=== PATIENT | female | born 1950 | race Caucasian/White ===

== ENCOUNTER 2019-12-09 09:16 | Emergency (ER) | payer BC, MEDICARE ==
[~2019-12-09 09:16] MED LIST: HCTZ12.5T GT; IRB150T PO; NAPR-243 PO; PROP60CA PO; TRM50T PO
--- OUTSIDE RECORDS SUMMARY | 2019-12-09 09:52 | XMS REPORT | CCD ---
Author Author Leigh Ann Trevino Organization Nkechi Graves MD, [facility] Address [address] [place] [address] Phone Care Team Providers Care Plating Operator Name Role Phone PP Unavailable CCM Unavailable Summary Purpose Interface Exchange Insurance Providers Payer name Policy type / Coverage type Covered republican ID Effective Begin Date Effective End Date WPS Medicare Part B Medicare Part B [id number] 2015 Unknown [employer] Medicare Part B [id number] 2015 Unknown Family history Brother Diagnosis Age At Onset Heart Attack Unknown Mother Diagnosis Age At Onset Dementia Unknown Father Diagnosis Age At Onset Heart Attack Unknown Social History Social History Element Codes Description Effective Dates Marital status Unknown M amina stanton 01/16/2015 Number of children Unknown 2 01/16/2015 Employment Unknown Retir ed 01/16/[address]: 119521201 Never smoker 01/16/[address]: 656973 Currently drinks alcohol 01/16/2015 Allergies, Adverse Reactions, Alerts Substance Reaction Codes Entered Date Inactivated Date Status diarrhea Unknown 01/16/2015 No In active Date Active Penicillin Unknown 01/16/2015 No In active Date Active Past Medical History Illness Codes Condition Status Onset Date Resolved Date Urinary tract infect ion, site not specified ICD-9: 599.0 ICD-10: N39.0 Active 08/31/2018 Unknown Encounter for genera l adult medical examination with abnormal findings ICD-9: V70.0 ICD-10: Z00.01 Active 05/30/2018 Unknown Encounter for immuni zation ICD-9: V05.9 ICD-10: Z23 Active 05/30/2018 Unknown Essential (primary) hypertension ICD-9: 401.9 ICD-10: I10 Active 03/09/2016 Unknown Impaired fasting glu cose ICD-9: 790.21 ICD-10: R73.01 Active 03/09/2016 Unknown Mixed hyperlipidemia ICD-9: 272.4 ICD-10: E78.2 Active 03/09/2016 Unknown Vitamin D deficiency , unspecified ICD-9: 268.9 ICD-10: E55.9 Active 03/09/2016 Unknown Body mass index (BMI ) 36.0-36.9, adult ICD-9: V85.36 ICD-10: Z68.36 Active 09/20/2015 Unknown Morbid (severe) obes ity due to excess calories ICD-9: 278.01 ICD-10: E66.01 Active 07/22/2015 Unknown Other abnormal glucose ICD-9: 790.29 ICD-10: R73.09 Active 01/15/2015 Unknown Diabetes mellitus Ty pe 2 Unknown Active 01/16/2015 Unknown Hyperlipidemia Unknown Active 01/16/2015 Unknow n Hypertension Unknown Active 01/16/2015 Unknow n Migraines Unknown Resolved 01/16/2015 Unkn own Elevated blood sugar ICD-9: 790.29 Active 01/15/2015 Unknown ESSENTIAL HYPERTENSION ICD-9: 401.9 Active 01/15/2015 Unknown Hyperlipidemia ICD-9: 272.4 Active 01/15/2015 Unknown VITAMIN D DEFICIENCY ICD-9: 268.9 Active 01/15/2015 Unknown Problems Condition Codes Effectiv e Dates Condition Status Urinary tract infect ion, site not specified ICD-9: 599.0 ICD-10: N39.0 08/31/2018 Active Encounter for genera l adult medical examination with abnormal findings ICD-9: V70.0 ICD-10: Z00.01 05/30/2018 Active Encounter for immuni zation ICD-9: V05.9 ICD-10: Z23 05/30/2018 Active Essential (primary) hypertension ICD-9: 401.9 ICD-10: I10 03/09/2016 Active Impaired fasting glu cose ICD-9: 790.21 ICD-10: R73.01 03/09/2016 Active Mixed hyperlipidemia ICD-9: 272.4 ICD-10: E78.2 03/09/2016 Active Vitamin D deficiency , unspecified ICD-9: 268.9 ICD-10: E55.9 03/09/2016 Active Body mass index (BMI ) 36.0-36.9, adult ICD-9: V85.36 ICD-10: Z68.36 09/20/2015 Active Morbid (severe) obes ity due to excess calories ICD-9: 278.01 ICD-10: E66.01 07/22/2015 Active Other abnormal glucose ICD-9: 790.29 ICD-10: R73.09 01/15/2015 Active Diabetes mellitus Ty pe 2 Unknown 01/16/2015 Activ e Hyperlipidemia Unknown 01/16/2015 Active Hypertension Unknown 01/16/2015 Active Migraines Unknown 01/16/2015 Resolved Elevated blood sugar ICD-9: 790.29 01/15/2015 Active ESSENTIAL HYPERTENSION ICD-9: 401.9 01/15/2015 Active Hyperlipidemia ICD-9: 272.4 01/15/2015 Active VITAMIN D DEFICIENCY ICD-9: 268.9 01/15/2015 Active Medications Medication Codes Instruc tions Start Date Stop Date Sta tus Fill Instructions Benicar 40 mg tablet RxNorm: 176876 1 Tablet(s) PO daily 12/04/2018 04/02/2019 Active replaces irbesartan- wants 30 days but o k to fill 90 if cheaper Benicar 40 mg tablet RxNorm: 014179 1 Tablet(s) PO daily 12/04/2018 12/03/2018 Inactive propranolol 60 mg ta blet RxNorm: 470838 1 Tablet(s) PO BID TA KE ONE TABLET BY MOUTH TWICE A DAY 08/31/2018 11/23/2019 Active hydrochlorothiazide 12.5 mg capsule RxNorm: 721797 TAKE ONE CAPSULE BY M OUTH DAILY 08/31/2018 05/27/2019 Ac tive irbesartan 150 mg ta blet RxNorm: 912730 1 Tablet(s) PO daily TAKE ONE TABLET BY MOUTH DAILY 08/31/2018 08/30/2018 Inactive irbesartan 150 mg ta blet RxNorm: 701585 TAKE ONE TABLET BY MO UTH DAILY 08/31/2018 12/03/2018 In active hydrochlorothiazide 12.5 mg capsule RxNorm: 327648 1 Capsule(s) PO daily TAKE ONE CAPSULE BY MOUTH DAILY 08/31/2018 08/30/2018 Inactive Keflex 500 mg capsule RxNorm: 522222 1 Capsule(s) PO TID 08/31/2018 09/06/2018 Inactive hydrochlorothiazide 12.5 mg capsule RxNorm: TAKE ONE CAPSULE BY M OUTH DAILY 08/16/2017 08/10/2018 In active irbesartan 150 mg ta blet RxNorm: 748766 TAKE ONE TABLET BY MO UTH DAILY 08/16/2017 08/10/2018 In active propranolol 60 mg ta blet RxNorm: 222136 1 Tablet(s) PO BID TA KE ONE TABLET BY MOUTH TWICE A DAY 04/20/2017 07/13/2018 Inactive propranolol 60 mg ta blet RxNorm: 703433 TAKE ONE TABLET BY MO UTH TWICE A DAY 04/18/2017 04/19/2017 In active irbesartan 150 mg ta blet RxNorm: 191461 TAKE ONE TABLET BY MO UTH DAILY 10/31/2016 07/27/2017 In active hydrochlorothiazide 12.5 mg capsule RxNorm: 945093 TAKE ONE CAPSULE BY M [facility] DAILY 10/31/2016 07/27/2017 In active propranolol 60 mg ta blet RxNorm: 783744 TAKE ONE TABLET BY MO UTH TWICE A DAY 10/26/2016 01/23/2017 In active Zithromax Z-Andres 250 mg tablet RxNorm: 701073 1 Tablet(s) PO UD 08/17/2016 04/17/2017 Inactive z pack as directed propranolol 60 mg ta blet RxNorm: 275333 1 Tablet(s) PO BID 04/19/2016 04/18/2016 Inactive propranolol 60 mg ta blet RxNorm: 496519 1 Tablet(s) PO BID 04/19/2016 08/16/2016 Inactive Contrave 8 mg-90 mg tablet,extended release RxNorm: 2858750 2 Tablet(s) PO BID 09/21/2015 03/09/2016 In active propranolol ER 120 m g capsule,24 hr,extended release RxNorm: 326753 1 Capsule(s) PO daily 07/23/2015 04/18/2016 Inactive irbesartan 150 mg ta blet RxNorm: 839874 1 Tablet(s) PO daily 07/23/2015 07/16/2016 Inactive hydrochlorothiazide 12.5 mg capsule RxNorm: 1 Capsule(s) PO daily 07/23/2015 07/16/2016 In active PLEASE GIVE PT 90 ON ALL MEDICINES Vitamin D3 2,000 uni t capsule RxNorm: 498146 1 Capsule(s) PO daily 07/23/2015 09/23/2015 Inactive Belviq 10 mg tablet RxNorm: 2993392 1 Tablet(s) PO BID 07/23/2015 09/20/2015 Inactive Vitamin D2 50,000 un it capsule RxNorm: 805366 1 Capsule(s) PO weekl y and 2000u daily of vit d 01/16/2015 04/15/2015 Inactive and take 2000 u daily of Vi t D as well Vitamin D2 50,000 un it capsule RxNorm: 563018 1 Capsule(s) PO weekly 01/16/2015 01/15/2015 Inactive and take 2000 u daily of Vit D as well propranolol ER 120 m g capsule,24 hr,extended release RxNorm: 007755 1 Capsule(s) PO daily 01/16/2015 07/14/2015 Inactive hydrochlorothiazide 12.5 mg capsule RxNorm: 1 Capsule(s) PO daily 01/16/2015 07/14/2015 In active PLEASE GIVE PT 90 ON ALL MEDICINES hydrochlorothiazide 12.5 mg capsule RxNorm: 512530 1 Capsule(s) PO daily 01/16/2015 01/15/2015 In active propranolol ER 120 m g capsule,24 hr,extended release RxNorm: 727133 1 Capsule(s) PO daily 01/16/2015 01/15/2015 Inactive irbesartan 150 mg ta blet RxNorm: 20000314 1 Tablet(s) PO daily 01/16/2015 07/14/2015 Inactive irbesartan 150 mg ta blet RxNorm: 20000314 1 Tablet(s) PO daily 01/16/2015 01/15/2015 Inactive Vitamin D3 5,000 uni t tablet RxNorm: 865360 1 Tablet(s) PO daily No Start Date Active Zithromax Z-Andres 250 mg tablet RxNorm: 681094 1 Tablet(s) PO UD No Start Date 08/16/2016 Inactive z pack as directed irbesartan 150 mg ta blet RxNorm: 529010 1 Tablet(s) PO daily No Start Date 01/15/2015 Inactive Vitamin D3 2,000 uni t capsule RxNorm: 108792 1 Capsule(s) PO daily No Start Date 07/22/2015 Inactive propranolol ER 120 m g capsule,24 hr,extended release RxNorm: 211222 1 Capsule(s) PO daily No Start Date 01/15/2015 Inactive hydrochlorothiazide 12.5 mg capsule RxNorm: 1 Capsule(s) PO daily No Start Date 01/15/2015 Inactive Medication Administered No Medication Administered data Immunizations Vaccine Codes Date Status Pneumococcal (Adult) CVX: 133 05/30/2018 completed Assessments Condition Codes Effectiv e Dates Urinary tract infection, site not specified ICD-10: N39.0 ICD-9: 599.0 08/31/2018 Encounter for immunization ICD-10: Z 23 ICD-9: V05.9 05/30/2018 Encounter for general adult medical exam ination with abnormal findings ICD-10: Z00.01 ICD-9: V70.0 05/30/2018 Mixed hyperlipidemia ICD-10: E78.2 ICD-9: 272.4 04/20/2017 Essential (primary) hypertension ICD -10: I10 ICD-9: 401.9 04/20/2017 Vitamin D deficiency, unspecified IC D-10: E55.9 ICD-9: 268.9 04/20/2017 Impaired fasting glucose ICD-10: R73 .01 ICD-9: 790.21 04/20/2017 Body mass index (BMI) 36.0-36.9, adult ICD-10: Z68.36 ICD-9: V85.36 09/21/2015 Other abnormal glucose ICD-10: R73.0 9 ICD-9: 790.29 07/23/2015 Morbid (severe) obesity due to excess calories ICD-10: E66.01 ICD-9: 278.01 07/23/2015 Hyperlipidemia ICD-9: 272.4 01/16/2015 ESSENTIAL HYPERTENSION ICD-9: 401.9 01/16/2015 VITAMIN D DEFICIENCY ICD-9: 268.9 01/16/2015 Elevated blood sugar ICD-9: 790.29 01/16/2015 Reason For Visit Reason For Visit Effective Dates Notes urinary urgency 08/31/2018 Annual Medicare Wellness Exam 05/30/2018 hypertension 04/20/2017 hypertension 03/10/2016 weight loss 09/21/2015 hypertension 07/23/2015 hypertension 01/16/2015 Results Observation Observation Code Item Item Code Result Date Tsh Ord6 hTSH II 1.41 uIU/mL 04/20/2017 Lipid Ord30 CHOL 235 mg/dL 04/20/2017 Lipid Ord30 HDL 34.0 mg/dl 04/20/2017 Lipid Ord30 TRIG 255 mg/dL 04/20/2017 Lipid Ord30 LDL 150 mg/dL 04/20/2017 Lipid Ord30 C/HDL 6.9 Ratio 04/20/2017 Cbc With Differential Ord2 WBC 8.04 K/ul 04/20/2017 Cbc With Differential Ord2 RBC 4.72 M/ul 04/20/2017 Cbc With Differential Ord2 HGB 14.4 g/dl 04/20/2017 Cbc With Differential Ord2 HCT 43.1 % 04/20/2017 Cbc With Differential Ord2 Neut% 63.6 % 04/20/2017 Cbc With Differential Ord2 MCV 91.3 fl 04/20/2017 Cbc With Differential Ord2 Lymph% 27.5 % 04/20/2017 Cbc With Differential Ord2 MCH 30.5 pg 04/20/2017 Cbc With Differential Ord2 [place]% 7.2 % 04/20/2017 Cbc With Differential Ord2 MCHC 33.4 pg 04/20/2017 Cbc With Differential Ord2 Eos% 1.2 % 04/20/2017 Cbc With Differential Ord2 PLT 279 K/ul 04/20/2017 Cbc With Differential Ord2 Baso% 0.5 % 04/20/2017 Cbc With Differential Ord2 RDW 13.4 % 04/20/2017 Cbc With Differential Ord2 Neut ABS# 5.11 K/ul 04/20/2017 Cbc With Differential Ord2 Lymph ABS# 2.21 K/ul 04/20/2017 Cbc With Differential Ord2 [place] ABS# 0.6 K/ul 04/20/2017 Cbc With Differential Ord2 Eos ABS# 0.1 K/ul 04/20/2017 Cbc With Differential Ord2 Baso ABS# 0.0 K/ul 04/20/2017 %Hba1C Hmq414 % HbA1c 51856-9 5.9 % 04/20/2017 %Hba1C Urj848 Gluc Ave 123 mg/dL 04/20/2017 Vitamin D 25 Oh Wzv0457 VITAMIN D, 25 HYDROXY 53.49 ng/mL 04/20/2017 Comp Metabolic Wlv597 NA 139 mEq/L 04/20/2017 Comp Metabolic Rbs097 K 4.4 mEq/L 04/20/2017 Comp Metabolic Bpg009 CL 100 mEq/L 04/20/2017 Comp Metabolic Asv391 CO2 27.0 mEq/L 04/20/2017 Comp Metabolic Wtw736 AN ION GAP 16 04/20/2017 Comp Metabolic Ylr097 GL UCOSE 113 mg/dL 04/20/2017 Comp Metabolic Nxe377 Cr eat 0.8 mg/dL 04/20/2017 Comp Metabolic Uae497 eG FR 77 ml/min/1.73m2 04/20 Comp Metabolic Nsn143 BUN 17 mg/dL 04/20/2017 Comp Metabolic Mtp062 B/ C Ratio 21.5 Ratio 04/20/2017 Comp Metabolic Kxv617 CA LCIUM 9.9 mg/dL 04/20/2017 Comp Metabolic Rbi590 AL K PHOS 69 U/L 04/20/2017 Comp Metabolic Dko215 T(SGOT) 16 U/L 04/20/2017 Comp Metabolic Jxb734 AL T(SGPT) 13 U/L 04/20/2017 Comp Metabolic Ccp322 BI LI T 0.7 mg/dL 04/20/2017 Comp Metabolic Lqs944 AL BUMIN 4.6 g/dL 04/20/2017 Comp Metabolic Hqb066 TP RO 7.1 g/dL 04/20/2017 Comp Metabolic Vjc201 GL OB 2.6 g/dL 04/20/2017 Comp Metabolic Vpo374 A/ G Ratio 1.8 Ratio 04/20/2017 Comp Metabolic Okv068 Os mo 280 mOsmo 04/20/2017 Quick Strep Pnb3461 Quic k Strep Negative 08/17/2016 Influenza A+B Zuf097 Inf anastacia A+B Negative 08/17/2016 Vitamin D 25 Oh Fip2188 VITAMIN D, 25 HYDROXY 43.92 ng/mL 03/11/2016 %Hba1C Zbb035 % HbA1c 07628-1 5.9 % 03/10/2016 %Hba1C Smm758 Gluc Ave 123 mg/dL 03/10/2016 Comp Metabolic Het828 NA 136 mEq/L 03/10/2016 Comp Metabolic Pfd418 K 4.1 mEq/L 03/10/2016 Comp Metabolic Jea401 CL 100 mEq/L 03/10/2016 Comp Metabolic Kuu042 CO2 29.0 mEq/L 03/10/2016 Comp Metabolic Thd482 AN ION GAP 11 03/10/2016 Comp Metabolic Zsc830 GL UCOSE 110 mg/dL 03/10/2016 Comp Metabolic Jjt095 Cr eat 0.8 mg/dL 03/10/2016 Comp Metabolic Qei797 eG FR 74 ml/min/1.73m2 03/10 Comp Metabolic Phz987 BUN 26 mg/dL 03/10/2016 Comp Metabolic Ffo927 B/ C Ratio 31.7 Ratio 03/10/2016 Comp Metabolic Vfs595 CA LCIUM 9.7 mg/dL 03/10/2016 Comp Metabolic Ydf392 AL K PHOS 62 U/L 03/10/2016 Comp Metabolic Qjc914 T(SGOT) 17 U/L 03/10/2016 Comp Metabolic Tkh423 AL T(SGPT) 15 U/L 03/10/2016 Comp Metabolic Duy334 BI LI T 0.6 mg/dL 03/10/2016 Comp Metabolic Uzb665 AL BUMIN 4.4 g/dL 03/10/2016 Comp Metabolic Orn722 TP RO 7.0 g/dL 03/10/2016 Comp Metabolic Ikg470 GL OB 2.6 g/dL 03/10/2016 Comp Metabolic Rcy553 A/ G Ratio 1.7 Ratio 03/10/2016 Comp Metabolic Mmp196 Os mo 277 mOsmo 03/10/2016 Lipid Ord30 CHOL 229 mg/dL 03/10/2016 Lipid Ord30 HDL 36.0 mg/dl 03/10/2016 Lipid Ord30 TRIG 172 mg/dL 03/10/2016 Lipid Ord30 LDL 159 mg/dL 03/10/2016 Lipid Ord30 C/HDL 6.4 Ratio 03/10/2016 Tsh Ord6 hTSH II 1.40 uIU/mL 03/10/2016 Cbc With Differential Ord2 WBC 7.88 K/ul 03/10/2016 Cbc With Differential Ord2 RBC 4.74 M/ul 03/10/2016 Cbc With Differential Ord2 HGB 14.4 g/dl 03/10/2016 Cbc With Differential Ord2 HCT 44.2 % 03/10/2016 Cbc With Differential Ord2 Neut% 59.3 % 03/10/2016 Cbc With Differential Ord2 MCV 93.2 fl 03/10/2016 Cbc With Differential Ord2 Lymph% 31.0 % 03/10/2016 Cbc With Differential Ord2 MCH 30.4 pg 03/10/2016 Cbc With Differential Ord2 [place]% 7.9 % 03/10/2016 Cbc With Differential Ord2 MCHC 32.6 pg 03/10/2016 Cbc With Differential Ord2 Eos% 1.4 % 03/10/2016 Cbc With Differential Ord2 PLT 198 K/ul 03/10/2016 Cbc With Differential Ord2 Baso% 0.4 % 03/10/2016 Cbc With Differential Ord2 RDW 13.5 % 03/10/2016 Cbc With Differential Ord2 Neut ABS# 4.68 K/ul 03/10/2016 Cbc With Differential Ord2 Lymph ABS# 2.44 K/ul 03/10/2016 Cbc With Differential Ord2 [place] ABS# 0.6 K/ul 03/10/2016 Cbc With Differential Ord2 Eos ABS# 0.1 K/ul 03/10/2016 Cbc With Differential Ord2 Baso ABS# 0.0 K/ul 03/10/2016 Lipid Ord30 CHOL 196 mg/dL 09/21/2015 Lipid Ord30 HDL 34.0 mg/dl 09/21/2015 Lipid Ord30 TRIG 190 mg/dL 09/21/2015 Lipid Ord30 LDL 124 mg/dL 09/21/2015 Lipid Ord30 C/HDL 5.8 Ratio 09/21/2015 %Hba1C Lce473 % HbA1c 22607-5 5.8 % 09/21/2015 %Hba1C Mnd622 Gluc Ave 120 mg/dL 09/21/2015 Vitamin D 25 Oh Tog1823 VITAMIN D, 25 HYDROXY 32.62 ng/mL 09/21/2015 Comp Metabolic Lqv776 NA 139 mEq/L 09/21/2015 Comp Metabolic Cit259 K 4.0 mEq/L 09/21/2015 Comp Metabolic Mff094 CL 101 mEq/L 09/21/2015 Comp Metabolic Vts349 CO2 30.0 mEq/L 09/21/2015 Comp Metabolic Pid983 AN ION GAP 12 09/21/2015 Comp Metabolic Pzv795 GL UCOSE 98 mg/dL 09/21/2015 Comp Metabolic Pvs917 Cr eat 0.8 mg/dL 09/21/2015 Comp Metabolic Lfg700 eG FR 81 ml/min/1.73m2 09/20 Comp Metabolic Acg070 BUN 14 mg/dL 09/21/2015 Comp Metabolic Tvv580 B/ C Ratio 18.4 Ratio 09/21/2015 Comp Metabolic Whf090 CA LCIUM 9.5 mg/dL 09/21/2015 Comp Metabolic Wny277 AL K PHOS 57 U/L 09/21/2015 Comp Metabolic Lqa739 T(SGOT) 12 U/L 09/21/2015 Comp Metabolic Ira163 AL T(SGPT) 10 U/L 09/21/2015 Comp Metabolic Owy346 BI LI T 0.7 mg/dL 09/21/2015 Comp Metabolic Uar472 AL BUMIN 4.2 g/dL 09/21/2015 Comp Metabolic Zzk395 TP RO 6.7 g/dL 09/21/2015 Comp Metabolic Iyi795 GL OB 2.5 g/dL 09/21/2015 Comp Metabolic Yhj706 A/ G Ratio 1.7 Ratio 09/21/2015 Comp Metabolic Kzc938 Os mo 278 mOsmo 09/21/2015 Tsh Ord6 hTSH II 1.21 uIU/mL 09/21/2015 Cbc With Differential Ord2 WBC 7.82 K/ul 09/21/2015 Cbc With Differential Ord2 RBC 4.51 M/ul 09/21/2015 Cbc With Differential Ord2 HGB 13.6 g/dl 09/21/2015 Cbc With Differential Ord2 HCT 42.0 % 09/21/2015 Cbc With Differential Ord2 Neut% 59.2 % 09/21/2015 Cbc With Differential Ord2 MCV 93.1 fl 09/21/2015 Cbc With Differential Ord2 Lymph% 29.8 % 09/21/2015 Cbc With Differential Ord2 MCH 30.2 pg 09/21/2015 Cbc With Differential Ord2 [place]% 8.7 % 09/21/2015 Cbc With Differential Ord2 MCHC 32.4 pg 09/21/2015 Cbc With Differential Ord2 Eos% 1.8 % 09/21/2015 Cbc With Differential Ord2 PLT 248 K/ul 09/21/2015 Cbc With Differential Ord2 Baso% 0.5 % 09/21/2015 Cbc With Differential Ord2 RDW 13.4 % 09/21/2015 Cbc With Differential Ord2 Neut ABS# 4.63 K/ul 09/21/2015 Cbc With Differential Ord2 Lymph ABS# 2.33 K/ul 09/21/2015 Cbc With Differential Ord2 [place] ABS# 0.7 K/ul 09/21/2015 Cbc With Differential Ord2 Eos ABS# 0.1 K/ul 09/21/2015 Cbc With Differential Ord2 Baso ABS# 0.0 K/ul 09/21/2015 Cbc With Differential Ord2 New Analyzer Notice Please note new ref ranges s tarting 07-22-2015 due to implemntation of new five part differential hematolgy analyzer. 09/21/2015 Tsh Ord6 hTSH II 1.39 uIU/mL 01/16/2015 Comp Metabolic Gtn267 NA 137 mEq/L 01/16/2015 Comp Metabolic Cxg639 K 4.3 mEq/L 01/16/2015 Comp Metabolic Kwx393 CL 101 mEq/L 01/16/2015 Comp Metabolic Gls462 CO2 30.0 mEq/L 01/16/2015 Comp Metabolic Zkg485 AN ION GAP 10 01/16/2015 Comp Metabolic Vxh247 GL UCOSE 111 mg/dL 01/16/2015 Comp Metabolic Qdx570 Cr eat 0.8 mg/dL 01/16/2015 Comp Metabolic Hqv625 eG FR 78 ml/min/1.73m2 01/16 Comp Metabolic Rer662 BUN 14 mg/dL 01/16/2015 Comp Metabolic Hbs519 B/ C Ratio 17.7 Ratio 01/16/2015 Comp Metabolic Epm807 CA LCIUM 9.8 mg/dL 01/16/2015 Comp Metabolic Par356 AL K PHOS 76 U/L 01/16/2015 Comp Metabolic Snl963 T(SGOT) 12 U/L 01/16/2015 Comp Metabolic Iqr940 AL T(SGPT) 11 U/L 01/16/2015 Comp Metabolic Zgi049 BI LI T 0.7 mg/dL 01/16/2015 Comp Metabolic Kob413 AL BUMIN 4.3 g/dL 01/16/2015 Comp Metabolic Pgm652 TP RO 7.0 g/dL 01/16/2015 Comp Metabolic Iql415 GL OB 2.7 g/dL 01/16/2015 Comp Metabolic Fgj370 A/ G Ratio 1.6 Ratio 01/16/2015 Comp Metabolic Dnf285 Os mo 275 mOsmo 01/16/2015 Vitamin D 25 Oh Tuq4540 VITAMIN D, 25 HYDROXY 19.37 ng/mL 01/16/2015 %Hba1C Xia605 % HbA1c 27289-2 5.8 % 01/16/2015 %Hba1C Sfe044 Gluc Ave 120 mg/dL 01/16/2015 Cbc With Differential Ord2 WBC 10.0 K/uL 01/16/2015 Cbc With Differential Ord2 LYM 2.4 K/uL 01/16/2015 Cbc With Differential Ord2 LYM% 24.2 % 01/16/2015 Cbc With Differential Ord2 NEUT/GRAN 7.0 K/uL 01/16/2015 Cbc With Differential Ord2 NEUT/GRAN % 70.5 % 01/16/2015 Cbc With Differential Ord2 MID 0.5 K/uL 01/16/2015 Cbc With Differential Ord2 MID% 5.3 % 01/16/2015 Cbc With Differential Ord2 RBC 4.65 M/uL 01/16/2015 Cbc With Differential Ord2 HGB 14.2 g/dL 01/16/2015 Cbc With Differential Ord2 HCT 42.7 % 01/16/2015 Cbc With Differential Ord2 MCV 92 fL 01/16/2015 Cbc With Differential Ord2 MCH 31 pg 01/16/2015 Cbc With Differential Ord2 MCHC 33 g/dL 01/16/2015 Cbc With Differential Ord2 PLT 275 K/uL 01/16/2015 Cbc With Differential Ord2 RDW 13.5 % 01/16/2015 Lipid Ord30 CHOL 229 mg/dL 01/16/2015 Lipid Ord30 HDL 35.0 mg/dl 01/16/2015 Lipid Ord30 TRIG 282 mg/dL 01/16/2015 Lipid Ord30 LDL 138 mg/dL 01/16/2015 Lipid Ord30 C/HDL 6.5 Ratio 01/16/2015 Review of Systems System Result Effective Dates Constitutional No recent illness 08/31/2018 Constitutional No anorexia 08/31/2018 Constitutional No night sweats 08/31/2018 Constitutional No chills 08/31/2018 Constitutional No diaphoresis 08/31/2018 Constitutional No fatigue 08/31/2018 Constitutional No fever 08/31/2018 Constitutional No insomnia 08/31/2018 Constitutional No malaise 08/31/2018 Eyes No eye discharge Eyes No eye erythema Ears/Nose/Throat/Neck No dizziness 08/31/2018 Ears/Nose/Throat/Neck No headache 08/31/2018 Ears/Nose/Throat/Neck No nasal discharge 08/31/2018 Cardiovascular No chest pain/pressure 08/31/2018 Cardiovascular No dyspnea 08/31/2018 Cardiovascular No edema 08/31/2018 Respiratory No productive sputum 08/31/2018 Respiratory No aspiration 08/31/2018 Respiratory No cough Gastrointestinal No abdominal pain 08/31/2018 Gastrointestinal No constipation 08/31/2018 Gastrointestinal No diarrhea 08/31/2018 Genitourinary/Nephrology No breast c omplaint 08/31/2018 Musculoskeletal No joint complaint 08/31/2018 Dermatologic No rash Neurologic No alteration of consciousness 08/31/2018 Psychiatric No anxiety 0 08/31/2018 Psychiatric No depression 08/31/2018 Endocrine No dry or coarse skin 08/31/2018 Cardiovascular hypertension 08/31/2018 Genitourinary/Nephrology dysuria 08/31/2018 Genitourinary/Nephrology urinary urgency 08/31/2018 Genitourinary/Nephrology urinary frequency 08/31/2018 Constitutional No recent illness 05/30/2018 Constitutional No chills 05/30/2018 Constitutional No diaphoresis 05/30/2018 Constitutional No fever 05/30/2018 Eyes No eye erythema Ears/Nose/Throat/Neck No nasal discharge 05/30/2018 Cardiovascular No chest pain/pressure 05/30/2018 Cardiovascular No dyspnea 05/30/2018 Respiratory No cough Respiratory No dyspnea 1 07/30/2017 Neurologic No alteration of consciousness 05/30/2018 Neurologic No mental status change 05/30/2018 Constitutional No recent illness 04/20/2017 Constitutional No anorexia 04/20/2017 Constitutional No night sweats 04/20/2017 Constitutional No chills 04/20/2017 Constitutional No diaphoresis 04/20/2017 Constitutional No fatigue 04/20/2017 Constitutional No fever 04/20/2017 Constitutional No insomnia 04/20/2017 Constitutional No malaise 04/20/2017 Eyes No eye discharge Eyes No eye erythema 06/2017 Ears/Nose/Throat/Neck No dizziness 04/20/2017 Ears/Nose/Throat/Neck No headache 04/20/2017 Ears/Nose/Throat/Neck No nasal discharge 04/20/2017 Cardiovascular No chest pain/pressure 04/20/2017 Cardiovascular No dyspnea 04/20/2017 Cardiovascular No edema 04/20/2017 Respiratory No productive sputum 04/20/2017 Respiratory No aspiration 04/20/2017 Respiratory No cough 06/2017 Gastrointestinal No abdominal pain 04/20/2017 Gastrointestinal No constipation 04/20/2017 Gastrointestinal No diarrhea 04/20/2017 Genitourinary/Nephrology No breast c omplaint 04/20/2017 Musculoskeletal No joint complaint 04/20/2017 Dermatologic No rash 06/2017 Neurologic No alteration of consciousness 04/20/2017 Psychiatric No anxiety 1 Psychiatric No depression 04/20/2017 Endocrine No dry or coarse skin 04/20/2017 Constitutional No recent illness 03/10/2016 Constitutional No anorexia 03/10/2016 Constitutional No night sweats 03/10/2016 Constitutional No chills 03/10/2016 Constitutional No diaphoresis 03/10/2016 Constitutional No fatigue 03/10/2016 Constitutional No fever 03/10/2016 Constitutional No insomnia 03/10/2016 Constitutional No malaise 03/10/2016 Eyes No eye discharge Eyes No eye erythema 07/2015 Ears/Nose/Throat/Neck No dizziness 03/10/2016 Ears/Nose/Throat/Neck No headache 03/10/2016 Ears/Nose/Throat/Neck No nasal discharge 03/10/2016 Cardiovascular No chest pain/pressure 03/10/2016 Cardiovascular No dyspnea 03/10/2016 Cardiovascular No edema 03/10/2016 Respiratory No productive sputum 03/10/2016 Respiratory No aspiration 03/10/2016 Respiratory No cough 07/2015 Gastrointestinal No abdominal pain 03/10/2016 Gastrointestinal No constipation 03/10/2016 Gastrointestinal No diarrhea 03/10/2016 Genitourinary/Nephrology No breast c omplaint 03/10/2016 Musculoskeletal No joint complaint 03/10/2016 Dermatologic No rash 07/2015 Neurologic No alteration of consciousness 03/10/2016 Psychiatric No anxiety 0 03/10/2016 Psychiatric No depression 03/10/2016 Endocrine No dry or coarse skin 03/10/2016 Constitutional No recent illness 09/21/2015 Constitutional No anorexia 09/21/2015 Constitutional No night sweats 09/21/2015 Constitutional No chills 09/21/2015 Constitutional No diaphoresis 09/21/2015 Constitutional No fatigue 09/21/2015 Constitutional No fever 09/21/2015 Constitutional No insomnia 09/21/2015 Constitutional No malaise 09/21/2015 Eyes No eye discharge Eyes No eye erythema Ears/Nose/Throat/Neck No dizziness 09/21/2015 Ears/Nose/Throat/Neck No headache 09/21/2015 Ears/Nose/Throat/Neck No nasal discharge 09/21/2015 Cardiovascular No chest pain/pressure 09/21/2015 Cardiovascular No dyspnea 09/21/2015 Cardiovascular No edema 09/21/2015 Respiratory No productive sputum 09/21/2015 Respiratory No aspiration 09/21/2015 Respiratory No cough Gastrointestinal No abdominal pain 09/21/2015 Gastrointestinal No constipation 09/21/2015 Gastrointestinal No diarrhea 09/21/2015 Genitourinary/Nephrology No breast c omplaint 09/21/2015 Musculoskeletal No joint complaint 09/21/2015 Dermatologic No rash Neurologic No alteration of consciousness 09/21/2015 Psychiatric No anxiety 0 09/21/2015 Psychiatric No depression 09/21/2015 Constitutional No recent illness 07/23/2015 Constitutional No anorexia 07/23/2015 Constitutional No night sweats 07/23/2015 Constitutional No chills 07/23/2015 Constitutional No diaphoresis 07/23/2015 Constitutional No fatigue 07/23/2015 Constitutional No fever 07/23/2015 Constitutional No insomnia 07/23/2015 Constitutional No malaise 07/23/2015 Eyes No eye discharge Eyes No eye erythema Ears/Nose/Throat/Neck No dizziness 07/23/2015 Ears/Nose/Throat/Neck No headache 07/23/2015 Ears/Nose/Throat/Neck No nasal discharge 07/23/2015 Cardiovascular No chest pain/pressure 07/23/2015 Cardiovascular No dyspnea 07/23/2015 Cardiovascular No edema 07/23/2015 Respiratory No productive sputum 07/23/2015 Respiratory No aspiration 07/23/2015 Respiratory No cough Gastrointestinal No abdominal pain 07/23/2015 Gastrointestinal No constipation 07/23/2015 Gastrointestinal No diarrhea 07/23/2015 Genitourinary/Nephrology No breast c omplaint 07/23/2015 Musculoskeletal No joint complaint 07/23/2015 Dermatologic No rash Neurologic No alteration of consciousness 07/23/2015 Psychiatric No anxiety 0 07/23/2015 Psychiatric No depression 07/23/2015 Constitutional No recent illness 01/16/2015 Constitutional No anorexia 01/16/2015 Constitutional No night sweats 01/16/2015 Constitutional No diaphoresis 01/16/2015 Constitutional No chills 01/16/2015 Constitutional No fatigue 01/16/2015 Constitutional No insomnia 01/16/2015 Constitutional No fever 01/16/2015 Constitutional No malaise 01/16/2015 Constitutional No weight loss 01/16/2015 Constitutional No weight gain 01/16/2015 Eyes No eye discharge Eyes No eye erythema 04/2015 Ears/Nose/Throat/Neck No dizziness 01/16/2015 Ears/Nose/Throat/Neck No headache 01/16/2015 Ears/Nose/Throat/Neck nasal allergies 01/16/2015 Ears/Nose/Throat/Neck No nasal discharge 01/16/2015 Cardiovascular No chest pain/pressure 01/16/2015 Cardiovascular No dyspnea 01/16/2015 Cardiovascular No edema 01/16/2015 Respiratory No productive sputum 01/16/2015 Respiratory No aspiration 01/16/2015 Respiratory No cough 04/2015 Gastrointestinal No abdominal pain 01/16/2015 Gastrointestinal No constipation 01/16/2015 Gastrointestinal No diarrhea 01/16/2015 Genitourinary/Nephrology No breast c omplaint 01/16/2015 Musculoskeletal No joint complaint 01/16/2015 Dermatologic No rash 04/2015 Neurologic No alteration of consciousness 01/16/2015 Psychiatric No depression 01/16/2015 Psychiatric No anxiety 0 01/16/2015 Hematologic/Lymphatic No abnormal bl eeding and bruising 01/16/2015 Endocrine No hair loss 0 01/16/2015 Endocrine No polydipsia 01/16/2015 Endocrine No polyuria Physical Exam Exam Name System Name It em Name Status Result Effective Dates Notes Full Exam - General 1994 Constitutional general appearance Overall: well developed 08/31/2018 None Full Exam - General 1994 Constitutional general appearance Overall: in no acute distress 08/31/2018 None Full Exam - General 1994 Constitutional general appearance Overall: well nourished 08/31/2018 None Full Exam - General 1994 Eyes conjunctiva/eyelids Overall: conjunctiva clear 08/31/2018 None Full Exam - General 1994 Eyes conjunctiva/eyelids Overall: cornea clear 08/31/2018 None Full Exam - General 1994 Eyes conjunctiva/eyelids Overall: eyelids normal 08/31/2018 None Full Exam - General 1994 Eyes pupils and irises Overall: pupils equal, round, reactive to light and accomodation 08/31/2018 None Full Exam - General 1994 Ears/Nose/Throat otoscopic exam Overall: external auditory canals clear 08/31/2018 None Full Exam - General 1994 Ears/Nose/Throat otoscopic exam Overall: tympanic membranes clear 08/31/2018 None Full Exam - General 1994 Ears/Nose/Throat oral cavity/pharynx/larynx Overall: oral mucosa clear 08/31/2018 None Full Exam - General 1994 Ears/Nose/Throat oral cavity/pharynx/larynx Overall: oropharyngeal mucosa clear 08/31/2018 None Full Exam - General 1994 Ears/Nose/Throat oral cavity/pharynx/larynx Overall: no masses 08/31/2018 None Full Exam - General 1994 Respiratory auscultation Overall: breath sounds clear bilaterally 08/31/2018 None Full Exam - General 1994 Respiratory respiratory effort/rhythm Overall: no retractions 08/31/2018 None Full Exam - General 1994 Respiratory respiratory effort/rhythm Overall: normal rate 08/31/2018 None Full Exam - General 1994 Cardiovascular auscultation of heart Overall: regular rate 08/31/2018 None Full Exam - General 1994 Cardiovascular auscultation of heart Overall: normal heart sounds 08/31/2018 None Full Exam - General 1994 Cardiovascular auscultation of heart Overall: no murmurs 08/31/2018 None Full Exam - General 1994 Abdomen abdominal exam Overall: no tenderness 08/31/2018 None Full Exam - General 1994 Abdomen abdominal exam Overall: normal bowel sounds 08/31/2018 None Full Exam - General 1994 Lymphatic neck nodes Overall: anterior cervical chain benign 08/31/2018 None Full Exam - General 1994 Lymphatic neck nodes Overall: posterior cervical chain benign 08/31/2018 None Full Exam - General 1994 Musculoskeletal gait and station Overall: normal gait 08/31/2018 None Full Exam - General 1994 Musculoskeletal gait and station Overall: normal station 08/31/2018 None Full Exam - General 1994 Integument inspection of skin Overall: no rash, lesions 08/31/2018 None Full Exam - General 1994 Neurologic cranial nerves Overall: crainial nerves 2 - 12 grossly intact 08/31/2018 None Full Exam - General 1994 Psychiatric orientation/consciousness Overall: oriented to person, place and time 08/31/2018 None Full Exam - General 1994 Constitutional general appearance Overall: well developed 05/30/2018 None Full Exam - General 1994 Constitutional general appearance Overall: in no acute distress 05/30/2018 None Full Exam - General 1994 Constitutional general appearance Overall: well nourished 05/30/2018 None Full Exam - General 1994 Eyes conjunctiva/eyelids Overall: conjunctiva clear 05/30/2018 None Full Exam - General 1994 Eyes conjunctiva/eyelids Overall: eyelids normal 05/30/2018 None Full Exam - General 1994 Ears/Nose/Throat lips/teeth/gingiva Overall: benign lips 05/30/2018 None Full Exam - General 1994 Respiratory respiratory effort/rhythm Overall: no retractions 05/30/2018 None Full Exam - General 1994 Respiratory respiratory effort/rhythm Overall: normal rate 05/30/2018 None Full Exam - General 1994 Musculoskeletal head and neck Overall: head atraumatic 05/30/2018 None Full Exam - General 1994 Neurologic cranial nerves Overall: crainial nerves 2 - 12 grossly intact 05/30/2018 None Full Exam - General 1994 Psychiatric orientation/consciousness Overall: oriented to person, place and time 05/30/2018 None Full Exam - General 1994 Psychiatric mood and affect Overall: normal mood and affect 05/30/2018 None Full Exam - General 1994 Psychiatric appearance Overall: well-groomed, good eye contact 05/30/2018 None Full Exam - General 1994 Constitutional general appearance Overall: well developed 04/20/2017 None Full Exam - General 1994 Constitutional general appearance Overall: in no acute distress 04/20/2017 None Full Exam - General 1994 Constitutional general appearance Overall: well nourished 04/20/2017 None Full Exam - General 1994 Eyes conjunctiva/eyelids Overall: conjunctiva clear 04/20/2017 None Full Exam - General 1994 Eyes conjunctiva/eyelids Overall: cornea clear 04/20/2017 None Full Exam - General 1994 Eyes conjunctiva/eyelids Overall: eyelids normal 04/20/2017 None Full Exam - General 1994 Eyes pupils and irises Overall: pupils equal, round, reactive to light and accomodation 04/20/2017 None Full Exam - General 1994 Ears/Nose/Throat otoscopic exam Overall: external auditory canals clear 04/20/2017 None Full Exam - General 1994 Ears/Nose/Throat otoscopic exam Overall: tympanic membranes clear 04/20/2017 None Full Exam - General 1994 Ears/Nose/Throat oral cavity/pharynx/larynx Overall: oral mucosa clear 04/20/2017 None Full Exam - General 1994 Ears/Nose/Throat oral cavity/pharynx/larynx Overall: oropharyngeal mucosa clear 04/20/2017 None Full Exam - General 1994 Ears/Nose/Throat oral cavity/pharynx/larynx Overall: no masses 04/20/2017 None Full Exam - General 1994 Respiratory auscultation Overall: breath sounds clear bilaterally 04/20/2017 None Full Exam - General 1994 Respiratory respiratory effort/rhythm Overall: no retractions 04/20/2017 None Full Exam - General 1994 Respiratory respiratory effort/rhythm Overall: normal rate 04/20/2017 None Full Exam - General 1994 Cardiovascular auscultation of heart Overall: regular rate 04/20/2017 None Full Exam - General 1994 Cardiovascular auscultation of heart Overall: normal heart sounds 04/20/2017 None Full Exam - General 1994 Cardiovascular auscultation of heart Overall: no murmurs 04/20/2017 None Full Exam - General 1994 Abdomen abdominal exam Overall: no tenderness 04/20/2017 None Full Exam - General 1994 Abdomen abdominal exam Overall: normal bowel sounds 04/20/2017 None Full Exam - General 1994 Lymphatic neck nodes Overall: anterior cervical chain benign 04/20/2017 None Full Exam - General 1994 Lymphatic neck nodes Overall: posterior cervical chain benign 04/20/2017 None Full Exam - General 1994 Musculoskeletal gait and station Overall: normal gait 04/20/2017 None Full Exam - General 1994 Musculoskeletal gait and station Overall: normal station 04/20/2017 None Full Exam - General 1994 Integument inspection of skin Overall: no rash, lesions 04/20/2017 None Full Exam - General 1994 Neurologic cranial nerves Overall: crainial nerves 2 - 12 grossly intact 04/20/2017 None Full Exam - General 1994 Psychiatric orientation/consciousness Overall: oriented to person, place and time 04/20/2017 None Full Exam - General 1994 Constitutional general appearance Overall: well developed 03/10/2016 None Full Exam - General 1994 Constitutional general appearance Overall: in no acute distress 03/10/2016 None Full Exam - General 1994 Constitutional general appearance Overall: well nourished 03/10/2016 None Full Exam - General 1994 Eyes conjunctiva/eyelids Overall: conjunctiva clear 03/10/2016 None Full Exam - General 1994 Eyes conjunctiva/eyelids Overall: cornea clear 03/10/2016 None Full Exam - General 1994 Eyes conjunctiva/eyelids Overall: eyelids normal 03/10/2016 None Full Exam - General 1994 Eyes pupils and irises Overall: pupils equal, round, reactive to light and accomodation 03/10/2016 None Full Exam - General 1994 Ears/Nose/Throat otoscopic exam Overall: external auditory canals clear 03/10/2016 None Full Exam - General 1994 Ears/Nose/Throat otoscopic exam Overall: tympanic membranes clear 03/10/2016 None Full Exam - General 1994 Ears/Nose/Throat oral cavity/pharynx/larynx Overall: oral mucosa clear 03/10/2016 None Full Exam - General 1994 Ears/Nose/Throat oral cavity/pharynx/larynx Overall: oropharyngeal mucosa clear 03/10/2016 None Full Exam - General 1994 Ears/Nose/Throat oral cavity/pharynx/larynx Overall: no masses 03/10/2016 None Full Exam - General 1994 Respiratory auscultation Overall: breath sounds clear bilaterally 03/10/2016 None Full Exam - General 1994 Respiratory respiratory effort/rhythm Overall: no retractions 03/10/2016 None Full Exam - General 1994 Respiratory respiratory effort/rhythm Overall: normal rate 03/10/2016 None Full Exam - General 1994 Cardiovascular auscultation of heart Overall: regular rate 03/10/2016 None Full Exam - General 1994 Cardiovascular auscultation of heart Overall: normal heart sounds 03/10/2016 None Full Exam - General 1994 Cardiovascular auscultation of heart Overall: no murmurs 03/10/2016 None Full Exam - General 1994 Abdomen abdominal exam Overall: no tenderness 03/10/2016 None Full Exam - General 1994 Abdomen abdominal exam Overall: normal bowel sounds 03/10/2016 None Full Exam - General 1994 Lymphatic neck nodes Overall: anterior cervical chain benign 03/10/2016 None Full Exam - General 1994 Lymphatic neck nodes Overall: posterior cervical chain benign 03/10/2016 None Full Exam - General 1994 Musculoskeletal gait and station Overall: normal gait 03/10/2016 None Full Exam - General 1994 Musculoskeletal gait and station Overall: normal station 03/10/2016 None Full Exam - General 1994 Integument inspection of skin Overall: no rash, lesions 03/10/2016 None Full Exam - General 1994 Neurologic cranial nerves Overall: crainial nerves 2 - 12 grossly intact 03/10/2016 None Full Exam - General 1994 Psychiatric orientation/consciousness Overall: oriented to person, place and time 03/10/2016 None Full Exam - General 1994 Constitutional general appearance Overall: well developed 09/21/2015 None Full Exam - General 1994 Constitutional general appearance Overall: in no acute distress 09/21/2015 None Full Exam - General 1994 Constitutional general appearance Overall: well nourished 09/21/2015 None Full Exam - General 1994 Eyes conjunctiva/eyelids Overall: conjunctiva clear 09/21/2015 None Full Exam - General 1994 Eyes conjunctiva/eyelids Overall: cornea clear 09/21/2015 None Full Exam - General 1994 Eyes conjunctiva/eyelids Overall: eyelids normal 09/21/2015 None Full Exam - General 1994 Eyes pupils and irises Overall: pupils equal, round, reactive to light and accomodation 09/21/2015 None Full Exam - General 1994 Ears/Nose/Throat otoscopic exam Overall: external auditory canals clear 09/21/2015 None Full Exam - General 1994 Ears/Nose/Throat otoscopic exam Overall: tympanic membranes clear 09/21/2015 None Full Exam - General 1994 Ears/Nose/Throat oral cavity/pharynx/larynx Overall: oral mucosa clear 09/21/2015 None Full Exam - General 1994 Ears/Nose/Throat oral cavity/pharynx/larynx Overall: oropharyngeal mucosa clear 09/21/2015 None Full Exam - General 1994 Ears/Nose/Throat oral cavity/pharynx/larynx Overall: no masses 09/21/2015 None Full Exam - General 1994 Respiratory auscultation Overall: breath sounds clear bilaterally 09/21/2015 None Full Exam - General 1994 Respiratory respiratory effort/rhythm Overall: no retractions 09/21/2015 None Full Exam - General 1994 Respiratory respiratory effort/rhythm Overall: normal rate 09/21/2015 None Full Exam - General 1994 Cardiovascular auscultation of heart Overall: regular rate 09/21/2015 None Full Exam - General 1994 Cardiovascular auscultation of heart Overall: normal heart sounds 09/21/2015 None Full Exam - General 1994 Cardiovascular auscultation of heart Overall: no murmurs 09/21/2015 None Full Exam - General 1994 Abdomen abdominal exam Overall: no tenderness 09/21/2015 None Full Exam - General 1994 Abdomen abdominal exam Overall: normal bowel sounds 09/21/2015 None Full Exam - General 1994 Lymphatic neck nodes Overall: anterior cervical chain benign 09/21/2015 None Full Exam - General 1994 Lymphatic neck nodes Overall: posterior cervical chain benign 09/21/2015 None Full Exam - General 1994 Musculoskeletal gait and station Overall: normal gait 09/21/2015 None Full Exam - General 1994 Musculoskeletal gait and station Overall: normal station 09/21/2015 None Full Exam - General 1994 Integument inspection of skin Overall: no rash, lesions 09/21/2015 None Full Exam - General 1994 Neurologic cranial nerves Overall: crainial nerves 2 - 12 grossly intact 09/21/2015 None Full Exam - General 1994 Psychiatric orientation/consciousness Overall: oriented to person, place and time 09/21/2015 None Full Exam - General 1994 Constitutional general appearance Overall: well developed 07/23/2015 None Full Exam - General 1994 Constitutional general appearance Overall: in no acute distress 07/23/2015 None Full Exam - General 1994 Constitutional general appearance Overall: well nourished 07/23/2015 None Full Exam - General 1994 Eyes conjunctiva/eyelids Overall: conjunctiva clear 07/23/2015 None Full Exam - General 1994 Eyes conjunctiva/eyelids Overall: cornea clear 07/23/2015 None Full Exam - General 1994 Eyes conjunctiva/eyelids Overall: eyelids normal 07/23/2015 None Full Exam - General 1994 Eyes pupils and irises Overall: pupils equal, round, reactive to light and accomodation 07/23/2015 None Full Exam - General 1994 Ears/Nose/Throat otoscopic exam Overall: external auditory canals clear 07/23/2015 None Full Exam - General 1994 Ears/Nose/Throat otoscopic exam Overall: tympanic membranes clear 07/23/2015 None Full Exam - General 1994 Ears/Nose/Throat oral cavity/pharynx/larynx Overall: oral mucosa clear 07/23/2015 None Full Exam - General 1994 Ears/Nose/Throat oral cavity/pharynx/larynx Overall: oropharyngeal mucosa clear 07/23/2015 None Full Exam - General 1994 Ears/Nose/Throat oral cavity/pharynx/larynx Overall: no masses 07/23/2015 None Full Exam - General 1994 Respiratory auscultation Overall: breath sounds clear bilaterally 07/23/2015 None Full Exam - General 1994 Respiratory respiratory effort/rhythm Overall: no retractions 07/23/2015 None Full Exam - General 1994 Respiratory respiratory effort/rhythm Overall: normal rate 07/23/2015 None Full Exam - General 1994 Cardiovascular auscultation of heart Overall: regular rate 07/23/2015 None Full Exam - General 1994 Cardiovascular auscultation of heart Overall: normal heart sounds 07/23/2015 None Full Exam - General 1994 Cardiovascular auscultation of heart Overall: no murmurs 07/23/2015 None Full Exam - General 1994 Abdomen abdominal exam Overall: no tenderness 07/23/2015 None Full Exam - General 1994 Abdomen abdominal exam Overall: normal bowel sounds 07/23/2015 None Full Exam - General 1994 Lymphatic neck nodes Overall: anterior cervical chain benign 07/23/2015 None Full Exam - General 1994 Lymphatic neck nodes Overall: posterior cervical chain benign 07/23/2015 None Full Exam - General 1994 Musculoskeletal gait and station Overall: normal gait 07/23/2015 None Full Exam - General 1994 Musculoskeletal gait and station Overall: normal station 07/23/2015 None Full Exam - General 1994 Integument inspection of skin Overall: no rash, lesions 07/23/2015 None Full Exam - General 1994 Neurologic cranial nerves Overall: crainial nerves 2 - 12 grossly intact 07/23/2015 None Full Exam - General 1994 Psychiatric orientation/consciousness Overall: oriented to person, place and time 07/23/2015 None Full Exam - General 1994 Constitutional general appearance Overall: well developed 01/16/2015 None Full Exam - General 1994 Constitutional general appearance Overall: in no acute distress 01/16/2015 None Full Exam - General 1994 Constitutional general appearance Overall: well nourished 01/16/2015 None Full Exam - General 1994 Psychiatric orientation/consciousness Overall: oriented to person, place and time 01/16/2015 None Full Exam - General 1994 Neurologic cranial nerves Overall: crainial nerves 2 - 12 grossly intact 01/16/2015 None Full Exam - General 1994 Integument inspection of skin Overall: no rash, lesions 01/16/2015 None Full Exam - General 1994 Musculoskeletal gait and station Overall: normal station 01/16/2015 None Full Exam - General 1994 Musculoskeletal gait and station Overall: normal gait 01/16/2015 None Full Exam - General 1994 Lymphatic neck nodes Overall: anterior cervical chain benign 01/16/2015 None Full Exam - General 1994 Lymphatic neck nodes Overall: posterior cervical chain benign 01/16/2015 None Full Exam - General 1994 Abdomen abdominal exam Overall: no tenderness 01/16/2015 None Full Exam - General 1994 Abdomen abdominal exam Overall: normal bowel sounds 01/16/2015 None Full Exam - General 1994 Cardiovascular auscultation of heart Overall: regular rate 01/16/2015 None Full Exam - General 1994 Cardiovascular auscultation of heart Overall: normal heart sounds 01/16/2015 None Full Exam - General 1994 Cardiovascular auscultation of heart Overall: no murmurs 01/16/2015 None Full Exam - General 1994 Respiratory auscultation Overall: breath sounds clear bilaterally 01/16/2015 None Full Exam - General 1994 Respiratory respiratory effort/rhythm Overall: normal rate 01/16/2015 None Full Exam - General 1994 Respiratory respiratory effort/rhythm Overall: no retractions 01/16/2015 None Full Exam - General 1994 Ears/Nose/Throat otoscopic exam Overall: tympanic membranes clear 01/16/2015 None Full Exam - General 1994 Ears/Nose/Throat otoscopic exam Overall: external auditory canals clear 01/16/2015 None Full Exam - General 1994 Ears/Nose/Throat oral cavity/pharynx/larynx Overall: oropharyngeal mucosa clear 01/16/2015 None Full Exam - General 1994 Ears/Nose/Throat oral cavity/pharynx/larynx Overall: no masses 01/16/2015 None Full Exam - General 1994 Ears/Nose/Throat oral cavity/pharynx/larynx Overall: oral mucosa clear 01/16/2015 None Full Exam - General 1994 Eyes conjunctiva/eyelids Overall: conjunctiva clear 01/16/2015 None Full Exam - General 1994 Eyes conjunctiva/eyelids Overall: eyelids normal 01/16/2015 None Full Exam - General 1994 Eyes conjunctiva/eyelids Overall: cornea clear 01/16/2015 None Full Exam - General 1994 Eyes pupils and irises Overall: pupils equal, round, reactive to light and accomodation 01/16/2015 None Procedures Procedure Codes Date PPPS, SUBSEQ VISIT CPT- 4: G0439 05/30/2018 ADMIN PNEUMOCOCCAL V ACCINE SNOMED CT: 49585731 CPT-4: G0009 05/30/2018 PNEUMOCOCCAL VACC [address]: 24240572 CPT-4: 43775 05/30/2018 Vital Signs Date Vital 08/31/2018 Blood Pressure 1: 122/88 Code: 8480-6 BMI: 37.8 Code: 75875-9 Heart Rate 1: 74 bpm Height: 5'4" SpO2: 97% Weight: 220 lbs 05/30/2018 Blood Pressure 1: 132/70 Code: 8480-6 BMI: 37.6 Code: 56332-9 Heart Rate 1: 64 bpm Height: 5'4" SpO2: 96% Weight: 219 lbs 04/20/2017 Blood Pressure 1: 122/84 Code: 8480-6 BMI: 36.7 Code: 73497-0 Heart Rate 1: 75 bpm Height: 5'4" SpO2: 95% Weight: 214 lbs 03/10/2016 Blood Pressure 1: 120/86 Code: 8480-6 BMI: 36.6 Code: 73838-4 Heart Rate 1: 70 bpm Height: 5'4" SpO2: 96% Weight: 213 lbs 09/21/2015 Blood Pressure 1: 128/82 Code: 8480-6 BMI: 36.0 Code: 15942-7 Heart Rate 1: 74 bpm Height: 5'4" SpO2: 97% Weight: 210 lbs 07/23/2015 Blood Pressure 1: 120/80 Code: 8480-6 BMI: 36.7 Code: 76014-8 Heart Rate 1: 73 bpm Height: 5'4" SpO2: 96% Weight: 214 lbs 01/16/2015 Blood Pressure 1: 130/84 Code: 8480-6 BMI: 37.4 Code: 48332-4 Heart Rate 1: 60 bpm Height: 5'4" Weight: 218 lbs Functional Status No Functional Status data History of Present Illness Symptom Name Status Resu lt Effective Date Notes Quality constant 08/31/2018 None Onset and Resolution s udden in onset 08/31/2018 None Onset of Symptom 1 wee ks ago 08/31/2018 None Quality constant 08/31/2018 None Onset and Resolution s udden in onset 08/31/2018 None Onset of Symptom 1 wee ks ago 08/31/2018 None Limitation on Activities does not limit activities 08/31/2018 None Frequency of Episodes increasing 08/31/2018 None Triggers no known asso ciated factors 08/31/2018 None Pertinent Findings jennifer dder pain 08/31/2018 None Pertinent Findings Den ies fever 08/31/2018 None Pertinent Findings Den ies pelvic pain 08/31/2018 None Pertinent Findings Den ies vomiting 08/31/2018 None Annual Medicare Wellness Exam Alcohol Use drinks 1 days per week 05/30/2018 None Annual Medicare Wellness Exam Aspirin Use no 05/30/2018 None Annual Medicare Wellness Exam Blood Glucose (self reported) desireable (below 100) 05/30/2018 None Annual Medicare Wellness Exam Blood Pressure (self reported) diagnosed with hypertension 05/30/20 18 None Annual Medicare Wellness Exam Choles terol (self reported) diagnosed with elevated cholesterol 05/30/2018 None Annual Medicare Wellness Exam Depres sarita (last 6 months) almost never 05/30/2018 None Annual Medicare Wellness Exam Depres sarita or Hopelessness almost never 05/30/2018 None Annual Medicare Wellness Exam Descri be Your Health excellent 05/30/2018 Non e Annual Medicare Wellness Exam Exerci se Habits exercises _ days per week 05/30/2018 None Annual Medicare Wellness Exam Handli ng Stress usually [place] effectively 05/30/2018 None Annual Medicare Wellness Exam Hemagl obin A-1C (self reported) don't know 05/30/2018 No ne Annual Medicare Wellness Exam Hours of Sleep 7-8 05/30/2018 None Annual Medicare Wellness Exam Intera ction with Friends yes 05/30/2018 None Annual Medicare Wellness Exam Intere sts & Pleasure almost all of the time 05/30/2018 None Annual Medicare Wellness Exam Life S atisfaction very satisfied 05/30/2018 None Annual Medicare Wellness Exam Motor Vehicle Safety always fastens seat belt: y 05/30/20 18 None Annual Medicare Wellness Exam Smokin g and Tobacco Use non smoker 05/30/2018 No ne Annual Medicare Wellness Exam Nutrition servings of vegetables / fruit per day: 5-6 05/30/2018 None Annual Medicare Wellness Exam Nutrition servings of high fiber / whole grain per day: 4 05/30/2018 None Annual Medicare Wellness Exam Nutrition servings of fried food / high fat foods per day: 0-1 05/30/2018 None Annual Medicare Wellness Exam Social & Emotional Support always 05/30/2018 None Annual Medicare Wellness Exam Stress almost never 05/30/2018 None Annual Medicare Wellness Exam Sun Exposure protects skin when outdoors: y 05/30/2018 None hypertension Quality chr onic 04/20/2017 None hypertension Onset and Resolution ongoing 04/20/2017 None hypertension Onset of Symptom during adulthood 04/20/2017 None hypertension Severity mi ld 04/20/2017 None hypertension Frequency of Episodes unchanged 04/20/2017 None hypertension Significant Medical Condition s cardiac disease 04/20/2017 dad from [place] age 49, brother also with heart attack hypertension Triggers no known associated factors 04/20/2017 None hypertension Alleviating Factors medication 04/20/2017 None hypertension Pertinent Findings Denies dizziness 04/20/2017 None hypertension Pertinent Findings Denies dyspnea 04/20/2017 None hypertension Pertinent Findings Denies edema 04/20/2017 None hypertension Pertinent Findings Denies anxiety 04/20/2017 None hypertension Pertinent Findings Denies decreased energy 04/20/2017 None hypertension Quality chr onic 03/10/2016 None hypertension Onset and Resolution ongoing 03/10/2016 None hypertension Onset of Symptom during adulthood 03/10/2016 None hypertension Severity mi ld 03/10/2016 None hypertension Frequency of Episodes unchanged 03/10/2016 None hypertension Significant Medical Condition s cardiac disease 03/10/2016 dad from [place] age 49, brother also with heart attack hypertension Triggers no known associated factors 03/10/2016 None hypertension Alleviating Factors medication 03/10/2016 None hypertension Pertinent Findings Denies dizziness 03/10/2016 None hypertension Pertinent Findings Denies dyspnea 03/10/2016 None hypertension Pertinent Findings Denies edema 03/10/2016 None weight loss Quality inte rmittent 09/21/2015 None weight loss Onset of Symptom 1 months ago 09/21/2015 None weight loss Pertinent Findings Denies binge eating 09/21/2015 None weight loss Pertinent Findings Denies nausea 09/21/2015 None weight loss Weight Status has lost _ pounds in _weeks 09/21/2015 None weight loss Frequency of Episodes decreasing 09/21/2015 None weight loss Diet decreas ed intake 09/21/2015 None weight loss Triggers tony nge in diet 09/21/2015 None weight loss Triggers int entional weight loss 09/21/2015 None weight loss Alleviating Factors exercise 09/21/2015 None weight loss Alleviating Factors change in dietary habits 09/21/2015 None hypertension Quality chr onic 07/23/2015 None hypertension Onset and Resolution ongoing 07/23/2015 None hypertension Onset of Symptom during adulthood 07/23/2015 None hypertension Severity mi ld 07/23/2015 None hypertension Frequency of Episodes unchanged 07/23/2015 None hypertension Significant Medical Condition s cardiac disease 07/23/2015 dad from [place] age 49, brother also with heart attack hypertension Triggers no known associated factors 07/23/2015 None hypertension Alleviating Factors medication 07/23/2015 None hypertension Pertinent Findings Denies dizziness 07/23/2015 None hypertension Pertinent Findings Denies dyspnea 07/23/2015 None hypertension Pertinent Findings Denies edema 07/23/2015 None hypertension Onset and Resolution ongoing 01/16/2015 None hypertension Significant Medical Condition s cardiac disease 01/16/2015 dad from [place] age 49, brother also with heart attack hypertension Pertinent Findings Denies dizziness 01/16/2015 None hypertension Pertinent Findings Denies dyspnea 01/16/2015 None hypertension Pertinent Findings Denies edema 01/16/2015 None hypertension Quality chr onic 01/16/2015 None hypertension Onset of Symptom during adulthood 01/16/2015 None hypertension Triggers no known associated factors 01/16/2015 None hypertension Alleviating Factors medication 01/16/2015 None hypertension Severity mi ld 01/16/2015 None hypertension Frequency of Episodes unchanged 01/16/2015 None Advance Directives No Advance Directive data Encounters Encounter Performer Loca tion Codes Date ([id number]) 01960 EST. P ATIENT, LEVEL III Diagnosis: Urinary tract infection, site not specified[ICD10: N39.0] Jaycee Graves MD, [facility] CPT-4: 63294 08/31/2018 ([id number]) 26664 EST. P ATIENT, LEVEL IV Diagnosis: Essential (primary) hypertension[ICD10: I10] Diagnosis: Mixed hyperlipidemia[ICD10: E78.2] Diagnosis: Vitamin D deficiency, unspecified[ICD10: E55.9] Diagnosis: Impaired fasting glucose[ICD10: R73.01] Jaycee Graves MD, [facility] CPT-4: 97116 04/20/2017 ([id number]) 71507 EST. P ATIENT, LEVEL IV Diagnosis: Essential (primary) hypertension[ICD10: I10] Diagnosis: Mixed hyperlipidemia[ICD10: E78.2] Diagnosis: Impaired fasting glucose[ICD10: R73.01] Diagnosis: Vitamin D deficiency, unspecified[ICD10: E55.9] Jaycee Graves MD, [facility] CPT-4: 84111 03/10/2016 ([id number]) 75926 EST. P ATIENT, LEVEL IV Diagnosis: Essential (primary) hypertension[ICD10: I10] Diagnosis: Mixed hyperlipidemia[ICD10: E78.2] Diagnosis: Vitamin D deficiency, unspecified[ICD10: E55.9] Diagnosis: Impaired fasting glucose[ICD10: R73.01] Diagnosis: Body mass index (BMI) 36.0-36.9, adult[ICD10: Z68.36] Jaycee Graves MD, [facility] CPT-4: 82278 09/21/2015 ([id number]) 84400 EST. P ATIENT, LEVEL IV Diagnosis: Essential (primary) hypertension[ICD10: I10] Diagnosis: Mixed hyperlipidemia[ICD10: E78.2] Diagnosis: Other abnormal glucose[ICD10: R73.09] Diagnosis: Morbid (severe) obesity due to excess calories[ICD10: E66.01] Nkechi Graves MD, [facility] CPT-4: 66006 07/23/2015 ([id number]) OFFICE [facility] - LEVEL 3 Diagnosis: ESSENTIAL HYPERTENSION[ICD9: 401.9] Diagnosis: Hyperlipidemia[ICD9: 272.4] Diagnosis: Elevated blood sugar[ICD9: 790.29] Diagnosis: VITAMIN D DEFICIENCY[ICD9: 268.9] Jaycee Graves MD, [facility] CPT- 4: 45782 01/16/2015 Plan of Care Planned Activity Notes C odes Status Date Visit Plan: Urinary Tract Infection -discussed natural and expected course of this diagnosis and to alert me if symptoms do not follow expected course, or if any worse. UA positive for infection today in the office- plan to send for culture and will call patient with results. RX sent to patient's pharmacy. Avoid tub baths, restrictive underwear, etc. Recommend patient start on probiotic while taking the antibiotic to prevent diarrhea. Patient verbalized understanding of plan. 08/31/2018 Appointment: Jaycee Trevino WPtel: [phone] [place] (10 min) Simple 08/31/2018 Patient Education: Patient Medication Summary Completed 08/31/2018 Care Plan: Urine Culture Pending 08/31/2018 Visit Plan: Medicare Exam - today w e discussed the patients past history, immunizations, preventative exams/evaluations - colonoscopy, fecal occult blood testing, routine labs for renal function, glucose, cholesterol, osteoporosis evaluations, cardiovascular testing and cancer screenings. We have also discussed mental health and the signs/symptoms of depression. The patient was advised of home safety evaluations and the need to make sure that as the aging process continues, we need to be aware of different ways to make the home a safer place to reside. The patient has also been counseled that exercise is necessary - and of utmost importance as we age to help decrease fall risk and to maintain independece in the home. Today we discussed the need for the patient to create paperwork for Advanced directives as well as for the patient to provide this office with a copy of her DOPA paperwork for health care surrogate. 05/30/2018 Visit Plan: Medicare Exam - today w e discussed the patients past history, immunizations, preventative exams/evaluations - colonoscopy, fecal occult blood testing, routine labs for renal function, glucose, cholesterol, osteoporosis evaluations, cardiovascular testing and cancer screenings. We have also discussed mental health and the signs/symptoms of depression. The patient was advised of home safety evaluations and the need to make sure that as the aging process continues, we need to be aware of different ways to make the home a safer place to reside. The patient has also been counseled that exercise is necessary - and of utmost importance as we age to help decrease fall risk and to maintain independece in the home. Today we discussed the need for the patient to create paperwork for Advanced directives as well as for the patient to provide this office with a copy of her DOPA paperwork for health care surrogate. 05/30/2018 Appointment: Selene Rochetel: [phone] [facility] [facility] - Annual Wellness Visit 05/30/2018 Patient Education: Patient Medication Summary Completed 05/30/2018 Visit Plan: Hypertension - well con trolled - continue with current medications, continue with no added salt diet. Pt has been encouraged to exercise daily. The pt has been advised to call the office if there are any acute concerns about change in blood pressure readings at home. Hyperlipidemia - pt has been counseled about appropriate diet, exercise, and need for low fat food choices. I have discussed the need for the patient to take medications as prescribed. If the patient has negative side effects from the medication, they are to CALL the office and not abruptly discontinue the medication without discussion with a practitioner in the office. We will check labs in 3-6 months for follow up on the patient's chronic medical problem and to assure normal liver response to medications. Vitamin D deficiency-check labs Elevated glucose- check Hgb A1c 04/20/2017 Appointment: Jaycee Trevino WPtel: [phone] (30 min) Complex 04/20/2017 Patient Education: Patient Medication Summary Completed 04/20/2017 Patient Education: Obesity Completed 04/20/2017 Patient Education: Hypertension Completed 04/20/2017 Care Plan: Comp Metabolic Pending 04/20/2017 Care Plan: Cbc With Differential Pending 04/20/2017 Care Plan: %Hba1C LOIN C : 79987-8 Pending 04/20/2017 Care Plan: Tsh Pending 04/20/2017 Care Plan: Lipid Pending 04/20/2017 Care Plan: Vitamin D 25 Oh Pending 04/20/2017 Appointment: Lab Draw 08/17/2016 Appointment: Selene Roche WPtel: [facility] [facility] - Welcome to Medicare visit 07/28/2016 Visit Plan: Hypertension - well con trolled - continue with current medications, continue with no added salt diet. Pt has been encouraged to exercise daily. The pt has been advised to call the office if there are any acute concerns about change in blood pressure readings at home. Hyperlipidemia - pt has been counseled about appropriate diet, exercise, and need for low fat food choices. I have discussed the need for the patient to take medications as prescribed. If the patient has negative side effects from the medication, they are to CALL the office and not abruptly discontinue the medication without discussion with a practitioner in the office. We will check labs in 3-6 months for follow up on the patient's chronic medical problem and to assure normal liver response to medications. Vitamin D deficiency-check labs Elevated glucose- check Hgb A1c 03/10/2016 Patient Education: Patient Medication Summary Completed 03/10/2016 Patient Education: Obesity Completed 03/10/2016 Appointment: Nkechi Graves WPtel: [facility] (30 min) Complex 09/23/2015 Visit Plan: Hypertension - well con trolled - continue with current medications, continue with no added salt diet. Pt has been encouraged to exercise daily. The pt has been advised to call the office if there are any acute concerns about change in blood pressure readings at home. Hyperlipidemia - pt has been counseled about appropriate diet, exercise, and need for low fat food choices. I have discussed the need for the patient to take medications as prescribed. If the patient has negative side effects from the medication, they are to CALL the office and not abruptly discontinue the medication without discussion with a practitioner in the office. We will check labs in 3-6 months for follow up on the patient's chronic medical problem and to assure normal liver response to medications. Obesity - chronic issue with this patient. The pt has been counseled about diet changes, calorie restriction, and need to exercise. Pt will RTC in one month for weight check. Vitamin D deficiency-check labs Elevated glucose-check Hgb A1C 09/21/2015 Appointment: (30 min) Complex 09/21/2015 Patient Education: Patient Medication Summary Completed 09/21/2015 Patient Education: Obesity Completed 09/21/2015 Patient Education: Hypertension Completed 09/21/2015 Care Plan: BMI Above normal followup ANGELA F-MGMT EDUC & TRAIN 1 PT Ordered 09/21/2015 Visit Plan: Hypertension - well con trolled - continue with current medications, continue with no added salt diet. Pt has been encouraged to exercise daily. The pt has been advised to call the office if there are any acute concerns about change in blood pressure readings at home. Hyperlipidemia - pt has been counseled about appropriate diet, exercise, and need for low fat food choices. I have discussed the need for the patient to take medications as prescribed. If the patient has negative side effects from the medication, they are to CALL the office and not abruptly discontinue the medication without discussion with a practitioner in the office. We will check labs in 3-6 months for follow up on the patient's chronic medical problem and to assure normal liver response to medications. Obesity - chronic issue with this patient. The pt has been counseled about diet changes, calorie restriction, and need to exercise. Pt will RTC in one month for weight check. 07/23/2015 Appointment: [facility] Graves [facility]el[phone] [facility] [place] (15 min) Moderate 07/23/2015 Appointment: Nke[facility] Graves [facility]Ptel: [phone] [facility] [place] (30 min) Complex 07/23/2015 Patient Education: Patient Medication Summary Completed 07/23/2015 Patient Education: Hypertension Completed 07/23/2015 Visit Plan: Hypertension - well con kevincaydened - continue with current medications, continue with no added salt diet. Pt has been encouraged to exercise daily. The pt has been advised to call the office if there are any acute concerns about change in blood pressure readings at home. Hyperlipidemia - pt has been counseled about appropriate diet, exercise, and need for low fat food choices. I have discussed the need for the patient to take medications as prescribed. If the patient has negative side effects from the medication, they are to CALL the office and not abruptly discontinue the medication without discussion with a practitioner in the office. We will check labs in 3-6 months for follow up on the patient's chronic medical problem and to assure normal liver response to medications. Elevated blood sugars-check Hgb A1C Vitamin D deficiency-check vitamin D level 01/16/2015 Appointment: (S) New Patient 01/16/2015 Patient Education: Patient Medication Summary Completed 01/16/2015 Patient Education: Hypertension Completed 01/16/2015 Instructions Comment . Medicare Exam - to day we discussed the patients past history, immunizations, preventative exams/evaluations - colonoscopy, fecal occult blood testing, routine labs for renal function, glucose, cholesterol, osteoporosis evaluations, cardiovascular testing and cancer screenings. We have also discussed mental health and the signs/symptoms of depression. The patient was advised of home safety evaluations and the need to make sure that as the aging process continues, we need to be aware of different ways to make the home a safer place to reside. The patient has also been counseled that exercise is necessary - and of utmost importance as we age to help decrease fall risk and to maintain independece in the home. Today we discussed the need for the patient to create paperwork for Advanced directives as well as for the patient to provide this office with a copy of her DOPA paperwork for health care surrogate. . Medicare Exam - to day we discussed the patients past history, immunizations, preventative exams/evaluations - colonoscopy, fecal occult blood testing, routine labs for renal function, glucose, cholesterol, osteoporosis evaluations, cardiovascular testing and cancer screenings. We have also discussed mental health and the signs/symptoms of depression. The patient was advised of home safety evaluations and the need to make sure that as the aging process continues, we need to be aware of different ways to make the home a safer place to reside. The patient has also been counseled that exercise is necessary - and of utmost importance as we age to help decrease fall risk and to maintain independece in the home. Today we discussed the need for the patient to create paperwork for Advanced directives as well as for the patient to provide this office with a copy of her DOPA paperwork for health care surrogate. STOP BY IN 1 MONTH T O CHECK WEIGHT REGULAR APPOINTMENT IN 6 MONTHS . Hypertension - well controlled - chadd nue with current medications, continue with no added salt diet. Pt has been encouraged to exercise daily. The pt has been advised to call the office if there are any acute concerns about change in blood pressure readings at home. Hyperlipidemia - pt has been counseled about appropriate diet, exercise, and need for low fat food choices. I have discussed the need for the patient to take medications as prescribed. If the patient has negative side effects from the medication, they are to CALL the office and not abruptly discontinue the medication without discussion with a practitioner in the office. We will check labs in 3-6 months for follow up on the patient's chronic medical problem and to assure normal liver response to medications. Obesity - chronic issue with this patient. The pt has been counseled about diet changes, calorie restriction, and need to exercise. Pt will RTC in one month for weight check. Vitamin D deficiency-check labs Elevated glucose-check Hgb A1C . Hypertension - wel l controlled - continue with current medications, continue with no added salt diet. Pt has been encouraged to exercise daily. The pt has been advised to call the office if there are any acute concerns about change in blood pressure readings at home. Hyperlipidemia - pt has been counseled about appropriate diet, exercise, and need for low fat food choices. I have discussed the need for the patient to take medications as prescribed. If the patient has negative side effects from the medication, they are to CALL the office and not abruptly discontinue the medication without discussion with a practitioner in the office. We will check labs in 3-6 months for follow up on the patient's chronic medical problem and to assure normal liver response to medications. Vitamin D deficiency-check labs Elevated glucose-check Hgb A1c CULTURE URINE [facility] . Urinary Tract Infection-discussed natu ral and expected course of this diagnosis and to alert me if symptoms do not follow expected course, or if any worse. UA positive for infection today in the office-plan to send for culture and will call patient with results. RX sent to patient's pharmacy. Avoid tub baths, restrictive underwear, etc. Recommend patient start on probiotic while taking the antibiotic to prevent diarrhea. Patient verbalized understanding of plan. . Hypertension - wel l controlled - continue with current medications, continue with no added salt diet. Pt has been encouraged to exercise daily. The pt has been advised to call the office if there are any acute concerns about change in blood pressure readings at home. Hyperlipidemia - pt has been counseled about appropriate diet, exercise, and need for low fat food choices. I have discussed the need for the patient to take medications as prescribed. If the patient has negative side effects from the medication, they are to CALL the office and not abruptly discontinue the medication without discussion with a practitioner in the office. We will check labs in 3-6 months for follow up on the patient's chronic medical problem and to assure normal liver response to medications. Obesity - chronic issue with this patient. The pt has been counseled about diet changes, calorie restriction, and need to exercise. Pt will RTC in one month for weight check. Plan: ([id number]) SCREEN INGMAMMOGRAPHYDIGITAL . Hypertension - well controlled - chadd nue with current medications, continue with no added salt diet. Pt has been encouraged to exercise daily. The pt has been advised to call the office if there are any acute concerns about change in blood pressure readings at home. Hyperlipidemia - pt has been counseled about appropriate diet, exercise, and need for low fat food choices. I have discussed the need for the patient to take medications as prescribed. If the patient has negative side effects from the medication, they are to CALL the office and not abruptly discontinue the medication without discussion with a practitioner in the office. We will check labs in 3-6 months for follow up on the patient's chronic medical problem and to assure normal liver response to medications. Elevated blood sugars-check Hgb A1C Vitamin D deficiency-check vitamin D level . Hypertension - wel l controlled - continue with current medications, continue with no added salt diet. Pt has been encouraged to exercise daily. The pt has been advised to call the office if there are any acute concerns about change in blood pressure readings at home. Hyperlipidemia - pt has been counseled about appropriate diet, exercise, and need for low fat food choices. I have discussed the need for the patient to take medications as prescribed. If the patient has negative side effects from the medication, they are to CALL the office and not abruptly discontinue the medication without discussion with a practitioner in the office. We will check labs in 3-6 months for follow up on the patient's chronic medical problem and to assure normal liver response to medications. Vitamin D deficiency-check labs Elevated glucose-check Hgb A1c
--- OUTSIDE RECORDS SUMMARY | 2019-12-09 09:53 | XMS REPORT | CCD ---
Author Author Leigh Ann Trevino Organization Nkechi Graves MD, [facility] Address [address] [place] [address] Phone Care Team Providers Care It Senior Analyst Name Role Phone PP Unavailable CCM Unavailable Summary Purpose Interface Exchange Insurance Providers Payer name Policy type / Coverage type Covered republican ID Effective Begin Date Effective End Date WPS Medicare Part B Medicare Part B [id number] 2015 Unknown [employer] Medicare Part B [id number] 2015 Unknown Family history Brother Diagnosis Age At Onset Heart Attack Unknown Mother Diagnosis Age At Onset Dementia Unknown Father Diagnosis Age At Onset Heart Attack Unknown Social History Social History Element Codes Description Effective Dates Marital status Unknown M amina [place]anton 01/16/2015 Number of children Unknown 2 01/16/2015 Employment Unknown Retir ed 01/16/[address]: 912925425 Never smoker 01/16/[address]: 952169 Currently drinks alcohol 01/16/2015 Allergies, Adverse Reactions, [...] Date Stop Date Sta tus Fill Instructions propranolol 60 mg ta blet RxNorm: 638636 1 Tablet(s) PO BID TA KE ONE TABLET BY MOUTH TWICE A DAY 08/31/2018 11/23/2019 Active hydrochlorothiazide 12.5 mg capsule RxNorm: 383563 TAKE ONE CAPSULE BY M OUTH DAILY 08/31/2018 05/27/2019 Ac tive irbesartan 150 mg ta blet RxNorm: 725313 TAKE ONE TABLET BY MO UTH DAILY 08/31/2018 05/27/2019 Ac tive Keflex 500 mg capsule RxNorm: 677933 1 Capsule(s) PO TID 08/31/2018 09/06/2018 Active irbesartan 150 mg ta blet RxNorm: 792987 1 Tablet(s) PO daily TAKE ONE TABLET BY MOUTH DAILY 08/31/2018 08/30/2018 Inactive hydrochlorothiazide 12.5 mg capsule RxNorm: 1 Capsule(s) PO daily TAKE ONE CAPSULE BY MOUTH DAILY 08/31/2018 08/30/2018 Inactive hydrochlorothiazide 12.5 mg capsule RxNorm: TAKE ONE CAPSULE BY M OUTH DAILY 08/16/2017 08/10/2018 In active irbesartan 150 mg ta blet RxNorm: 640345 TAKE ONE TABLET BY MO UTH DAILY 08/16/2017 08/10/2018 In active propranolol 60 mg ta blet RxNorm: 093180 1 Tablet(s) PO BID TA KE ONE TABLET BY MOUTH TWICE A DAY 04/20/2017 07/13/2018 Inactive propranolol 60 mg ta blet RxNorm: 075061 TAKE ONE TABLET BY MO UTH TWICE A DAY 04/18/2017 04/19/2017 In active irbesartan 150 mg ta blet RxNorm: 20000314 TAKE ONE TABLET BY MO [facility] DAILY 10/31/2016 07/27/2017 In active hydrochlorothiazide 12.5 mg capsule RxNorm: TAKE ONE CAPSULE BY [facility] DAILY 10/31/2016 07/27/2017 In active propranolol 60 mg ta blet RxNorm: 391120 TAKE ONE TABLET BY [facility] TWICE A DAY 10/26/2016 01/23/2017 In active Zithromax Z-Andres 250 mg tablet RxNorm: 940021 1 Tablet(s) PO UD 08/17/2016 04/17/2017 Inactive z pack as directed propranolol 60 mg ta blet RxNorm: 573753 1 Tablet(s) PO BID 04/19/2016 04/18/2016 Inactive propranolol 60 mg ta blet RxNorm: 455024 1 Tablet(s) PO BID 04/19/2016 08/16/2016 Inactive Contrave 8 mg-90 mg tablet,extended release RxNorm: 0522899 2 Tablet(s) PO BID 09/21/2015 03/09/2016 In active propranolol ER 120 m g capsule,24 hr,extended release RxNorm: 665381 1 Capsule(s) PO daily 07/23/2015 04/18/2016 Inactive irbesartan 150 mg ta blet RxNorm: 741128 1 Tablet(s) PO daily 07/23/2015 07/16/2016 Inactive hydrochlorothiazide 12.5 mg capsule RxNorm: 1 Capsule(s) PO daily 07/23/2015 07/16/2016 In active PLEASE GIVE PT 90 ON ALL MEDICINES Vitamin D3 2,000 uni t capsule RxNorm: 996608 1 Capsule(s) PO daily 07/23/2015 09/23/2015 Inactive Belviq 10 mg tablet RxNorm: 1193458 1 Tablet(s) PO BID 07/23/2015 09/20/2015 Inactive Vitamin D2 50,000 un it capsule RxNorm: 776111 1 Capsule(s) PO weekl y and 2000u daily of vit d 01/16/2015 04/15/2015 Inactive and take 2000 u daily of Vi t D as well Vitamin D2 50,000 un it capsule RxNorm: 907682 1 Capsule(s) PO weekly 01/16/2015 01/15/2015 Inactive and take 2000 u daily of Vit D as well propranolol ER 120 m g capsule,24 hr,extended release RxNorm: 156653 1 Capsule(s) PO daily 01/16/2015 07/14/2015 Inactive hydrochlorothiazide 12.5 mg capsule RxNorm: 1 Capsule(s) PO daily 01/16/2015 07/14/2015 In active PLEASE GIVE PT 90 ON ALL MEDICINES hydrochlorothiazide 12.5 mg capsule RxNorm: 1 Capsule(s) PO daily 01/16/2015 01/15/2015 In active propranolol ER 120 m g capsule,24 hr,extended release RxNorm: 656088 1 Capsule(s) PO daily 01/16/2015 01/15/2015 Inactive irbesartan 150 mg ta blet RxNorm: 695912 1 Tablet(s) PO daily 01/16/2015 07/14/2015 Inactive irbesartan 150 mg ta blet RxNorm: 404423 1 Tablet(s) PO daily 01/16/2015 01/15/2015 Inactive Vitamin D3 5,000 uni t tablet RxNorm: 761465 1 Tablet(s) PO daily No Start Date Active Zithromax Z-Andres 250 mg tablet RxNorm: 214409 1 Tablet(s) PO UD No Start Date 08/16/2016 Inactive z pack as directed irbesartan 150 mg ta blet RxNorm: 043260 1 Tablet(s) PO daily No Start Date 01/15/2015 Inactive Vitamin D3 2,000 uni t capsule RxNorm: 021305 1 Capsule(s) PO daily No Start Date 07/22/2015 Inactive propranolol ER 120 m g capsule,24 hr,extended release RxNorm: 595506 1 Capsule(s) PO daily No Start Date [...] abnormal findings ICD-10: Z00.01 ICD-9: V70.0 05/30/2018 Impaired fasting glucose ICD-10: R73 .01 ICD-9: 790.21 04/20/2017 Vitamin D deficiency, unspecified IC D-10: E55.9 ICD-9: 268.9 04/20/2017 Essential (primary) hypertension ICD -10: I10 ICD-9: 401.9 04/20/2017 Mixed hyperlipidemia ICD-10: E78.2 ICD-9: 272.4 04/20/2017 Body mass index (BMI) 36.0-36.9, adult ICD-10: Z68.36 ICD-9: V85.36 09/21/2015 Other abnormal glucose ICD-10: R73.0 9 ICD-9: 790.29 07/23/2015 Morbid (severe) obesity due to excess calories ICD-10: E66.01 ICD-9: 278.01 07/23/2015 Hyperlipidemia ICD-9: 272.4 01/16/2015 ESSENTIAL HYPERTENSION ICD-9: 401.9 01/16/2015 Elevated blood sugar ICD-9: 790.29 01/16/2015 VITAMIN D DEFICIENCY ICD-9: 268.9 01/16/2015 Reason For Visit Reason For Visit [...] 14.4 g/dl 04/20/2017 Cbc With Differential Ord2 Neut% 63.6 % 04/20/2017 Cbc With Differential Ord2 HCT 43.1 % 04/20/2017 Cbc With Differential Ord2 MCV 91.3 fl 04/20/2017 Cbc With Differential Ord2 Lymph% 27.5 % 04/20/2017 Cbc With Differential Ord2 MCH 30.5 pg 04/20/2017 Cbc With Differential Ord2 [place]% 7.2 % 04/20/2017 Cbc With Differential Ord2 MCHC 33.4 pg 04/20/2017 Cbc With Differential Ord2 Eos% 1.2 % 04/20/2017 Cbc With Differential Ord2 PLT 279 K/ul 04/20/2017 Cbc With Differential Ord2 Baso% 0.5 % 04/20/2017 Cbc With Differential Ord2 Neut ABS# 5.11 K/ul 04/20/2017 Cbc With Differential Ord2 RDW 13.4 % 04/20/2017 Cbc With Differential Ord2 Lymph ABS# 2.21 K/ul 04/20/2017 Cbc With Differential Ord2 [place] ABS# 0.6 K/ul 04/20/2017 Cbc With Differential Ord2 Eos ABS# 0.1 K/ul 04/20/2017 Cbc With Differential Ord2 Baso ABS# 0.0 K/ul 04/20/2017 %Hba1C Lqf131 % HbA1c 51764-4 5.9 % 04/20/2017 %Hba1C Vph455 Gluc Ave 123 mg/dL 04/20/2017 Vitamin D 25 Oh Tfv1151 VITAMIN D, 25 HYDROXY 53.49 ng/mL 04/20/2017 Comp Metabolic Cnz373 NA 139 mEq/L 04/20/2017 Comp Metabolic Nlo232 K 4.4 mEq/L 04/20/2017 Comp Metabolic Cbr785 CL 100 mEq/L 04/20/2017 Comp Metabolic Uox311 CO2 27.0 mEq/L 04/20/2017 Comp Metabolic Fyt327 AN ION GAP 16 04/20/2017 Comp Metabolic Guk723 GL UCOSE 113 mg/dL 04/20/2017 Comp Metabolic Pya878 Cr eat 0.8 mg/dL 04/20/2017 Comp Metabolic Lqe422 eG FR 77 ml/min/1.73m2 04/20 Comp Metabolic Hwv451 BUN 17 mg/dL 04/20/2017 Comp Metabolic She521 B/ C Ratio 21.5 Ratio 04/20/2017 Comp Metabolic Ina036 CA LCIUM 9.9 mg/dL 04/20/2017 Comp Metabolic Ftr210 AL K PHOS 69 U/L 04/20/2017 Comp Metabolic Fmn782 T(SGOT) 16 U/L 04/20/2017 Comp Metabolic Quo650 AL T(SGPT) 13 U/L 04/20/2017 Comp Metabolic Wkx249 BI LI T 0.7 mg/dL 04/20/2017 Comp Metabolic Yho081 AL BUMIN 4.6 g/dL 04/20/2017 Comp Metabolic Spm363 TP RO 7.1 g/dL 04/20/2017 Comp Metabolic Ore403 GL OB 2.6 g/dL 04/20/2017 Comp Metabolic Uew428 A/ G Ratio 1.8 Ratio 04/20/2017 Comp Metabolic Vlr377 Os mo 280 mOsmo 04/20/2017 Quick Strep Krp8836 Quic k Strep Negative 08/17/2016 Influenza A+B Ejh423 Inf anastacia A+B Negative 08/17/2016 Vitamin D 25 Oh Swf1477 VITAMIN D, 25 HYDROXY 43.92 ng/mL 03/11/2016 %Hba1C Ntx471 % HbA1c 70160-6 5.9 % 03/10/2016 %Hba1C Ngp708 Gluc Ave 123 mg/dL 03/10/2016 Comp Metabolic Pnh640 NA 136 mEq/L 03/10/2016 Comp Metabolic Sti293 K 4.1 mEq/L 03/10/2016 Comp Metabolic Daq066 CL 100 mEq/L 03/10/2016 Comp Metabolic Wpn056 CO2 29.0 mEq/L 03/10/2016 Comp Metabolic Aox700 AN ION GAP 11 03/10/2016 Comp Metabolic Frt358 GL UCOSE 110 mg/dL 03/10/2016 Comp Metabolic Mpy698 Cr eat 0.8 mg/dL 03/10/2016 Comp Metabolic Icz616 eG FR 74 ml/min/1.73m2 03/10 Comp Metabolic Yio048 BUN 26 mg/dL 03/10/2016 Comp Metabolic Dif593 B/ C Ratio 31.7 Ratio 03/10/2016 Comp Metabolic Ott701 CA LCIUM 9.7 mg/dL 03/10/2016 Comp Metabolic Otn730 AL K PHOS 62 U/L 03/10/2016 Comp Metabolic Kvs124 T(SGOT) 17 U/L 03/10/2016 Comp Metabolic Uyw213 AL T(SGPT) 15 U/L 03/10/2016 Comp Metabolic Kbp649 BI LI T 0.6 mg/dL 03/10/2016 Comp Metabolic Fxv019 AL BUMIN 4.4 g/dL 03/10/2016 Comp Metabolic Yfr578 TP RO 7.0 g/dL 03/10/2016 Comp Metabolic Tfk865 GL OB 2.6 g/dL 03/10/2016 Comp Metabolic Sgv469 A/ G Ratio 1.7 Ratio 03/10/2016 Comp Metabolic Nwb168 Os mo 277 mOsmo 03/10/2016 Lipid Ord30 [...] 14.4 g/dl 03/10/2016 Cbc With Differential Ord2 Neut% 59.3 % 03/10/2016 Cbc With Differential Ord2 HCT 44.2 % 03/10/2016 Cbc With Differential Ord2 MCV 93.2 fl 03/10/2016 Cbc With Differential Ord2 Lymph% 31.0 % 03/10/2016 Cbc With Differential Ord2 [place]son% 7.9 % 03/10/2016 Cbc With Differential Ord2 MCH 30.4 pg 03/10/2016 Cbc With Differential Ord2 MCHC 32.6 pg 03/10/2016 Cbc With Differential Ord2 Eos% 1.4 % 03/10/2016 Cbc With Differential Ord2 PLT 198 K/ul 03/10/2016 Cbc With Differential Ord2 Baso% 0.4 % 03/10/2016 Cbc With Differential Ord2 RDW 13.5 % 03/10/2016 Cbc With Differential Ord2 Neut ABS# 4.68 K/ul 03/10/2016 Cbc With Differential Ord2 Lymph ABS# 2.44 K/ul 03/10/2016 Cbc With Differential Ord2 [place] ABS# 0.6 K/ul 03/10/2016 Cbc With Differential Ord2 Eos ABS# 0.1 K/ul 03/10/2016 Cbc With Differential Ord2 Baso ABS# 0.0 K/ul 03/10/2016 Lipid Ord30 CHOL 196 mg/dL 09/21/2015 Lipid Ord30 HDL 34.0 mg/dl 09/21/2015 Lipid Ord30 TRIG 190 mg/dL 09/21/2015 Lipid Ord30 LDL 124 mg/dL 09/21/2015 Lipid Ord30 C/HDL 5.8 Ratio 09/21/2015 %Hba1C Tiq481 % HbA1c 73899-3 5.8 % 09/21/2015 %Hba1C Gfr532 Gluc Ave 120 mg/dL 09/21/2015 Vitamin D 25 Oh Txq6451 VITAMIN D, 25 HYDROXY 32.62 ng/mL 09/21/2015 Comp Metabolic Zit335 NA 139 mEq/L 09/21/2015 Comp Metabolic Yyx486 K 4.0 mEq/L 09/21/2015 Comp Metabolic Wlg712 CL 101 mEq/L 09/21/2015 Comp Metabolic Dho190 CO2 30.0 mEq/L 09/21/2015 Comp Metabolic Jsh175 AN ION GAP 12 09/21/2015 Comp Metabolic Ypq101 GL UCOSE 98 mg/dL 09/21/2015 Comp Metabolic Rzx630 Cr eat 0.8 mg/dL 09/21/2015 Comp Metabolic Bqr245 eG FR 81 ml/min/1.73m2 09/20 Comp Metabolic Juv588 BUN 14 mg/dL 09/21/2015 Comp Metabolic Pbr084 B/ C Ratio 18.4 Ratio 09/21/2015 Comp Metabolic Mvw887 CA LCIUM 9.5 mg/dL 09/21/2015 Comp Metabolic Riz805 AL K PHOS 57 U/L 09/21/2015 Comp Metabolic Dmc988 T(SGOT) 12 U/L 09/21/2015 Comp Metabolic Qvp595 AL T(SGPT) 10 U/L 09/21/2015 Comp Metabolic Mhn969 BI LI T 0.7 mg/dL 09/21/2015 Comp Metabolic Tnk691 AL BUMIN 4.2 g/dL 09/21/2015 Comp Metabolic Aib255 TP RO 6.7 g/dL 09/21/2015 Comp Metabolic Rtf033 GL OB 2.5 g/dL 09/21/2015 Comp Metabolic Cen637 A/ G Ratio 1.7 Ratio 09/21/2015 Comp Metabolic Qrb838 Os mo 278 mOsmo 09/21/2015 Tsh Ord6 [...] 30.2 pg 09/21/2015 Cbc With Differential Ord2 [place]son% 8.7 % 09/21/2015 Cbc With Differential Ord2 Eos% 1.8 % 09/21/2015 Cbc With Differential Ord2 MCHC 32.4 pg 09/21/2015 Cbc With Differential Ord2 Baso% 0.5 % 09/21/2015 Cbc With Differential Ord2 PLT 248 K/ul 09/21/2015 Cbc With Differential Ord2 RDW 13.4 % 09/21/2015 Cbc With Differential Ord2 Neut ABS# 4.63 K/ul 09/21/2015 Cbc With Differential Ord2 Lymph ABS# 2.33 K/ul 09/21/2015 Cbc With Differential Ord2 [place] ABS# 0.7 K/ul 09/21/2015 Cbc With Differential Ord2 Eos ABS# 0.1 K/ul 09/21/2015 Cbc With Differential Ord2 Baso ABS# 0.0 K/ul 09/21/2015 Cbc With Differential Ord2 New Analyzer Notice Please note new ref ranges s tarting 07-22-2015 due to implemntation of new five part differential hematolgy analyzer. 09/21/2015 Tsh Ord6 hTSH II 1.39 uIU/mL 01/16/2015 Comp Metabolic Cbu248 NA 137 mEq/L 01/16/2015 Comp Metabolic Ppk985 K 4.3 mEq/L 01/16/2015 Comp Metabolic Wmv710 CL 101 mEq/L 01/16/2015 Comp Metabolic Yzx640 CO2 30.0 mEq/L 01/16/2015 Comp Metabolic Wei477 AN ION GAP 10 01/16/2015 Comp Metabolic Ojl637 GL UCOSE 111 mg/dL 01/16/2015 Comp Metabolic Uxy974 Cr eat 0.8 mg/dL 01/16/2015 Comp Metabolic Jhy690 eG FR 78 ml/min/1.73m2 01/16 Comp Metabolic Pop178 BUN 14 mg/dL 01/16/2015 Comp Metabolic Alf704 B/ C Ratio 17.7 Ratio 01/16/2015 Comp Metabolic Iui213 CA LCIUM 9.8 mg/dL 01/16/2015 Comp Metabolic Qam099 AL K PHOS 76 U/L 01/16/2015 Comp Metabolic Blv438 T(SGOT) 12 U/L 01/16/2015 Comp Metabolic Dut128 AL T(SGPT) 11 U/L 01/16/2015 Comp Metabolic Epn538 BI LI T 0.7 mg/dL 01/16/2015 Comp Metabolic Krv104 AL BUMIN 4.3 g/dL 01/16/2015 Comp Metabolic Fcl040 TP RO 7.0 g/dL 01/16/2015 Comp Metabolic Cak920 GL OB 2.7 g/dL 01/16/2015 Comp Metabolic Vox042 A/ G Ratio 1.6 Ratio 01/16/2015 Comp Metabolic Cdj523 Os mo 275 mOsmo 01/16/2015 Vitamin D 25 Oh Tkr1309 VITAMIN D, 25 HYDROXY 19.37 ng/mL 01/16/2015 %Hba1C Fij058 % HbA1c 60616-6 5.8 % 01/16/2015 %Hba1C Bux536 Gluc Ave 120 mg/dL 01/16/2015 Cbc With [...] clear 01/16/2015 None Full Exam - General 1995 Eyes pupils and irises Overall: pupils equal, round, reactive to light and accomodation 01/16/2015 None Procedures Procedure Codes Date PPPS, SUBSEQ VISIT CPT- 4: G0439 05/30/2018 ADMIN PNEUMOCOCCAL V ACCINE SNOMED CT: 69557710 CPT-4: G0009 05/30/2018 PNEUMOCOCCAL VACC [address]: 89211803 CPT-4: 22526 05/30/2018 Vital Signs Date Vital 08/31/2018 Blood Pressure 1: 122/88 Code: 8480-6 BMI: 37.8 Code: 39172-0 Heart Rate 1: 74 bpm Height: 5'4" SpO2: 97% Weight: 220 lbs 05/30/2018 Blood Pressure 1: 132/70 Code: 8480-6 BMI: 37.6 Code: 64638-6 Heart Rate 1: 64 bpm Height: 5'4" SpO2: 96% Weight: 219 lbs 04/20/2017 Blood Pressure 1: 122/84 Code: 8480-6 BMI: 36.7 Code: 02047-9 Heart Rate 1: 75 bpm Height: 5'4" SpO2: 95% Weight: 214 lbs 03/10/2016 Blood Pressure 1: 120/86 Code: 8480-6 BMI: 36.6 Code: 63354-3 Heart Rate 1: 70 bpm Height: 5'4" SpO2: 96% Weight: 213 lbs 09/21/2015 Blood Pressure 1: 128/82 Code: 8480-6 BMI: 36.0 Code: 99533-9 Heart Rate 1: 74 bpm Height: 5'4" SpO2: 97% Weight: 210 lbs 07/23/2015 Blood Pressure 1: 120/80 Code: 8480-6 BMI: 36.7 Code: 24608-9 Heart Rate 1: 73 bpm Height: 5'4" SpO2: 96% Weight: 214 lbs 01/16/2015 Blood Pressure 1: 130/84 Code: 8480-6 BMI: 37.4 Code: 79464-4 Heart Rate 1: 60 bpm Height: 5'4" [...] Condition s cardiac disease 04/20/2017 dad from [place] age 49, brother also with heart attack [...] Condition s cardiac disease 03/10/2016 dad from [place] age 49, brother also with heart attack [...] Condition s cardiac disease 07/23/2015 dad from [place] age 49, brother also with heart attack hypertension Triggers no known associated factors 07/23/2015 None hypertension Alleviating Factors medication 07/23/2015 None hypertension Pertinent Findings Denies dizziness 07/23/2015 None hypertension Pertinent Findings Denies dyspnea 07/23/2015 None hypertension Pertinent Findings Denies edema 07/23/2015 None hypertension Onset and Resolution ongoing 01/16/2015 None hypertension Significant Medical Condition s cardiac disease 01/16/2015 dad from [place] age 49, brother also with heart attack [...] Encounters Encounter Performer Loca tion Codes Date ([id number]) [id number] EST. P ATIENT, LEVEL III Diagnosis: Urinary tract infection, site not specified[ICD10: N39.0] Jaycee Graves MD, [facility] CPT-4: 08218 08/31/2018 [id number]) [id number] EST. P ATIENT, LEVEL IV Diagnosis: Essential (primary) hypertension[ICD10: I10] Diagnosis: Mixed hyperlipidemia[ICD10: E78.2] Diagnosis: Vitamin D deficiency, unspecified[ICD10: E55.9] Diagnosis: Impaired fasting glucose[ICD10: R73.01] [facility] CPT-4: 60564 04/20/2017 ([id number]) [id number] EST. P ATIENT, LEVEL IV Diagnosis: Essential (primary) hypertension[ICD10: I10] Diagnosis: Mixed hyperlipidemia[ICD10: E78.2] Diagnosis: Impaired fasting glucose[ICD10: R73.01] Diagnosis: Vitamin D deficiency, unspecified[ICD10: E55.9] Jaycee Graves MD, [facility] CPT-4: 49360 03/10/2016 [id number] EST. P ATIENT, LEVEL IV Diagnosis: Essential (primary) hypertension[ICD10: I10] Diagnosis: Mixed hyperlipidemia[ICD10: E78.2] Diagnosis: Vitamin D deficiency, unspecified[ICD10: E55.9] Diagnosis: Impaired fasting glucose[ICD10: R73.01] Diagnosis: Body mass index (BMI) 36.0-36.9, adult[ICD10: Z68.36] Jaycee Graves MD, [facility] CPT-4: 52764 09/21/2015 ([id number]) [id number] EST. P ATIENT, LEVEL IV Diagnosis: Essential (primary) hypertension[ICD10: I10] Diagnosis: Mixed hyperlipidemia[ICD10: E78.2] Diagnosis: Other abnormal glucose[ICD10: R73.09] Diagnosis: Morbid (severe) obesity due to excess calories[ICD10: E66.01] Nkechi Graves MD, [facility] CPT-4: 14869 07/23/2015 ([id number]) OFFICE [facility], [facility] - LEVEL 3 Diagnosis: ESSENTIAL HYPERTENSION[ICD9: 401.9] Diagnosis: Hyperlipidemia[ICD9: 272.4] Diagnosis: Elevated blood sugar[ICD9: 790.29] Diagnosis: VITAMIN D DEFICIENCY[ICD9: 268.9] Jaycee Graves MD, [facility] CPT- 4: 38179 01/16/2015 Plan of Care Planned Activity Notes [...] of plan. 08/31/2018 Appointment[facility] [phone] [phone] [facility] Simple 08/31/2018 Patient Education: Patient [...] for health care surrogate. 05/30/2018 Appointment: [facility] [phone] [facility] [facility] - Annual Wellness Visit 05/30/2018 Patient [...] Hgb A1c 04/20/2017 Appointment: Jaycee Trevino WPtel: [phone] [facility] (30 min) Complex 04/20/2017 Patient Education: Patient Medication Summary Completed 04/20/2017 Patient Education: Obesity Completed 04/20/2017 Patient Education: Hypertension Completed 04/20/2017 Care Plan: Comp Metabolic Pending 04/20/2017 Care Plan: Cbc With Differential Pending 04/20/2017 Care Plan: %Hba1C LOIN C : 27213-3 Pending 04/20/2017 Care Plan: Tsh Pending 04/20/2017 Care Plan: Lipid Pending 04/20/2017 Care Plan: Vitamin D 25 Oh Pending 04/20/2017 Appointment: Lab Draw 08/17/2016 Appointment: Selene Roche WPtel: [facility] [facility] - Welcome to Medicare visit 07/28/2016 [...] Obesity Completed 03/10/2016 [facility] [phone] [facility] ([facility] Complex 09/23/2015 Visit Plan: Hypertension [...] check. 07/23/2015 Appointment: [facility]ke[facility] Graves [facility] [phone] [facility] [place] (15 min) Moderate 07/23/2015 Appointment: [facility] [phone] [facility] [place] ([place] min) Complex 07/23/2015 Patient Education: Patient Medication Summary Completed 07/23/2015 Patient Education: Hypertension Completed 07/23/2015 Visit Plan: Hypertension - well con kaitlin - continue with current medications, continue with [...]
--- OUTSIDE RECORDS SUMMARY | 2019-12-09 09:54 | XMS REPORT | CCD ---
Author Author Leigh Ann Trevino Organization Nkechi Graves MD, [facility] Address [address] [place] [address] Phone Care Team Providers Care Armed Custom Protection Officer Name Role Phone PP Unavailable CCM Unavailable Summary Purpose Interface Exchange Insurance Providers Payer name Policy type / Coverage type Covered green party ID Effective Begin Date Effective End Date WPS Medicare Part B Medicare Part B [id number] 2015 Unknown [employer] [place] Medicare Part B [id number] 2015 Unknown Family history Brother Diagnosis Age At Onset Heart Attack Unknown Mother Diagnosis Age At Onset Dementia Unknown Father Diagnosis Age At Onset Heart Attack Unknown Social History Social History Element Codes Description Effective Dates Marital status Unknown M amina stanton 01/16/2015 Number of children Unknown 2 01/16/2015 Employment Unknown Retir ed 01/16/[address]: 974513176 Never smoker 01/16/[address]: 508905 Currently drinks alcohol 01/16/2015 Allergies, Adverse Reactions, [...] Instructions propranolol 60 mg ta blet RxNorm: 870138 1 Tablet(s) PO BID TA KE ONE TABLET BY MOUTH TWICE A DAY 08/31/2018 11/23/2019 Active hydrochlorothiazide 12.5 mg capsule RxNorm: 781718 TAKE ONE CAPSULE BY M OUTH DAILY 08/31/2018 05/27/2019 Ac tive irbesartan 150 mg ta blet RxNorm: 064722 TAKE ONE TABLET BY MO UTH DAILY 08/31/2018 05/27/2019 Ac tive Keflex 500 mg capsule RxNorm: 690144 1 Capsule(s) PO TID 08/31/2018 09/06/2018 Active irbesartan 150 mg ta blet RxNorm: 672950 1 Tablet(s) PO daily TAKE ONE TABLET BY MOUTH DAILY 08/31/2018 08/30/2018 Inactive hydrochlorothiazide 12.5 mg capsule RxNorm: 1 Capsule(s) PO daily TAKE ONE CAPSULE BY MOUTH DAILY 08/31/2018 08/30/2018 Inactive hydrochlorothiazide 12.5 mg capsule RxNorm: TAKE ONE CAPSULE BY M OUTH DAILY 08/16/2017 08/10/2018 In active irbesartan 150 mg ta blet RxNorm: 341179 TAKE ONE TABLET BY MO UTH DAILY 08/16/2017 08/10/2018 In active propranolol 60 mg ta blet RxNorm: 676368 1 Tablet(s) PO BID TA KE ONE TABLET BY MOUTH TWICE A DAY 04/20/2017 07/13/2018 Inactive propranolol 60 mg ta blet RxNorm: 625618 TAKE ONE TABLET BY MO UTH TWICE A DAY 04/18/2017 04/19/2017 In active irbesartan 150 mg ta blet RxNorm: 20000314 TAKE ONE TABLET BY MO [facility] DAILY 10/31/2016 07/27/2017 In active hydrochlorothiazide 12.5 mg capsule RxNorm: TAKE ONE CAPSULE BY [facility] DAILY 10/31/2016 07/27/2017 In active propranolol 60 mg ta blet RxNorm: 001073 TAKE ONE TABLET BY [facility] TWICE A DAY 10/26/2016 01/23/2017 In active Zithromax Z-Andres 250 mg tablet RxNorm: 944178 1 Tablet(s) PO UD 08/17/2016 04/17/2017 Inactive z pack as directed propranolol 60 mg ta blet RxNorm: 244114 1 Tablet(s) PO BID 04/19/2016 04/18/2016 Inactive propranolol 60 mg ta blet RxNorm: 308968 1 Tablet(s) PO BID 04/19/2016 08/16/2016 Inactive Contrave 8 mg-90 mg tablet,extended release RxNorm: 8928495 2 Tablet(s) PO BID 09/21/2015 03/09/2016 In active propranolol ER 120 m g capsule,24 hr,extended release RxNorm: 126761 1 Capsule(s) PO daily 07/23/2015 04/18/2016 Inactive irbesartan 150 mg ta blet RxNorm: 979520 1 Tablet(s) PO daily 07/23/2015 07/16/2016 Inactive hydrochlorothiazide 12.5 mg capsule RxNorm: 1 Capsule(s) PO daily 07/23/2015 07/16/2016 In active PLEASE GIVE PT 90 ON ALL MEDICINES Vitamin D3 2,000 uni t capsule RxNorm: 970581 1 Capsule(s) PO daily 07/23/2015 09/23/2015 Inactive Belviq 10 mg tablet RxNorm: 2744220 1 Tablet(s) PO BID 07/23/2015 09/20/2015 Inactive Vitamin D2 50,000 un it capsule RxNorm: 056101 1 Capsule(s) PO weekl y and 2000u daily of vit d 01/16/2015 04/15/2015 Inactive and take 2000 u daily of Vi t D as well Vitamin D2 50,000 un it capsule RxNorm: 620462 1 Capsule(s) PO weekly 01/16/2015 01/15/2015 Inactive and take 2000 u daily of Vit D as well propranolol ER 120 m g capsule,24 hr,extended release RxNorm: 427067 1 Capsule(s) PO daily 01/16/2015 07/14/2015 Inactive hydrochlorothiazide 12.5 mg capsule RxNorm: 1 Capsule(s) PO daily 01/16/2015 07/14/2015 In active PLEASE GIVE PT 90 ON ALL MEDICINES hydrochlorothiazide 12.5 mg capsule RxNorm: 1 Capsule(s) PO daily 01/16/2015 01/15/2015 In active propranolol ER 120 m g capsule,24 hr,extended release RxNorm: 172967 1 Capsule(s) PO daily 01/16/2015 01/15/2015 Inactive irbesartan 150 mg ta blet RxNorm: 017549 1 Tablet(s) PO daily 01/16/2015 07/14/2015 Inactive irbesartan 150 mg ta blet RxNorm: 142847 1 Tablet(s) PO daily 01/16/2015 01/15/2015 Inactive Vitamin D3 5,000 uni t tablet RxNorm: 386159 1 Tablet(s) PO daily No Start Date Active Zithromax Z-Andres 250 mg tablet RxNorm: 398168 1 Tablet(s) PO UD No Start Date 08/16/2016 Inactive z pack as directed irbesartan 150 mg ta blet RxNorm: 935053 1 Tablet(s) PO daily No Start Date 01/15/2015 Inactive Vitamin D3 2,000 uni t capsule RxNorm: 912478 1 Capsule(s) PO daily No Start Date 07/22/2015 Inactive propranolol ER 120 m g capsule,24 hr,extended release RxNorm: 511711 1 Capsule(s) PO daily No Start Date [...] 30.5 pg 04/20/2017 Cbc With Differential Ord2 Wilkin% 7.2 % 04/20/2017 Cbc With Differential Ord2 [...] 2.21 K/ul 04/20/2017 Cbc With Differential Ord2 Wilkin ABS# 0.6 K/ul 04/20/2017 Cbc With Differential Ord2 Eos ABS# 0.1 K/ul 04/20/2017 Cbc With Differential Ord2 Baso ABS# 0.0 K/ul 04/20/2017 %Hba1C Kni317 % HbA1c 62778-6 5.9 % 04/20/2017 %Hba1C Fcc867 Gluc Ave 123 mg/dL 04/20/2017 Vitamin D 25 Oh Eot8048 VITAMIN D, 25 HYDROXY 53.49 ng/mL 04/20/2017 Comp Metabolic Bqj482 NA 139 mEq/L 04/20/2017 Comp Metabolic Qrm663 K 4.4 mEq/L 04/20/2017 Comp Metabolic Lvp272 CL 100 mEq/L 04/20/2017 Comp Metabolic Ftr086 CO2 27.0 mEq/L 04/20/2017 Comp Metabolic Uqo925 AN ION GAP 16 04/20/2017 Comp Metabolic Sjc524 GL UCOSE 113 mg/dL 04/20/2017 Comp Metabolic Vhb447 Cr eat 0.8 mg/dL 04/20/2017 Comp Metabolic Yvj953 eG FR 77 ml/min/1.73m2 04/20 Comp Metabolic Ese770 BUN 17 mg/dL 04/20/2017 Comp Metabolic Gyu153 B/ C Ratio 21.5 Ratio 04/20/2017 Comp Metabolic Lln741 CA LCIUM 9.9 mg/dL 04/20/2017 Comp Metabolic Hfl316 AL K PHOS 69 U/L 04/20/2017 Comp Metabolic Eig411 T(SGOT) 16 U/L 04/20/2017 Comp Metabolic Mmz411 AL T(SGPT) 13 U/L 04/20/2017 Comp Metabolic Poo417 BI LI T 0.7 mg/dL 04/20/2017 Comp Metabolic Pbj505 AL BUMIN 4.6 g/dL 04/20/2017 Comp Metabolic Nlo127 TP RO 7.1 g/dL 04/20/2017 Comp Metabolic Ewp805 GL OB 2.6 g/dL 04/20/2017 Comp Metabolic Msg788 A/ G Ratio 1.8 Ratio 04/20/2017 Comp Metabolic Xnc813 Os mo 280 mOsmo 04/20/2017 Quick Strep Fzf1122 Quic k Strep Negative 08/17/2016 Influenza A+B Aad170 Inf anastacia A+B Negative 08/17/2016 Vitamin D 25 Oh Qpi7122 VITAMIN D, 25 HYDROXY 43.92 ng/mL 03/11/2016 %Hba1C Hjx082 % HbA1c 18688-2 5.9 % 03/10/2016 %Hba1C Isb725 Gluc Ave 123 mg/dL 03/10/2016 Comp Metabolic Oab912 NA 136 mEq/L 03/10/2016 Comp Metabolic Fcg265 K 4.1 mEq/L 03/10/2016 Comp Metabolic Eib886 CL 100 mEq/L 03/10/2016 Comp Metabolic Qcs926 CO2 29.0 mEq/L 03/10/2016 Comp Metabolic Xwy956 AN ION GAP 11 03/10/2016 Comp Metabolic Lge352 GL UCOSE 110 mg/dL 03/10/2016 Comp Metabolic Fua682 Cr eat 0.8 mg/dL 03/10/2016 Comp Metabolic Srl119 eG FR 74 ml/min/1.73m2 03/10 Comp Metabolic Lyi082 BUN 26 mg/dL 03/10/2016 Comp Metabolic Fit664 B/ C Ratio 31.7 Ratio 03/10/2016 Comp Metabolic Whc508 CA LCIUM 9.7 mg/dL 03/10/2016 Comp Metabolic Okb078 AL K PHOS 62 U/L 03/10/2016 Comp Metabolic Ksb565 T(SGOT) 17 U/L 03/10/2016 Comp Metabolic Zmc043 AL T(SGPT) 15 U/L 03/10/2016 Comp Metabolic Vvq998 BI LI T 0.6 mg/dL 03/10/2016 Comp Metabolic Isw191 AL BUMIN 4.4 g/dL 03/10/2016 Comp Metabolic Xeu338 TP RO 7.0 g/dL 03/10/2016 Comp Metabolic Dfb270 GL OB 2.6 g/dL 03/10/2016 Comp Metabolic Pip194 A/ G Ratio 1.7 Ratio 03/10/2016 Comp Metabolic Kji514 Os mo 277 mOsmo 03/10/2016 Lipid Ord30 [...] 30.4 pg 03/10/2016 Cbc With Differential Ord2 Wilkin% 7.9 % 03/10/2016 Cbc With Differential Ord2 Eos% 1.4 % 03/10/2016 Cbc With Differential Ord2 MCHC 32.6 pg 03/10/2016 Cbc With Differential Ord2 Baso% 0.4 % 03/10/2016 Cbc With Differential Ord2 PLT 198 K/ul 03/10/2016 Cbc With Differential Ord2 RDW 13.5 % 03/10/2016 Cbc With Differential Ord2 Neut ABS# 4.68 K/ul 03/10/2016 Cbc With Differential Ord2 Lymph ABS# 2.44 K/ul 03/10/2016 Cbc With Differential Ord2 Wilkin ABS# 0.6 K/ul 03/10/2016 Cbc With Differential Ord2 Eos ABS# 0.1 K/ul 03/10/2016 Cbc With Differential Ord2 Baso ABS# 0.0 K/ul 03/10/2016 Lipid Ord30 CHOL 196 mg/dL 09/21/2015 Lipid Ord30 HDL 34.0 mg/dl 09/21/2015 Lipid Ord30 TRIG 190 mg/dL 09/21/2015 Lipid Ord30 LDL 124 mg/dL 09/21/2015 Lipid Ord30 C/HDL 5.8 Ratio 09/21/2015 %Hba1C Hfm450 % HbA1c 80893-2 5.8 % 09/21/2015 %Hba1C Enj966 Gluc Ave 120 mg/dL 09/21/2015 Vitamin D 25 Oh Kpe5601 VITAMIN D, 25 HYDROXY 32.62 ng/mL 09/21/2015 Comp Metabolic Irx328 NA 139 mEq/L 09/21/2015 Comp Metabolic Gjf229 K 4.0 mEq/L 09/21/2015 Comp Metabolic Ihv832 CL 101 mEq/L 09/21/2015 Comp Metabolic Trb589 CO2 30.0 mEq/L 09/21/2015 Comp Metabolic Spp362 AN ION GAP 12 09/21/2015 Comp Metabolic Sxh153 GL UCOSE 98 mg/dL 09/21/2015 Comp Metabolic Xya620 Cr eat 0.8 mg/dL 09/21/2015 Comp Metabolic Opx807 eG FR 81 ml/min/1.73m2 09/20 Comp Metabolic Dos669 BUN 14 mg/dL 09/21/2015 Comp Metabolic Pnd360 B/ C Ratio 18.4 Ratio 09/21/2015 Comp Metabolic Ocw607 CA LCIUM 9.5 mg/dL 09/21/2015 Comp Metabolic Uyp187 AL K PHOS 57 U/L 09/21/2015 Comp Metabolic Asn891 T(SGOT) 12 U/L 09/21/2015 Comp Metabolic Eud386 AL T(SGPT) 10 U/L 09/21/2015 Comp Metabolic Iyj291 BI LI T 0.7 mg/dL 09/21/2015 Comp Metabolic Ads063 AL BUMIN 4.2 g/dL 09/21/2015 Comp Metabolic Fkt328 TP RO 6.7 g/dL 09/21/2015 Comp Metabolic Gts787 GL OB 2.5 g/dL 09/21/2015 Comp Metabolic Zpn230 A/ G Ratio 1.7 Ratio 09/21/2015 Comp Metabolic Tsd880 Os mo 278 mOsmo 09/21/2015 Tsh Ord6 hTSH II 1.21 uIU/mL 09/21/2015 Cbc With Differential Ord2 WBC 7.82 K/ul 09/21/2015 Cbc With Differential Ord2 RBC 4.51 M/ul 09/21/2015 Cbc With Differential Ord2 HGB 13.6 g/dl 09/21/2015 Cbc With Differential Ord2 Neut% 59.2 % 09/21/2015 Cbc With Differential Ord2 HCT 42.0 % 09/21/2015 Cbc With Differential Ord2 MCV 93.1 fl 09/21/2015 Cbc With Differential Ord2 Lymph% 29.8 % 09/21/2015 Cbc With Differential Ord2 Wilkin% 8.7 % 09/21/2015 Cbc With Differential Ord2 MCH 30.2 pg 09/21/2015 Cbc With Differential Ord2 MCHC 32.4 pg 09/21/2015 Cbc With Differential Ord2 Eos% 1.8 % 09/21/2015 Cbc With Differential Ord2 PLT 248 K/ul 09/21/2015 Cbc With Differential Ord2 Baso% 0.5 % 09/21/2015 Cbc With Differential Ord2 Neut ABS# 4.63 K/ul 09/21/2015 Cbc With Differential Ord2 RDW 13.4 % 09/21/2015 Cbc With Differential Ord2 Lymph ABS# 2.33 K/ul 09/21/2015 Cbc With Differential Ord2 Wilkin ABS# 0.7 K/ul 09/21/2015 Cbc With Differential Ord2 Eos ABS# 0.1 K/ul 09/21/2015 Cbc With Differential Ord2 Baso ABS# 0.0 K/ul 09/21/2015 Cbc With Differential Ord2 New Analyzer Notice Please note new ref ranges s tarting 07-22-2015 due to implemntation of new five part differential hematolgy analyzer. 09/21/2015 Tsh Ord6 hTSH II 1.39 uIU/mL 01/16/2015 Comp Metabolic Gwt092 NA 137 mEq/L 01/16/2015 Comp Metabolic Clm286 K 4.3 mEq/L 01/16/2015 Comp Metabolic Jxp622 CL 101 mEq/L 01/16/2015 Comp Metabolic Aie406 CO2 30.0 mEq/L 01/16/2015 Comp Metabolic Foy224 AN ION GAP 10 01/16/2015 Comp Metabolic Nwc742 GL UCOSE 111 mg/dL 01/16/2015 Comp Metabolic Vdm308 Cr eat 0.8 mg/dL 01/16/2015 Comp Metabolic Pys790 eG FR 78 ml/min/1.73m2 01/16 Comp Metabolic Jnj744 BUN 14 mg/dL 01/16/2015 Comp Metabolic Vio794 B/ C Ratio 17.7 Ratio 01/16/2015 Comp Metabolic Dtx247 CA LCIUM 9.8 mg/dL 01/16/2015 Comp Metabolic Cyr877 AL K PHOS 76 U/L 01/16/2015 Comp Metabolic Imj343 T(SGOT) 12 U/L 01/16/2015 Comp Metabolic Xsw729 AL T(SGPT) 11 U/L 01/16/2015 Comp Metabolic Efb395 BI LI T 0.7 mg/dL 01/16/2015 Comp Metabolic Sez717 AL BUMIN 4.3 g/dL 01/16/2015 Comp Metabolic Oou448 TP RO 7.0 g/dL 01/16/2015 Comp Metabolic Afk721 GL OB 2.7 g/dL 01/16/2015 Comp Metabolic Oqo200 A/ G Ratio 1.6 Ratio 01/16/2015 Comp Metabolic Yon607 Os mo 275 mOsmo 01/16/2015 Vitamin D 25 Oh Jbi4005 VITAMIN D, 25 HYDROXY 19.37 ng/mL 01/16/2015 %Hba1C Luv483 % HbA1c 47404-3 5.8 % 01/16/2015 %Hba1C Dae631 Gluc Ave 120 mg/dL 01/16/2015 Cbc With [...] 05/30/2018 ADMIN PNEUMOCOCCAL V ACCINE SNOMED CT: 94189208 CPT-4: G0009 05/30/2018 PNEUMOCOCCAL VACC [address]: 95887351 CPT-4: 42325 05/30/2018 Vital Signs Date Vital 08/31/2018 Blood Pressure 1: 122/88 Code: 8480-6 BMI: 37.8 Code: 27435-9 Heart Rate 1: 74 bpm Height: 5'4" SpO2: 97% Weight: 220 lbs 05/30/2018 Blood Pressure 1: 132/70 Code: 8480-6 BMI: 37.6 Code: 27768-8 Heart Rate 1: 64 bpm Height: 5'4" SpO2: 96% Weight: 219 lbs 04/20/2017 Blood Pressure 1: 122/84 Code: 8480-6 BMI: 36.7 Code: 13205-7 Heart Rate 1: 75 bpm Height: 5'4" SpO2: 95% Weight: 214 lbs 03/10/2016 Blood Pressure 1: 120/86 Code: 8480-6 BMI: 36.6 Code: 45509-7 Heart Rate 1: 70 bpm Height: 5'4" SpO2: 96% Weight: 213 lbs 09/21/2015 Blood Pressure 1: 128/82 Code: 8480-6 BMI: 36.0 Code: 33277-9 Heart Rate 1: 74 bpm Height: 5'4" SpO2: 97% Weight: 210 lbs 07/23/2015 Blood Pressure 1: 120/80 Code: 8480-6 BMI: 36.7 Code: 23981-7 Heart Rate 1: 73 bpm Height: 5'4" SpO2: 96% Weight: 214 lbs 01/16/2015 Blood Pressure 1: 130/84 Code: 8480-6 BMI: 37.4 Code: 20740-8 Heart Rate 1: 60 bpm Height: 5'4" [...] Condition s cardiac disease 04/20/2017 dad from [place] age 49, brother also with heart attack [...] Condition s cardiac disease 03/10/2016 dad from [place] age 49, brother also with heart attack [...] Condition s cardiac disease 07/23/2015 dad from [place] age 49, brother also with heart attack hypertension Triggers no known associated factors 07/23/2015 None hypertension Alleviating Factors medication 07/23/2015 None hypertension Pertinent Findings Denies dizziness 07/23/2015 None hypertension Pertinent Findings Denies dyspnea 07/23/2015 None hypertension Pertinent Findings Denies edema 07/23/2015 None hypertension Onset and Resolution ongoing 01/16/2015 None hypertension Significant Medical Condition s cardiac disease 01/16/2015 dad from [place] age 49, brother also with heart attack [...] Encounters Encounter Performer Loca tion Codes Date ([id number]) [id number] EST. P ATIENT, LEVEL III Diagnosis: Urinary tract infection, site not specified[ICD10: N39.0] Jaycee Graves MD, [facility] CPT-4: 06365 08/31/2018 [id number]) [id number] EST. P ATIENT, LEVEL IV Diagnosis: Essential (primary) hypertension[ICD10: I10] Diagnosis: Mixed hyperlipidemia[ICD10: E78.2] Diagnosis: Vitamin D deficiency, unspecified[ICD10: E55.9] Diagnosis: Impaired fasting glucose[ICD10: R73.01] [facility] CPT-4: 41871 04/20/2017 ([id number]) [id number] EST. P ATIENT, LEVEL IV Diagnosis: Essential (primary) hypertension[ICD10: I10] Diagnosis: Mixed hyperlipidemia[ICD10: E78.2] Diagnosis: Impaired fasting glucose[ICD10: R73.01] Diagnosis: Vitamin D deficiency, unspecified[ICD10: E55.9] Jaycee Graves MD, [facility] CPT-4: 03585 03/10/2016 ([id number] EST. P ATIENT, LEVEL IV Diagnosis: Essential (primary) hypertension[ICD10: I10] Diagnosis: Mixed hyperlipidemia[ICD10: E78.2] Diagnosis: Vitamin D deficiency, unspecified[ICD10: E55.9] Diagnosis: Impaired fasting glucose[ICD10: R73.01] Diagnosis: Body mass index (BMI) 36.0-36.9, adult[ICD10: Z68.36] Jaycee Graves MD, [facility] CPT-4: 61287 09/21/2015 ([id number]) 91602 EST. P ATIENT, LEVEL IV Diagnosis: Essential (primary) hypertension[ICD10: I10] Diagnosis: Mixed hyperlipidemia[ICD10: E78.2] Diagnosis: Other abnormal glucose[ICD10: R73.09] Diagnosis: Morbid (severe) obesity due to excess calories[ICD10: E66.01] Nkechi Graves MD, [facility] CPT-4: 67198 07/23/2015 ([id number]) OFFICE [facility] - LEVEL 3 Diagnosis: ESSENTIAL HYPERTENSION[ICD9: 401.9] Diagnosis: Hyperlipidemia[ICD9: 272.4] Diagnosis: Elevated blood sugar[ICD9: 790.29] Diagnosis: VITAMIN D DEFICIENCY[ICD9: 268.9] Jaycee Graves MD, [facility] CPT- 4: 67465 01/16/2015 Plan of Care Planned Activity Notes [...] diarrhea. Patient verbalized understanding of plan. 08/31/2018 Patient Education: Patient Medication Summary Completed [...] care surrogate. 05/30/2018 [facility] [phone] [facility] [facility] - Annual Wellness Visit 05/30/2018 Patient [...] A1c 04/20/2017 Appointment: [facility] Tre[facility] [phone] [facility] (30 min) Complex 04/20/2017 Patient Education: Patient Medication Summary Completed 04/20/2017 Patient Education: Obesity Completed 04/20/2017 Patient Education: Hypertension Completed 04/20/2017 Care Plan: Comp Metabolic Pending 04/20/2017 Care Plan: Cbc With Differential Pending 04/20/2017 Care Plan: %Hba1C LOIN C : 93139-8 Pending 04/20/2017 Care Plan: Tsh Pending 04/20/2017 Care Plan: Lipid Pending 04/20/2017 Care Plan: Vitamin D 25 Oh Pending 04/20/2017 Appointment: Lab Draw 08/17/2016 [facility] [phone] [facility] [facility] - Welcome to Medicare visit 07/28/2016 [...] Completed 03/10/2016 Appointment: Nkechi Graves [facility]el[id number] ([facility] Complex 09/23/2015 Visit Plan: [...] check. 07/23/2015 App[facility]ment[facility] [phone] [id number] [place] (15 min) Moderate 07/23/2015 Appointment: [facility] [phone] [id number] ([facility]) Complex 07/23/2015 Patient Education: Patient Medication Summary Completed 07/23/2015 Patient Education: Hypertension Completed 07/23/2015 Visit Plan: Hypertension - erica madrigal - continue with current medications, continue with [...]
--- OUTSIDE RECORDS SUMMARY | 2019-12-09 09:55 | XMS REPORT | CCD ---
Author Author Leigh Ann Trevino Organization Nkechi Graves MD, [facility] Address [address] [place] [address] Phone Care Team Providers Care Feltmaker And Weigher Name Role Phone PP Unavailable CCM Unavailable Summary Purpose Interface Exchange Insurance Providers Payer name Policy type / Coverage type Covered democrat ID Effective Begin Date Effective End Date WPS Medicare Part B Medicare Part B [id number] 2015 Unknown [employer] [place] Medicare Part B [id number] 2015 Unknown Family history Brother Diagnosis Age At Onset Heart Attack Unknown Mother Diagnosis Age At Onset Dementia Unknown Father Diagnosis Age At Onset Heart Attack Unknown Social History Social History Element Codes Description Effective Dates Marital status Unknown M amina stanton 01/16/2015 Number of children Unknown 2 01/16/2015 Employment Unknown Retir ed 01/16/[address]: 159167094 Never smoker 01/16/[address]: 572845 Currently drinks alcohol 01/16/2015 Allergies, Adverse Reactions, [...] Instructions propranolol 60 mg ta blet RxNorm: 730483 1 Tablet(s) PO BID TA KE ONE TABLET BY MOUTH TWICE A DAY 08/31/2018 11/23/2019 Active hydrochlorothiazide 12.5 mg capsule RxNorm: 780941 TAKE ONE CAPSULE BY M OUTH DAILY 08/31/2018 05/27/2019 Ac tive irbesartan 150 mg ta blet RxNorm: 060244 TAKE ONE TABLET BY MO UTH DAILY 08/31/2018 05/27/2019 Ac tive Keflex 500 mg capsule RxNorm: 598558 1 Capsule(s) PO TID 08/31/2018 09/06/2018 Active irbesartan 150 mg ta blet RxNorm: 780859 1 Tablet(s) PO daily TAKE ONE TABLET BY MOUTH DAILY 08/31/2018 08/30/2018 Inactive hydrochlorothiazide 12.5 mg capsule RxNorm: 1 Capsule(s) PO daily TAKE ONE CAPSULE BY MOUTH DAILY 08/31/2018 08/30/2018 Inactive hydrochlorothiazide 12.5 mg capsule RxNorm: TAKE ONE CAPSULE BY M OUTH DAILY 08/16/2017 08/10/2018 In active irbesartan 150 mg ta blet RxNorm: 533706 TAKE ONE TABLET BY MO UTH DAILY 08/16/2017 08/10/2018 In active propranolol 60 mg ta blet RxNorm: 660503 1 Tablet(s) PO BID TA KE ONE TABLET BY MOUTH TWICE A DAY 04/20/2017 07/13/2018 Inactive propranolol 60 mg ta blet RxNorm: 954823 TAKE ONE TABLET BY MO UTH TWICE A DAY 04/18/2017 04/19/2017 In active irbesartan 150 mg ta blet RxNorm: 20000314 TAKE ONE TABLET BY MO [facility] DAILY 10/31/2016 07/27/2017 In active hydrochlorothiazide 12.5 mg capsule RxNorm: TAKE ONE CAPSULE BY [facility] DAILY 10/31/2016 07/27/2017 In active propranolol 60 mg ta blet RxNorm: 450092 TAKE ONE TABLET BY [facility] TWICE A DAY 10/26/2016 01/23/2017 In active Zithromax Z-Andres 250 mg tablet RxNorm: 662161 1 Tablet(s) PO UD 08/17/2016 04/17/2017 Inactive z pack as directed propranolol 60 mg ta blet RxNorm: 010568 1 Tablet(s) PO BID 04/19/2016 04/18/2016 Inactive propranolol 60 mg ta blet RxNorm: 993963 1 Tablet(s) PO BID 04/19/2016 08/16/2016 Inactive Contrave 8 mg-90 mg tablet,extended release RxNorm: 2043081 2 Tablet(s) PO BID 09/21/2015 03/09/2016 In active propranolol ER 120 m g capsule,24 hr,extended release RxNorm: 253835 1 Capsule(s) PO daily 07/23/2015 04/18/2016 Inactive irbesartan 150 mg ta blet RxNorm: 923047 1 Tablet(s) PO daily 07/23/2015 07/16/2016 Inactive hydrochlorothiazide 12.5 mg capsule RxNorm: 1 Capsule(s) PO daily 07/23/2015 07/16/2016 In active PLEASE GIVE PT 90 ON ALL MEDICINES Vitamin D3 2,000 uni t capsule RxNorm: 655985 1 Capsule(s) PO daily 07/23/2015 09/23/2015 Inactive Belviq 10 mg tablet RxNorm: 0239715 1 Tablet(s) PO BID 07/23/2015 09/20/2015 Inactive Vitamin D2 50,000 un it capsule RxNorm: 824252 1 Capsule(s) PO weekl y and 2000u daily of vit d 01/16/2015 04/15/2015 Inactive and take 2000 u daily of Vi t D as well Vitamin D2 50,000 un it capsule RxNorm: 345923 1 Capsule(s) PO weekly 01/16/2015 01/15/2015 Inactive and take 2000 u daily of Vit D as well propranolol ER 120 m g capsule,24 hr,extended release RxNorm: 714246 1 Capsule(s) PO daily 01/16/2015 07/14/2015 Inactive hydrochlorothiazide 12.5 mg capsule RxNorm: 1 Capsule(s) PO daily 01/16/2015 07/14/2015 In active PLEASE GIVE PT 90 ON ALL MEDICINES hydrochlorothiazide 12.5 mg capsule RxNorm: 1 Capsule(s) PO daily 01/16/2015 01/15/2015 In active propranolol ER 120 m g capsule,24 hr,extended release RxNorm: 397791 1 Capsule(s) PO daily 01/16/2015 01/15/2015 Inactive irbesartan 150 mg ta blet RxNorm: 018193 1 Tablet(s) PO daily 01/16/2015 07/14/2015 Inactive irbesartan 150 mg ta blet RxNorm: 900421 1 Tablet(s) PO daily 01/16/2015 01/15/2015 Inactive Vitamin D3 5,000 uni t tablet RxNorm: 070739 1 Tablet(s) PO daily No Start Date Active Zithromax Z-Andres 250 mg tablet RxNorm: 735411 1 Tablet(s) PO UD No Start Date 08/16/2016 Inactive z pack as directed irbesartan 150 mg ta blet RxNorm: 771796 1 Tablet(s) PO daily No Start Date 01/15/2015 Inactive Vitamin D3 2,000 uni t capsule RxNorm: 867176 1 Capsule(s) PO daily No Start Date 07/22/2015 Inactive propranolol ER 120 m g capsule,24 hr,extended release RxNorm: 123646 1 Capsule(s) PO daily No Start Date 01/15/2015 Inactive hydrochlorothiazide 12.5 mg capsule RxNorm: 1 Capsule(s) PO daily No Start Date 01/15/2015 Inactive Medication Administered No Medication Administered data Immunizations Vaccine Codes Date Status Pneumococcal (Adult) CVX: 133 05/30/2018 completed Assessments Condition Codes Effectiv e Dates Encounter for immunization ICD-10: Z 23 ICD-9: [...] Visit Reason For Visit Effective Dates Notes Annual Medicare Wellness Exam 05/30/2018 hypertension 04/20/2017 [...] 30.5 pg 04/20/2017 Cbc With Differential Ord2 [place]% 7.2 % 04/20/2017 Cbc With Differential Ord2 [...] 2.21 K/ul 04/20/2017 Cbc With Differential Ord2 [place] ABS# 0.6 K/ul 04/20/2017 Cbc With Differential Ord2 Eos ABS# 0.1 K/ul 04/20/2017 Cbc With Differential Ord2 Baso ABS# 0.0 K/ul 04/20/2017 %Hba1C Phm961 % HbA1c 35662-5 5.9 % 04/20/2017 %Hba1C Gff158 Gluc Ave 123 mg/dL 04/20/2017 Vitamin D 25 Oh Ehu0728 VITAMIN D, 25 HYDROXY 53.49 ng/mL 04/20/2017 Comp Metabolic Zkx763 NA 139 mEq/L 04/20/2017 Comp Metabolic Kmd577 K 4.4 mEq/L 04/20/2017 Comp Metabolic Kzz788 CL 100 mEq/L 04/20/2017 Comp Metabolic Vzu967 CO2 27.0 mEq/L 04/20/2017 Comp Metabolic Kvh374 AN ION GAP 16 04/20/2017 Comp Metabolic Lth703 GL UCOSE 113 mg/dL 04/20/2017 Comp Metabolic Qsq624 Cr eat 0.8 mg/dL 04/20/2017 Comp Metabolic Ioc870 eG FR 77 ml/min/1.73m2 04/20 Comp Metabolic Zoi950 BUN 17 mg/dL 04/20/2017 Comp Metabolic Ehm025 B/ C Ratio 21.5 Ratio 04/20/2017 Comp Metabolic Rzz270 CA LCIUM 9.9 mg/dL 04/20/2017 Comp Metabolic New645 AL K PHOS 69 U/L 04/20/2017 Comp Metabolic Uds698 T(SGOT) 16 U/L 04/20/2017 Comp Metabolic Ooe385 AL T(SGPT) 13 U/L 04/20/2017 Comp Metabolic Ppr276 BI LI T 0.7 mg/dL 04/20/2017 Comp Metabolic Pya845 AL BUMIN 4.6 g/dL 04/20/2017 Comp Metabolic Hbe309 TP RO 7.1 g/dL 04/20/2017 Comp Metabolic Vrr466 GL OB 2.6 g/dL 04/20/2017 Comp Metabolic Cmg737 A/ G Ratio 1.8 Ratio 04/20/2017 Comp Metabolic Hmu463 Os mo 280 mOsmo 04/20/2017 Quick Strep Xvo7410 Quic k Strep Negative 08/17/2016 Influenza A+B Wmq253 Inf anastacia A+B Negative 08/17/2016 Vitamin D 25 Oh Msu3611 VITAMIN D, 25 HYDROXY 43.92 ng/mL 03/11/2016 %Hba1C Mbs792 % HbA1c 81226-2 5.9 % 03/10/2016 %Hba1C Igi347 Gluc Ave 123 mg/dL 03/10/2016 Comp Metabolic Hep471 NA 136 mEq/L 03/10/2016 Comp Metabolic Lvk689 K 4.1 mEq/L 03/10/2016 Comp Metabolic Zpj379 CL 100 mEq/L 03/10/2016 Comp Metabolic Smw422 CO2 29.0 mEq/L 03/10/2016 Comp Metabolic Bot918 AN ION GAP 11 03/10/2016 Comp Metabolic Kgd652 GL UCOSE 110 mg/dL 03/10/2016 Comp Metabolic Bcm261 Cr eat 0.8 mg/dL 03/10/2016 Comp Metabolic Vzm866 eG FR 74 ml/min/1.73m2 03/10 Comp Metabolic Yrv756 BUN 26 mg/dL 03/10/2016 Comp Metabolic Nor518 B/ C Ratio 31.7 Ratio 03/10/2016 Comp Metabolic Wer994 CA LCIUM 9.7 mg/dL 03/10/2016 Comp Metabolic Ggk958 AL K PHOS 62 U/L 03/10/2016 Comp Metabolic Xyf472 T(SGOT) 17 U/L 03/10/2016 Comp Metabolic Lyq386 AL T(SGPT) 15 U/L 03/10/2016 Comp Metabolic Sqx560 BI LI T 0.6 mg/dL 03/10/2016 Comp Metabolic Cup453 AL BUMIN 4.4 g/dL 03/10/2016 Comp Metabolic Ths196 TP RO 7.0 g/dL 03/10/2016 Comp Metabolic Jzl778 GL OB 2.6 g/dL 03/10/2016 Comp Metabolic Kik299 A/ G Ratio 1.7 Ratio 03/10/2016 Comp Metabolic Yqi232 Os mo 277 mOsmo 03/10/2016 Lipid Ord30 [...] 30.4 pg 03/10/2016 Cbc With Differential Ord2 [place]% 7.9 % 03/10/2016 Cbc With Differential Ord2 [...] 2.44 K/ul 03/10/2016 Cbc With Differential Ord2 [place] ABS# 0.6 K/ul 03/10/2016 Cbc With Differential Ord2 Eos ABS# 0.1 K/ul 03/10/2016 Cbc With Differential Ord2 Baso ABS# 0.0 K/ul 03/10/2016 Lipid Ord30 CHOL 196 mg/dL 09/21/2015 Lipid Ord30 HDL 34.0 mg/dl 09/21/2015 Lipid Ord30 TRIG 190 mg/dL 09/21/2015 Lipid Ord30 LDL 124 mg/dL 09/21/2015 Lipid Ord30 C/HDL 5.8 Ratio 09/21/2015 %Hba1C Ghi567 % HbA1c 51968-3 5.8 % 09/21/2015 %Hba1C Hvh908 Gluc Ave 120 mg/dL 09/21/2015 Vitamin D 25 Oh Knt1971 VITAMIN D, 25 HYDROXY 32.62 ng/mL 09/21/2015 Comp Metabolic Ufb254 NA 139 mEq/L 09/21/2015 Comp Metabolic Oqp161 K 4.0 mEq/L 09/21/2015 Comp Metabolic Urw904 CL 101 mEq/L 09/21/2015 Comp Metabolic Mhq420 CO2 30.0 mEq/L 09/21/2015 Comp Metabolic Yjg201 AN ION GAP 12 09/21/2015 Comp Metabolic Fbs909 GL UCOSE 98 mg/dL 09/21/2015 Comp Metabolic Vww116 Cr eat 0.8 mg/dL 09/21/2015 Comp Metabolic Opi092 eG FR 81 ml/min/1.73m2 09/20 Comp Metabolic Vxp908 BUN 14 mg/dL 09/21/2015 Comp Metabolic Ebt830 B/ C Ratio 18.4 Ratio 09/21/2015 Comp Metabolic Zgg219 CA LCIUM 9.5 mg/dL 09/21/2015 Comp Metabolic Pgb427 AL K PHOS 57 U/L 09/21/2015 Comp Metabolic Thg340 T(SGOT) 12 U/L 09/21/2015 Comp Metabolic Phu716 AL T(SGPT) 10 U/L 09/21/2015 Comp Metabolic Mvn518 BI LI T 0.7 mg/dL 09/21/2015 Comp Metabolic Ckx181 AL BUMIN 4.2 g/dL 09/21/2015 Comp Metabolic Asj100 TP RO 6.7 g/dL 09/21/2015 Comp Metabolic Cdx156 GL OB 2.5 g/dL 09/21/2015 Comp Metabolic Sjq650 A/ G Ratio 1.7 Ratio 09/21/2015 Comp Metabolic Qbp625 Os mo 278 mOsmo 09/21/2015 Tsh Ord6 [...] 29.8 % 09/21/2015 Cbc With Differential Ord2 [place]% 8.7 % 09/21/2015 Cbc With Differential Ord2 [...] 2.33 K/ul 09/21/2015 Cbc With Differential Ord2 [place] ABS# 0.7 K/ul 09/21/2015 Cbc With Differential Ord2 Eos ABS# 0.1 K/ul 09/21/2015 Cbc With Differential Ord2 Baso ABS# 0.0 K/ul 09/21/2015 Cbc With Differential Ord2 New Analyzer Notice Please note new ref ranges s tarting 07-22-2015 due to implemntation of new five part differential hematolgy analyzer. 09/21/2015 Tsh Ord6 hTSH II 1.39 uIU/mL 01/16/2015 Comp Metabolic Bhl487 NA 137 mEq/L 01/16/2015 Comp Metabolic Ved010 K 4.3 mEq/L 01/16/2015 Comp Metabolic Yse395 CL 101 mEq/L 01/16/2015 Comp Metabolic Uau665 CO2 30.0 mEq/L 01/16/2015 Comp Metabolic Dgp407 AN ION GAP 10 01/16/2015 Comp Metabolic Kac600 GL UCOSE 111 mg/dL 01/16/2015 Comp Metabolic Vjs245 Cr eat 0.8 mg/dL 01/16/2015 Comp Metabolic Hoo858 eG FR 78 ml/min/1.73m2 01/16 Comp Metabolic Trr535 BUN 14 mg/dL 01/16/2015 Comp Metabolic Drj907 B/ C Ratio 17.7 Ratio 01/16/2015 Comp Metabolic Syg490 CA LCIUM 9.8 mg/dL 01/16/2015 Comp Metabolic Omf487 AL K PHOS 76 U/L 01/16/2015 Comp Metabolic Ojs731 T(SGOT) 12 U/L 01/16/2015 Comp Metabolic Hww225 AL T(SGPT) 11 U/L 01/16/2015 Comp Metabolic Gsi870 BI LI T 0.7 mg/dL 01/16/2015 Comp Metabolic Xud700 AL BUMIN 4.3 g/dL 01/16/2015 Comp Metabolic Hok356 TP RO 7.0 g/dL 01/16/2015 Comp Metabolic Wfe387 GL OB 2.7 g/dL 01/16/2015 Comp Metabolic Hzm004 A/ G Ratio 1.6 Ratio 01/16/2015 Comp Metabolic Bxv760 Os mo 275 mOsmo 01/16/2015 Vitamin D 25 Oh Ysy0956 VITAMIN D, 25 HYDROXY 19.37 ng/mL 01/16/2015 %Hba1C Kqy518 % HbA1c 22739-4 5.8 % 01/16/2015 %Hba1C Uqr935 Gluc Ave 120 mg/dL 01/16/2015 Cbc With [...] Result Effective Dates Constitutional No recent illness 05/30/2018 Constitutional No [...] 05/30/2018 ADMIN PNEUMOCOCCAL V ACCINE SNOMED CT: 86883681 CPT-4: G0009 05/30/2018 PNEUMOCOCCAL VACC [address]: 49997000 CPT-4: 08417 05/30/2018 Vital Signs Date Vital 05/30/2018 Blood Pressure 1: 132/70 Code: 8480-6 BMI: 37.6 Code: 82036-8 Heart Rate 1: 64 bpm Height: 5'4" SpO2: 96% Weight: 219 lbs 04/20/2017 Blood Pressure 1: 122/84 Code: 8480-6 BMI: 36.7 Code: 60327-1 Heart Rate 1: 75 bpm Height: 5'4" SpO2: 95% Weight: 214 lbs 03/10/2016 Blood Pressure 1: 120/86 Code: 8480-6 BMI: 36.6 Code: 87153-9 Heart Rate 1: 70 bpm Height: 5'4" SpO2: 96% Weight: 213 lbs 09/21/2015 Blood Pressure 1: 128/82 Code: 8480-6 BMI: 36.0 Code: 39518-8 Heart Rate 1: 74 bpm Height: 5'4" SpO2: 97% Weight: 210 lbs 07/23/2015 Blood Pressure 1: 120/80 Code: 8480-6 BMI: 36.7 Code: 96478-9 Heart Rate 1: 73 bpm Height: 5'4" SpO2: 96% Weight: 214 lbs 01/16/2015 Blood Pressure 1: 130/84 Code: 8480-6 BMI: 37.4 Code: 79054-2 Heart Rate 1: 60 bpm Height: 5'4" Weight: 218 lbs Functional Status No Functional Status data History of Present Illness Symptom Name Status Resu lt Effective Date Notes Annual Medicare Wellness Exam Alcohol Use drinks [...] Condition s cardiac disease 04/20/2017 dad from [place] age 49, brother also with heart attack [...] Condition s cardiac disease 03/10/2016 dad from [place] age 49, brother also with heart attack [...] Condition s cardiac disease 07/23/2015 dad from [place] age 49, brother also with heart attack hypertension Triggers no known associated factors 07/23/2015 None hypertension Alleviating Factors medication 07/23/2015 None hypertension Pertinent Findings Denies dizziness 07/23/2015 None hypertension Pertinent Findings Denies dyspnea 07/23/2015 None hypertension Pertinent Findings Denies edema 07/23/2015 None hypertension Onset and Resolution ongoing 01/16/2015 None hypertension Significant Medical Condition s cardiac disease 01/16/2015 dad from [place] age 49, brother also with heart attack [...] Encounters Encounter Performer Loca tion Codes Date ([id number]) 64521 EST. P ATIENT, LEVEL IV Diagnosis: Essential (primary) hypertension[ICD10: I10] Diagnosis: Mixed hyperlipidemia[ICD10: E78.2] Diagnosis: Vitamin D deficiency, unspecified[ICD10: E55.9] Diagnosis: Impaired fasting glucose[ICD10: R73.01] Jaycee Graves MD, [facility] CPT-4: 83684 04/20/2017 ([id number]) 04173 EST. P ATIENT, LEVEL IV Diagnosis: Essential (primary) hypertension[ICD10: I10] Diagnosis: Mixed hyperlipidemia[ICD10: E78.2] Diagnosis: Impaired fasting glucose[ICD10: R73.01] Diagnosis: Vitamin D deficiency, unspecified[ICD10: E55.9] Jaycee Graves MD, [facility] CPT-4: 13664 03/10/2016 ([id number]) 50208 EST. P ATIENT, LEVEL IV Diagnosis: Essential (primary) hypertension[ICD10: I10] Diagnosis: Mixed hyperlipidemia[ICD10: E78.2] Diagnosis: Vitamin D deficiency, unspecified[ICD10: E55.9] Diagnosis: Impaired fasting glucose[ICD10: R73.01] Diagnosis: Body mass index (BMI) 36.0-36.9, adult[ICD10: Z68.36] Jaycee Graves MD, [facility] CPT-4: 24616 09/21/2015 ([id number]) 49237 EST. P ATIENT, LEVEL IV Diagnosis: Essential (primary) hypertension[ICD10: I10] Diagnosis: Mixed hyperlipidemia[ICD10: E78.2] Diagnosis: Other abnormal glucose[ICD10: R73.09] Diagnosis: Morbid (severe) obesity due to excess calories[ICD10: E66.01] [facility] CPT-4: 33372 07/23/2015 ([id number]) OFFICE VISI ALEXANDRO Leong - LEVEL 3 Diagnosis: ESSENTIAL HYPERTENSION[ICD9: 401.9] Diagnosis: Hyperlipidemia[ICD9: 272.4] Diagnosis: Elevated blood sugar[ICD9: 790.29] Diagnosis: VITAMIN D DEFICIENCY[ICD9: 268.9] [facility] CPT- 4: 16389 01/16/2015 Plan of Care Planned Activity Notes C odes Status Date Visit Plan: Medicare Exam - today w [...] surrogate. 05/30/2018 [phone] [facility] [facility] - Annual Wellness Visit 05/30/2018 Patient [...] A1c 04/20/2017 [phone] [facility] (30 min) [facility] 04/20/2017 Patient Education: Patient Medication Summary Completed 04/20/2017 Patient Education: Obesity Completed 04/20/2017 Patient Education: Hypertension Completed 04/20/2017 Care Plan: Comp Metabolic Pending 04/20/2017 Care Plan: Cbc With Differential Pending 04/20/2017 Care Plan: %Hba1C LOIN C : 44607-8 Pending 04/20/2017 Care Plan: Tsh Pending 04/20/2017 Care Plan: Lipid Pending 04/20/2017 Care Plan: Vitamin D 25 Oh Pending 04/20/2017 Appointment: Lab Draw 08/17/2016 Appointment: Selene Roche WPtel: [phone] [facility] [facility] - Welcome to Medicare visit 07/28/2016 [...] Obesity Completed 03/10/2016 Appointment[facility]kechi Graves [facility] [facility] Complex 09/23/2015 Visit Plan: Hypertension [...] check. 07/23/2015 Appointment: Nkechi Graves WPtel: [phone] [facility] (15 min) Moderate 07/23/2015 App[facility]ment[phone] [facility] [facility] Complex 07/23/2015 Patient Education: Patient Medication Summary Completed 07/23/2015 Patient Education: Hypertension Completed 07/23/2015 Visit Plan: Hypertension - erica hieu madrigal - continue with current medications, continue [...] D deficiency-check labs Elevated glucose-check Hgb A1c . Hypertension - wel l controlled - [...]
--- OUTSIDE RECORDS SUMMARY | 2019-12-09 09:55 | XMS REPORT | CCD ---
Author Author Leigh Ann Trevino Organization Nkechi Graves MD, [facility] Address [address] [place] [address] Phone Care Team Providers Care Oyster Planter Name Role Phone PP Unavailable CCM Unavailable Summary Purpose Interface Exchange Insurance Providers Payer name Policy type / Coverage type Covered green party ID Effective Begin Date Effective End Date WPS Medicare Part B Medicare Part B [id number] Unknown [employer] Medicare Part B [id number] Unknown Family history Brother Diagnosis Age At Onset Heart Attack Unknown Mother Diagnosis Age At Onset Dementia Unknown Father Diagnosis Age At Onset Heart Attack Unknown Social History Social History Element Codes Description Effective Dates Marital status Unknown M amina [place] 01/16/2015 Number of children Unknown 2 01/16/2015 Employment Unknown Retir ed 01/16/[address]: 343995650 Never smoker 01/16/[address]: 512104 Currently drinks alcohol 01/16/2015 Allergies, Adverse Reactions, Alerts Substance Reaction Codes Entered Date Inactivated Date Status diarrhea Unknown 01/16/2015 No In active Date Active Penicillin Unknown 01/16/2015 No In active Date Active Past Medical History Illness Codes Condition Status Onset Date Resolved Date Encounter for genera l adult medical examination [...] Condition Codes Effectiv e Dates Condition Status Encounter for genera l adult medical examination [...] Date Stop Date Sta tus Fill Instructions hydrochlorothiazide 12.5 mg capsule RxNorm: TAKE ONE CAPSULE BY M OUTH DAILY 08/16/2017 08/10/2018 Ac tive irbesartan 150 mg ta blet RxNorm: 645707 TAKE ONE TABLET BY MO UTH DAILY 08/16/2017 08/10/2018 Ac tive propranolol 60 mg ta blet RxNorm: 996499 1 Tablet(s) PO BID TA KE ONE TABLET BY MOUTH TWICE A DAY 04/20/2017 07/13/2018 Active propranolol 60 mg ta blet RxNorm: 901723 TAKE ONE TABLET BY MO UTH TWICE A DAY 04/18/2017 04/19/2017 In active irbesartan 150 mg ta blet RxNorm: 558465 TAKE ONE TABLET BY MO UTH DAILY 10/31/2016 07/27/2017 In active hydrochlorothiazide 12.5 mg capsule RxNorm: TAKE ONE CAPSULE BY M OUTH DAILY 10/31/2016 07/27/2017 In active propranolol 60 mg ta blet RxNorm: 569398 TAKE ONE TABLET BY MO UTH TWICE A DAY 10/26/2016 01/23/2017 In active Zithromax Z-Andres 250 mg tablet RxNorm: 357991 1 Tablet(s) PO UD 08/17/2016 04/17/2017 Inactive z pack as directed propranolol 60 mg ta blet RxNorm: 841720 1 Tablet(s) PO BID 04/19/2016 04/18/2016 Inactive propranolol 60 mg ta blet RxNorm: 646389 1 Tablet(s) PO BID 04/19/2016 08/16/2016 Inactive Contrave 8 mg-90 mg tablet,extended release RxNorm: 7100287 2 Tablet(s) PO BID 09/21/2015 03/09/2016 In active propranolol ER 120 m g capsule,24 hr,extended release RxNorm: 377141 1 Capsule(s) PO daily 07/23/2015 04/18/2016 Inactive irbesartan 150 mg ta blet RxNorm: 922026 1 Tablet(s) PO daily 07/23/2015 07/16/2016 Inactive hydrochlorothiazide 12.5 mg capsule RxNorm: 1 Capsule(s) PO daily 07/23/2015 07/16/2016 In active PLEASE GIVE PT 90 ON ALL MEDICINES Vitamin D3 2,000 uni t capsule RxNorm: 477680 1 Capsule(s) PO daily 07/23/2015 09/23/2015 Inactive Belviq 10 mg tablet RxNorm: 6871037 1 Tablet(s) PO BID 07/23/2015 09/20/2015 Inactive Vitamin D2 50,000 un it capsule RxNorm: 036500 1 Capsule(s) PO weekl y and 2000u daily of vit d 01/16/2015 04/15/2015 Inactive and take 2000 u daily of Vi t D as well Vitamin D2 50,000 un it capsule RxNorm: 884897 1 Capsule(s) PO weekly 01/16/2015 01/15/2015 Inactive and take 2000 u daily of Vit D as well propranolol ER 120 m g capsule,24 hr,extended release RxNorm: 878363 1 Capsule(s) PO daily 01/16/2015 07/14/2015 Inactive hydrochlorothiazide 12.5 mg capsule RxNorm: 049069 1 Capsule(s) PO daily 01/16/2015 07/14/2015 In active PLEASE GIVE PT 90 ON ALL MEDICINES hydrochlorothiazide 12.5 mg capsule RxNorm: 607542 1 Capsule(s) PO daily 01/16/2015 01/15/2015 In active propranolol ER 120 m g capsule,24 hr,extended release RxNorm: 828532 1 Capsule(s) PO daily 01/16/2015 01/15/2015 Inactive irbesartan 150 mg ta blet RxNorm: 745081 1 Tablet(s) PO daily 01/16/2015 07/14/2015 Inactive irbesartan 150 mg ta blet RxNorm: 20000314 1 Tablet(s) PO daily 01/16/2015 01/15/2015 Inactive Vitamin D3 5,000 uni t tablet RxNorm: 749319 1 Tablet(s) PO daily No Start Date Active Zithromax Z-Andres 250 mg tablet RxNorm: 563946 1 Tablet(s) PO UD No Start Date 08/16/2016 Inactive z pack as directed irbesartan 150 mg ta blet RxNorm: 983032 1 Tablet(s) PO daily No Start Date 01/15/2015 Inactive Vitamin D3 2,000 uni t capsule RxNorm: 312374 1 Capsule(s) PO daily No Start Date 07/22/2015 Inactive propranolol ER 120 m g capsule,24 hr,extended release RxNorm: 168443 1 Capsule(s) PO daily No Start Date 01/15/2015 Inactive hydrochlorothiazide 12.5 mg capsule RxNorm: 392797 1 Capsule(s) PO daily No Start Date [...] 27.5 % 04/20/2017 Cbc With Differential Ord2 Warren% 7.2 % 04/20/2017 Cbc With Differential Ord2 MCH 30.5 pg 04/20/2017 Cbc With Differential Ord2 Eos% 1.2 % 04/20/2017 Cbc With Differential Ord2 MCHC 33.4 pg 04/20/2017 Cbc With Differential Ord2 PLT 279 K/ul 04/20/2017 Cbc With Differential Ord2 Baso% 0.5 % 04/20/2017 Cbc With Differential Ord2 RDW 13.4 % 04/20/2017 Cbc With Differential Ord2 Neut ABS# 5.11 K/ul 04/20/2017 Cbc With Differential Ord2 Lymph ABS# 2.21 K/ul 04/20/2017 Cbc With Differential Ord2 Warren ABS# 0.6 K/ul 04/20/2017 Cbc With Differential Ord2 Eos ABS# 0.1 K/ul 04/20/2017 Cbc With Differential Ord2 Baso ABS# 0.0 K/ul 04/20/2017 %Hba1C Gzg932 % HbA1c 39228-9 5.9 % 04/20/2017 %Hba1C Ipp873 Gluc Ave 123 mg/dL 04/20/2017 Vitamin D 25 Oh Ibc9356 VITAMIN D, 25 HYDROXY 53.49 ng/mL 04/20/2017 Comp Metabolic Utl001 NA 139 mEq/L 04/20/2017 Comp Metabolic Ydv514 K 4.4 mEq/L 04/20/2017 Comp Metabolic Njd233 CL 100 mEq/L 04/20/2017 Comp Metabolic Njm009 CO2 27.0 mEq/L 04/20/2017 Comp Metabolic Kyt404 AN ION GAP 16 04/20/2017 Comp Metabolic Xhi533 GL UCOSE 113 mg/dL 04/20/2017 Comp Metabolic Wdi728 Cr eat 0.8 mg/dL 04/20/2017 Comp Metabolic Qri981 eG FR 77 ml/min/1.73m2 04/20 Comp Metabolic Obb696 BUN 17 mg/dL 04/20/2017 Comp Metabolic Uio805 B/ C Ratio 21.5 Ratio 04/20/2017 Comp Metabolic Bcz582 CA LCIUM 9.9 mg/dL 04/20/2017 Comp Metabolic Vyc560 AL K PHOS 69 U/L 04/20/2017 Comp Metabolic Pjh210 T(SGOT) 16 U/L 04/20/2017 Comp Metabolic Lmp772 AL T(SGPT) 13 U/L 04/20/2017 Comp Metabolic Gng600 BI LI T 0.7 mg/dL 04/20/2017 Comp Metabolic Kzh977 AL BUMIN 4.6 g/dL 04/20/2017 Comp Metabolic Jhk228 TP RO 7.1 g/dL 04/20/2017 Comp Metabolic Hjs537 GL OB 2.6 g/dL 04/20/2017 Comp Metabolic Nuh948 A/ G Ratio 1.8 Ratio 04/20/2017 Comp Metabolic Jtm126 Os mo 280 mOsmo 04/20/2017 Quick Strep Eik4385 Quic k Strep Negative 08/17/2016 Influenza A+B Xps985 Inf anastacia A+B Negative 08/17/2016 Vitamin D 25 Oh Axs7052 VITAMIN D, 25 HYDROXY 43.92 ng/mL 03/11/2016 %Hba1C Xcm154 % HbA1c 95446-5 5.9 % 03/10/2016 %Hba1C Vke075 Gluc Ave 123 mg/dL 03/10/2016 Comp Metabolic Nqu830 NA 136 mEq/L 03/10/2016 Comp Metabolic Qvl997 K 4.1 mEq/L 03/10/2016 Comp Metabolic Ncq191 CL 100 mEq/L 03/10/2016 Comp Metabolic Tbi047 CO2 29.0 mEq/L 03/10/2016 Comp Metabolic Hhm769 AN ION GAP 11 03/10/2016 Comp Metabolic Cpa547 GL UCOSE 110 mg/dL 03/10/2016 Comp Metabolic Wzb512 Cr eat 0.8 mg/dL 03/10/2016 Comp Metabolic Szm310 eG FR 74 ml/min/1.73m2 03/10 Comp Metabolic Jlc116 BUN 26 mg/dL 03/10/2016 Comp Metabolic Mdf595 B/ C Ratio 31.7 Ratio 03/10/2016 Comp Metabolic Flx294 CA LCIUM 9.7 mg/dL 03/10/2016 Comp Metabolic Gly007 AL K PHOS 62 U/L 03/10/2016 Comp Metabolic Rfv700 T(SGOT) 17 U/L 03/10/2016 Comp Metabolic Xku805 AL T(SGPT) 15 U/L 03/10/2016 Comp Metabolic Eod713 BI LI T 0.6 mg/dL 03/10/2016 Comp Metabolic Tec093 AL BUMIN 4.4 g/dL 03/10/2016 Comp Metabolic Yru397 TP RO 7.0 g/dL 03/10/2016 Comp Metabolic Ojf030 GL OB 2.6 g/dL 03/10/2016 Comp Metabolic Dkj999 A/ G Ratio 1.7 Ratio 03/10/2016 Comp Metabolic Uyf461 Os mo 277 mOsmo 03/10/2016 Lipid Ord30 [...] 30.4 pg 03/10/2016 Cbc With Differential Ord2 Warren% 7.9 % 03/10/2016 Cbc With Differential Ord2 Eos% 1.4 % 03/10/2016 Cbc With Differential Ord2 MCHC 32.6 pg 03/10/2016 Cbc With Differential Ord2 PLT 198 K/ul 03/10/2016 Cbc With Differential Ord2 Baso% 0.4 % 03/10/2016 Cbc With Differential Ord2 Neut ABS# 4.68 K/ul 03/10/2016 Cbc With Differential Ord2 RDW 13.5 % 03/10/2016 Cbc With Differential Ord2 Lymph ABS# 2.44 K/ul 03/10/2016 Cbc With Differential Ord2 Warren ABS# 0.6 K/ul 03/10/2016 Cbc With Differential Ord2 Eos ABS# 0.1 K/ul 03/10/2016 Cbc With Differential Ord2 Baso ABS# 0.0 K/ul 03/10/2016 Lipid Ord30 CHOL 196 mg/dL 09/21/2015 Lipid Ord30 HDL 34.0 mg/dl 09/21/2015 Lipid Ord30 TRIG 190 mg/dL 09/21/2015 Lipid Ord30 LDL 124 mg/dL 09/21/2015 Lipid Ord30 C/HDL 5.8 Ratio 09/21/2015 %Hba1C Rya974 % HbA1c 08708-5 5.8 % 09/21/2015 %Hba1C Snf290 Gluc Ave 120 mg/dL 09/21/2015 Vitamin D 25 Oh Nyr0065 VITAMIN D, 25 HYDROXY 32.62 ng/mL 09/21/2015 Comp Metabolic Thg662 NA 139 mEq/L 09/21/2015 Comp Metabolic Vox444 K 4.0 mEq/L 09/21/2015 Comp Metabolic Szl236 CL 101 mEq/L 09/21/2015 Comp Metabolic Zbf537 CO2 30.0 mEq/L 09/21/2015 Comp Metabolic Kqu959 AN ION GAP 12 09/21/2015 Comp Metabolic Etf483 GL UCOSE 98 mg/dL 09/21/2015 Comp Metabolic Dgh135 Cr eat 0.8 mg/dL 09/21/2015 Comp Metabolic Mmu343 eG FR 81 ml/min/1.73m2 09/20 Comp Metabolic Utb908 BUN 14 mg/dL 09/21/2015 Comp Metabolic Kse761 B/ C Ratio 18.4 Ratio 09/21/2015 Comp Metabolic Hxm416 CA LCIUM 9.5 mg/dL 09/21/2015 Comp Metabolic Naq330 AL K PHOS 57 U/L 09/21/2015 Comp Metabolic Fue607 T(SGOT) 12 U/L 09/21/2015 Comp Metabolic Hrx911 AL T(SGPT) 10 U/L 09/21/2015 Comp Metabolic Npr164 BI LI T 0.7 mg/dL 09/21/2015 Comp Metabolic Rme648 AL BUMIN 4.2 g/dL 09/21/2015 Comp Metabolic Kzh393 TP RO 6.7 g/dL 09/21/2015 Comp Metabolic Bzb364 GL OB 2.5 g/dL 09/21/2015 Comp Metabolic Viu135 A/ G Ratio 1.7 Ratio 09/21/2015 Comp Metabolic Olf908 Os mo 278 mOsmo 09/21/2015 Tsh Ord6 [...] 29.8 % 09/21/2015 Cbc With Differential Ord2 Warren% 8.7 % 09/21/2015 Cbc With Differential Ord2 MCH 30.2 pg 09/21/2015 Cbc With Differential Ord2 Eos% 1.8 % 09/21/2015 Cbc With Differential Ord2 MCHC 32.4 pg 09/21/2015 Cbc With Differential Ord2 Baso% 0.5 % 09/21/2015 Cbc With Differential Ord2 PLT 248 K/ul 09/21/2015 Cbc With Differential Ord2 Neut ABS# 4.63 K/ul 09/21/2015 Cbc With Differential Ord2 RDW 13.4 % 09/21/2015 Cbc With Differential Ord2 Lymph ABS# 2.33 K/ul 09/21/2015 Cbc With Differential Ord2 Warren ABS# 0.7 K/ul 09/21/2015 Cbc With Differential Ord2 Eos ABS# 0.1 K/ul 09/21/2015 Cbc With Differential Ord2 Baso ABS# 0.0 K/ul 09/21/2015 Cbc With Differential Ord2 New Analyzer Notice Please note new ref ranges s tarting 07-22-2015 due to implemntation of new five part differential hematolgy analyzer. 09/21/2015 Tsh Ord6 hTSH II 1.39 uIU/mL 01/16/2015 Comp Metabolic Kno326 NA 137 mEq/L 01/16/2015 Comp Metabolic Zey128 K 4.3 mEq/L 01/16/2015 Comp Metabolic Bel537 CL 101 mEq/L 01/16/2015 Comp Metabolic Oim651 CO2 30.0 mEq/L 01/16/2015 Comp Metabolic Rqa586 AN ION GAP 10 01/16/2015 Comp Metabolic Odz250 GL UCOSE 111 mg/dL 01/16/2015 Comp Metabolic Qia265 Cr eat 0.8 mg/dL 01/16/2015 Comp Metabolic Wmu939 eG FR 78 ml/min/1.73m2 01/16 Comp Metabolic Suk918 BUN 14 mg/dL 01/16/2015 Comp Metabolic Qun693 B/ C Ratio 17.7 Ratio 01/16/2015 Comp Metabolic Gag936 CA LCIUM 9.8 mg/dL 01/16/2015 Comp Metabolic Rjk009 AL K PHOS 76 U/L 01/16/2015 Comp Metabolic Rek786 T(SGOT) 12 U/L 01/16/2015 Comp Metabolic Hup910 AL T(SGPT) 11 U/L 01/16/2015 Comp Metabolic Xxv340 BI LI T 0.7 mg/dL 01/16/2015 Comp Metabolic Nee764 AL BUMIN 4.3 g/dL 01/16/2015 Comp Metabolic Mhi196 TP RO 7.0 g/dL 01/16/2015 Comp Metabolic Lwg838 GL OB 2.7 g/dL 01/16/2015 Comp Metabolic Jkc877 A/ G Ratio 1.6 Ratio 01/16/2015 Comp Metabolic Lsu851 Os mo 275 mOsmo 01/16/2015 Vitamin D 25 Oh Rve7210 VITAMIN D, 25 HYDROXY 19.37 ng/mL 01/16/2015 %Hba1C Zsw563 % HbA1c 24783-1 5.8 % 01/16/2015 %Hba1C Dxw384 Gluc Ave 120 mg/dL 01/16/2015 Cbc With [...] 05/30/2018 ADMIN PNEUMOCOCCAL V ACCINE SNOMED CT: 47091646 CPT-4: G0009 05/30/2018 PNEUMOCOCCAL VACC [address]: 39769192 CPT-4: 93932 05/30/2018 Vital Signs Date Vital 05/30/2018 Blood Pressure 1: 132/70 Code: 8480-6 BMI: 37.6 Code: 93883-1 Heart Rate 1: 64 bpm Height: 5'4" SpO2: 96% Weight: 219 lbs 04/20/2017 Blood Pressure 1: 122/84 Code: 8480-6 BMI: 36.7 Code: 53140-2 Heart Rate 1: 75 bpm Height: 5'4" SpO2: 95% Weight: 214 lbs 03/10/2016 Blood Pressure 1: 120/86 Code: 8480-6 BMI: 36.6 Code: 85804-6 Heart Rate 1: 70 bpm Height: 5'4" SpO2: 96% Weight: 213 lbs 09/21/2015 Blood Pressure 1: 128/82 Code: 8480-6 BMI: 36.0 Code: 08037-9 Heart Rate 1: 74 bpm Height: 5'4" SpO2: 97% Weight: 210 lbs 07/23/2015 Blood Pressure 1: 120/80 Code: 8480-6 BMI: 36.7 Code: 52776-7 Heart Rate 1: 73 bpm Height: 5'4" SpO2: 96% Weight: 214 lbs 01/16/2015 Blood Pressure 1: 130/84 Code: 8480-6 BMI: 37.4 Code: 19686-7 Heart Rate 1: 60 bpm Height: 5'4" [...] Condition s cardiac disease 04/20/2017 dad from [place] age 49, brother also with heart attack [...] Condition s cardiac disease 03/10/2016 dad from [place] age 49, brother also with heart attack [...] Condition s cardiac disease 07/23/2015 dad from [place] age 49, brother also with heart attack hypertension Triggers no known associated factors 07/23/2015 None hypertension Alleviating Factors medication 07/23/2015 None hypertension Pertinent Findings Denies dizziness 07/23/2015 None hypertension Pertinent Findings Denies dyspnea 07/23/2015 None hypertension Pertinent Findings Denies edema 07/23/2015 None hypertension Onset and Resolution ongoing 01/16/2015 None hypertension Significant Medical Condition s cardiac disease 01/16/2015 dad from [place] age 49, brother also with heart attack [...] Encounters Encounter Performer Loca tion Codes Date ([id number]) [id number] EST. P ATIENT, LEVEL IV Diagnosis: Essential (primary) hypertension[ICD10: I10] Diagnosis: Mixed hyperlipidemia[ICD10: E78.2] Diagnosis: Vitamin D deficiency, unspecified[ICD10: E55.9] Diagnosis: Impaired fasting glucose[ICD10: R73.01] [facility] CPT-4: 99495 04/20/2017 ([id number]) 98290 EST. P ATIENT, LEVEL IV Diagnosis: Essential (primary) hypertension[ICD10: I10] Diagnosis: Mixed hyperlipidemia[ICD10: E78.2] Diagnosis: Impaired fasting glucose[ICD10: R73.01] Diagnosis: Vitamin D deficiency, unspecified[ICD10: E55.9] [facility] CPT-4: 63478 03/10/2016 [id number] [id number] EST. P ATIENT, LEVEL IV Diagnosis: Essential (primary) hypertension[ICD10: I10] Diagnosis: Mixed hyperlipidemia[ICD10: E78.2] Diagnosis: Vitamin D deficiency, unspecified[ICD10: E55.9] Diagnosis: Impaired fasting glucose[ICD10: R73.01] Diagnosis: Body mass index (BMI) 36.0-36.9, adult[ICD10: Z68.36] [facility] CPT-4: 48556 09/21/2015 [id number] EST. P ATIENT, LEVEL IV Diagnosis: Essential (primary) hypertension[ICD10: I10] Diagnosis: Mixed hyperlipidemia[ICD10: E78.2] Diagnosis: Other abnormal glucose[ICD10: R73.09] Diagnosis: Morbid (severe) obesity due to excess calories[ICD10: E66.01] Nkechi Graves MD, [facility] CPT-4: 62380 07/23/2015 ([id number]) OFFICE [facility] LEVEL 3 Diagnosis: ESSENTIAL HYPERTENSION[ICD9: 401.9] Diagnosis: Hyperlipidemia[ICD9: 272.4] Diagnosis: Elevated blood sugar[ICD9: 790.29] Diagnosis: VITAMIN D DEFICIENCY[ICD9: 268.9] Jaycee Graves MD, [facility] CPT- 4: 66566 01/16/2015 Plan of Care Planned Activity Notes C odes Status Date Appointment: Selene Roche WPtel: [facility] [place] [facility] [place] [facility] [facility] - Annual Wellness Visit 05/30/2018 Patient Education: Patient Medication Summary Completed 05/30/2018 Appointment: Jaycee Trevino WPtel: [address] [place], [place] [phone] (30 min) [facility] 04/20/2017 Patient Education: Patient Medication Summary Completed 04/20/2017 Patient Education: Obesity Completed 04/20/2017 Patient Education: Hypertension Completed 04/20/2017 Care Plan: Comp Metabolic Pending 04/20/2017 Care Plan: Cbc With Differential Pending 04/20/2017 Care Plan: %Hba1C LOIN C : 71868-4 Pending 04/20/2017 Care Plan: Tsh Pending 04/20/2017 Care Plan: Lipid Pending 04/20/2017 Care Plan: Vitamin D 25 Oh Pending 04/20/2017 Appointment: Lab Draw 08/17/2016 Appointment: Selene Roche [facility]el[facility] [phone] [facility] [facility] - Welcome to Medicare visit 07/28/2016 Patient Education: Patient Medication Summary Completed 03/10/2016 Patient Education: Obesity Completed 03/10/2016 Appointment: Nkechi Graves WPtel: [phone] [facility] (30 min) Complex 09/23/2015 Appointment: (30 min) Complex 09/21/2015 Patient Education: Patient Medication Summary Completed 09/21/2015 Patient Education: Obesity Completed 09/21/2015 Patient Education: Hypertension Completed 09/21/2015 Care Plan: BMI Above normal followup ANGELA F-MGMT EDUC & TRAIN 1 PT Ordered 09/21/2015 [facility] [phone] [facility] (15 min) Moderate 07/23/2015 Appointment: [facility] [phone] [facility] (30 min) Complex 07/23/2015 Patient Education: Patient Medication Summary Completed 07/23/2015 Patient Education: Hypertension Completed 07/23/2015 Appointment: (S) New Patient 01/16/2015 Patient Education: Patient Medication Summary Completed 01/16/2015 Patient Education: Hypertension Completed 01/16/2015 Instructions No Instructions
--- OUTSIDE RECORDS SUMMARY | 2019-12-09 09:56 | XMS REPORT | CCD ---
Author Author Leigh Ann Trevino Organization Nkechi Graves MD, [facility] Address [address] [place] [address] Phone Care Team Providers Care Long Term Care Social Worker Name Role Phone PP Unavailable CCM Unavailable Summary Purpose Interface Exchange Insurance Providers Payer name Policy type / Coverage type Covered constitution party ID Effective Begin Date Effective End Date WPS Medicare Part B Medicare Part B [id number] Unknown [employer] Medicare Part B [id number] Unknown Family history Brother Diagnosis Age At Onset Heart Attack Unknown Mother Diagnosis Age At Onset Dementia Unknown Father Diagnosis Age At Onset Heart Attack Unknown Social History Social History Element Codes Description Effective Dates Marital status Unknown M amina stanton 01/16/2015 Number of children Unknown 2 01/16/2015 Employment Unknown Retir ed 01/16/[address]: 360155036 Never smoker 01/16/[address]: 440527 Currently drinks alcohol 01/16/2015 Allergies, Adverse Reactions, [...] tive irbesartan 150 mg ta blet RxNorm: 303905 TAKE ONE TABLET BY MO UTH DAILY 08/16/2017 08/10/2018 Ac tive propranolol 60 mg ta blet RxNorm: 919282 1 Tablet(s) PO BID TA KE ONE TABLET BY MOUTH TWICE A DAY 04/20/2017 07/13/2018 Active propranolol 60 mg ta blet RxNorm: 087267 TAKE ONE TABLET BY MO UTH TWICE A DAY 04/18/2017 04/19/2017 In active irbesartan 150 mg ta blet RxNorm: 966089 TAKE ONE TABLET BY MO UTH DAILY 10/31/2016 07/27/2017 In active hydrochlorothiazide 12.5 mg capsule RxNorm: TAKE ONE CAPSULE BY M OUTH DAILY 10/31/2016 07/27/2017 In active propranolol 60 mg ta blet RxNorm: 028476 TAKE ONE TABLET BY MO UTH TWICE A DAY 10/26/2016 01/23/2017 In active Zithromax Z-Andres 250 mg tablet RxNorm: 924614 1 Tablet(s) PO UD 08/17/2016 04/17/2017 Inactive z pack as directed propranolol 60 mg ta blet RxNorm: 220126 1 Tablet(s) PO BID 04/19/2016 04/18/2016 Inactive propranolol 60 mg ta blet RxNorm: 829907 1 Tablet(s) PO BID 04/19/2016 08/16/2016 Inactive Contrave 8 mg-90 mg tablet,extended release RxNorm: 1222475 2 Tablet(s) PO BID 09/21/2015 03/09/2016 In active propranolol ER 120 m g capsule,24 hr,extended release RxNorm: 952645 1 Capsule(s) PO daily 07/23/2015 04/18/2016 Inactive irbesartan 150 mg ta blet RxNorm: 706693 1 Tablet(s) PO daily 07/23/2015 07/16/2016 Inactive hydrochlorothiazide 12.5 mg capsule RxNorm: 1 Capsule(s) PO daily 07/23/2015 07/16/2016 In active PLEASE GIVE PT 90 ON ALL MEDICINES Vitamin D3 2,000 uni t capsule RxNorm: 878854 1 Capsule(s) PO daily 07/23/2015 09/23/2015 Inactive Belviq 10 mg tablet RxNorm: 8840148 1 Tablet(s) PO BID 07/23/2015 09/20/2015 Inactive Vitamin D2 50,000 un it capsule RxNorm: 735367 1 Capsule(s) PO weekl y and 2000u daily of vit d 01/16/2015 04/15/2015 Inactive and take 2000 u daily of Vi t D as well Vitamin D2 50,000 un it capsule RxNorm: 208730 1 Capsule(s) PO weekly 01/16/2015 01/15/2015 Inactive and take 2000 u daily of Vit D as well propranolol ER 120 m g capsule,24 hr,extended release RxNorm: 414295 1 Capsule(s) PO daily 01/16/2015 07/14/2015 Inactive hydrochlorothiazide 12.5 mg capsule RxNorm: 151522 1 Capsule(s) PO daily 01/16/2015 07/14/2015 In active PLEASE GIVE PT 90 ON ALL MEDICINES hydrochlorothiazide 12.5 mg capsule RxNorm: 110639 1 Capsule(s) PO daily 01/16/2015 01/15/2015 In active propranolol ER 120 m g capsule,24 hr,extended release RxNorm: 495683 1 Capsule(s) PO daily 01/16/2015 01/15/2015 Inactive irbesartan 150 mg ta blet RxNorm: 493034 1 Tablet(s) PO daily 01/16/2015 07/14/2015 Inactive irbesartan 150 mg ta blet RxNorm: 20000314 1 Tablet(s) PO daily 01/16/2015 01/15/2015 Inactive Vitamin D3 5,000 uni t tablet RxNorm: 117442 1 Tablet(s) PO daily No Start Date Active Zithromax Z-Andres 250 mg tablet RxNorm: 856300 1 Tablet(s) PO UD No Start Date 08/16/2016 Inactive z pack as directed irbesartan 150 mg ta blet RxNorm: 210527 1 Tablet(s) PO daily No Start Date 01/15/2015 Inactive Vitamin D3 2,000 uni t capsule RxNorm: 255475 1 Capsule(s) PO daily No Start Date 07/22/2015 Inactive propranolol ER 120 m g capsule,24 hr,extended release RxNorm: 237886 1 Capsule(s) PO daily No Start Date 01/15/2015 Inactive hydrochlorothiazide 12.5 mg capsule RxNorm: 194125 1 Capsule(s) PO daily No Start Date 01/15/2015 Inactive Medication Administered No Medication Administered data Immunizations No Immunization data Assessments Condition Codes Effectiv e Dates Encounter [...] 27.5 % 04/20/2017 Cbc With Differential Ord2 [place]% 7.2 % 04/20/2017 Cbc With Differential Ord2 MCH 30.5 pg 04/20/2017 Cbc With Differential Ord2 Eos% 1.2 % 04/20/2017 Cbc With Differential Ord2 MCHC 33.4 pg 04/20/2017 Cbc With Differential Ord2 Baso% 0.5 % 04/20/2017 Cbc With Differential Ord2 PLT 279 K/ul 04/20/2017 Cbc With Differential Ord2 RDW 13.4 % 04/20/2017 Cbc With Differential Ord2 Neut ABS# 5.11 K/ul 04/20/2017 Cbc With Differential Ord2 Lymph ABS# 2.21 K/ul 04/20/2017 Cbc With Differential Ord2 [place] ABS# 0.6 K/ul 04/20/2017 Cbc With Differential Ord2 Eos ABS# 0.1 K/ul 04/20/2017 Cbc With Differential Ord2 Baso ABS# 0.0 K/ul 04/20/2017 %Hba1C Ajs506 % HbA1c 22511-9 5.9 % 04/20/2017 %Hba1C Jxv187 Gluc Ave 123 mg/dL 04/20/2017 Vitamin D 25 Oh Plf6602 VITAMIN D, 25 HYDROXY 53.49 ng/mL 04/20/2017 Comp Metabolic Kct182 NA 139 mEq/L 04/20/2017 Comp Metabolic Xge981 K 4.4 mEq/L 04/20/2017 Comp Metabolic Vrb928 CL 100 mEq/L 04/20/2017 Comp Metabolic Hyh314 CO2 27.0 mEq/L 04/20/2017 Comp Metabolic Ukw412 AN ION GAP 16 04/20/2017 Comp Metabolic Isg149 GL UCOSE 113 mg/dL 04/20/2017 Comp Metabolic Eds616 Cr eat 0.8 mg/dL 04/20/2017 Comp Metabolic Azb954 eG FR 77 ml/min/1.73m2 04/20 Comp Metabolic Kow643 BUN 17 mg/dL 04/20/2017 Comp Metabolic Dss045 B/ C Ratio 21.5 Ratio 04/20/2017 Comp Metabolic Vtf087 CA LCIUM 9.9 mg/dL 04/20/2017 Comp Metabolic Ujd603 AL K PHOS 69 U/L 04/20/2017 Comp Metabolic Swc123 T(SGOT) 16 U/L 04/20/2017 Comp Metabolic Nys114 AL T(SGPT) 13 U/L 04/20/2017 Comp Metabolic Vzu183 BI LI T 0.7 mg/dL 04/20/2017 Comp Metabolic Ycr727 AL BUMIN 4.6 g/dL 04/20/2017 Comp Metabolic Agq969 TP RO 7.1 g/dL 04/20/2017 Comp Metabolic Pcl778 GL OB 2.6 g/dL 04/20/2017 Comp Metabolic Vta962 A/ G Ratio 1.8 Ratio 04/20/2017 Comp Metabolic Pkr695 Os mo 280 mOsmo 04/20/2017 Quick Strep Yic8517 Quic k Strep Negative 08/17/2016 Influenza A+B Pla577 Inf anastacia A+B Negative 08/17/2016 Vitamin D 25 Oh Auv3087 VITAMIN D, 25 HYDROXY 43.92 ng/mL 03/11/2016 %Hba1C Gkc599 % HbA1c 77901-5 5.9 % 03/10/2016 %Hba1C Xcc910 Gluc Ave 123 mg/dL 03/10/2016 Comp Metabolic Oel001 NA 136 mEq/L 03/10/2016 Comp Metabolic Hlc081 K 4.1 mEq/L 03/10/2016 Comp Metabolic Ojy476 CL 100 mEq/L 03/10/2016 Comp Metabolic Gqc009 CO2 29.0 mEq/L 03/10/2016 Comp Metabolic Jsj427 AN ION GAP 11 03/10/2016 Comp Metabolic Eyj368 GL UCOSE 110 mg/dL 03/10/2016 Comp Metabolic Cme165 Cr eat 0.8 mg/dL 03/10/2016 Comp Metabolic Klv223 eG FR 74 ml/min/1.73m2 03/10 Comp Metabolic Hmk687 BUN 26 mg/dL 03/10/2016 Comp Metabolic Qvx583 B/ C Ratio 31.7 Ratio 03/10/2016 Comp Metabolic Iaq968 CA LCIUM 9.7 mg/dL 03/10/2016 Comp Metabolic Tox519 AL K PHOS 62 U/L 03/10/2016 Comp Metabolic Hsj785 T(SGOT) 17 U/L 03/10/2016 Comp Metabolic Oqs950 AL T(SGPT) 15 U/L 03/10/2016 Comp Metabolic Zru515 BI LI T 0.6 mg/dL 03/10/2016 Comp Metabolic Zac429 AL BUMIN 4.4 g/dL 03/10/2016 Comp Metabolic Uow189 TP RO 7.0 g/dL 03/10/2016 Comp Metabolic Jzw799 GL OB 2.6 g/dL 03/10/2016 Comp Metabolic Nue513 A/ G Ratio 1.7 Ratio 03/10/2016 Comp Metabolic Lyf110 Os mo 277 mOsmo 03/10/2016 Lipid Ord30 [...] 31.0 % 03/10/2016 Cbc With Differential Ord2 [place]% 7.9 % 03/10/2016 Cbc With Differential Ord2 MCH 30.4 pg 03/10/2016 Cbc With Differential Ord2 MCHC 32.6 pg 03/10/2016 Cbc With Differential Ord2 Eos% 1.4 % 03/10/2016 Cbc With Differential Ord2 Baso% 0.4 % 03/10/2016 Cbc With Differential Ord2 PLT 198 K/ul 03/10/2016 Cbc With Differential Ord2 RDW 13.5 % 03/10/2016 Cbc With Differential Ord2 Neut ABS# 4.68 K/ul 03/10/2016 Cbc With Differential Ord2 Lymph ABS# 2.44 K/ul 03/10/2016 Cbc With Differential Ord2 [place] ABS# 0.6 K/ul 03/10/2016 Cbc With Differential Ord2 Eos ABS# 0.1 K/ul 03/10/2016 Cbc With Differential Ord2 Baso ABS# 0.0 K/ul 03/10/2016 Lipid Ord30 CHOL 196 mg/dL 09/21/2015 Lipid Ord30 HDL 34.0 mg/dl 09/21/2015 Lipid Ord30 TRIG 190 mg/dL 09/21/2015 Lipid Ord30 LDL 124 mg/dL 09/21/2015 Lipid Ord30 C/HDL 5.8 Ratio 09/21/2015 %Hba1C Ofg863 % HbA1c 03542-3 5.8 % 09/21/2015 %Hba1C Dyv985 Gluc Ave 120 mg/dL 09/21/2015 Vitamin D 25 Oh Oww7326 VITAMIN D, 25 HYDROXY 32.62 ng/mL 09/21/2015 Comp Metabolic Ups500 NA 139 mEq/L 09/21/2015 Comp Metabolic Xfz888 K 4.0 mEq/L 09/21/2015 Comp Metabolic Iqq910 CL 101 mEq/L 09/21/2015 Comp Metabolic Vxn457 CO2 30.0 mEq/L 09/21/2015 Comp Metabolic Pry617 AN ION GAP 12 09/21/2015 Comp Metabolic Khn853 GL UCOSE 98 mg/dL 09/21/2015 Comp Metabolic Ngu231 Cr eat 0.8 mg/dL 09/21/2015 Comp Metabolic Brd807 eG FR 81 ml/min/1.73m2 09/20 Comp Metabolic Gji160 BUN 14 mg/dL 09/21/2015 Comp Metabolic Hod721 B/ C Ratio 18.4 Ratio 09/21/2015 Comp Metabolic Lez378 CA LCIUM 9.5 mg/dL 09/21/2015 Comp Metabolic Ren128 AL K PHOS 57 U/L 09/21/2015 Comp Metabolic Tjp221 T(SGOT) 12 U/L 09/21/2015 Comp Metabolic Yjk478 AL T(SGPT) 10 U/L 09/21/2015 Comp Metabolic Dhw152 BI LI T 0.7 mg/dL 09/21/2015 Comp Metabolic Iwx433 AL BUMIN 4.2 g/dL 09/21/2015 Comp Metabolic Sdv899 TP RO 6.7 g/dL 09/21/2015 Comp Metabolic Vsl113 GL OB 2.5 g/dL 09/21/2015 Comp Metabolic Osv374 A/ G Ratio 1.7 Ratio 09/21/2015 Comp Metabolic Lnt393 Os mo 278 mOsmo 09/21/2015 Tsh Ord6 [...] 30.2 pg 09/21/2015 Cbc With Differential Ord2 [place]% 8.7 % 09/21/2015 Cbc With Differential Ord2 MCHC 32.4 pg 09/21/2015 Cbc With Differential Ord2 Eos% 1.8 % 09/21/2015 Cbc With Differential Ord2 Baso% 0.5 % 09/21/2015 Cbc With Differential Ord2 PLT 248 K/ul 09/21/2015 Cbc With Differential Ord2 RDW 13.4 % 09/21/2015 Cbc With Differential Ord2 Neut ABS# 4.63 K/ul 09/21/2015 Cbc With Differential Ord2 Lymph ABS# 2.33 K/ul 09/21/2015 Cbc With Differential Ord2 [place] ABS# 0.7 K/ul 09/21/2015 Cbc With Differential Ord2 Eos ABS# 0.1 K/ul 09/21/2015 Cbc With Differential Ord2 Baso ABS# 0.0 K/ul 09/21/2015 Cbc With Differential Ord2 New Analyzer Notice Please note new ref ranges s tarting 07-22-2015 due to implemntation of new five part differential hematolgy analyzer. 09/21/2015 Tsh Ord6 hTSH II 1.39 uIU/mL 01/16/2015 Comp Metabolic Wxc291 NA 137 mEq/L 01/16/2015 Comp Metabolic Xjb916 K 4.3 mEq/L 01/16/2015 Comp Metabolic Sxg210 CL 101 mEq/L 01/16/2015 Comp Metabolic Lnm697 CO2 30.0 mEq/L 01/16/2015 Comp Metabolic Lyn875 AN ION GAP 10 01/16/2015 Comp Metabolic Csw133 GL UCOSE 111 mg/dL 01/16/2015 Comp Metabolic Tfr586 Cr eat 0.8 mg/dL 01/16/2015 Comp Metabolic Bln531 eG FR 78 ml/min/1.73m2 01/16 Comp Metabolic Hyp556 BUN 14 mg/dL 01/16/2015 Comp Metabolic Hyi820 B/ C Ratio 17.7 Ratio 01/16/2015 Comp Metabolic Ace838 CA LCIUM 9.8 mg/dL 01/16/2015 Comp Metabolic Lnx318 AL K PHOS 76 U/L 01/16/2015 Comp Metabolic Wqt366 T(SGOT) 12 U/L 01/16/2015 Comp Metabolic Xnm393 AL T(SGPT) 11 U/L 01/16/2015 Comp Metabolic Gqc999 BI LI T 0.7 mg/dL 01/16/2015 Comp Metabolic Abk484 AL BUMIN 4.3 g/dL 01/16/2015 Comp Metabolic Ucy917 TP RO 7.0 g/dL 01/16/2015 Comp Metabolic Nkz987 GL OB 2.7 g/dL 01/16/2015 Comp Metabolic Luq942 A/ G Ratio 1.6 Ratio 01/16/2015 Comp Metabolic Cec247 Os mo 275 mOsmo 01/16/2015 Vitamin D 25 Oh Mbg0137 VITAMIN D, 25 HYDROXY 19.37 ng/mL 01/16/2015 %Hba1C Ggp514 % HbA1c 52034-1 5.8 % 01/16/2015 %Hba1C Rmw716 Gluc Ave 120 mg/dL 01/16/2015 Cbc With [...] accomodation 01/16/2015 None Procedures Procedure Codes Date INITIAL PREVENTIVE EXAM CPT-4: G0402 05/30/2018 ADMIN PNEUMOCOCCAL V ACCINE SNOMED CT: 55991272 CPT-4: G0009 05/30/2018 PNEUMOCOCCAL VACC [address]: 07331707 CPT-4: 58046 05/30/2018 Vital Signs Date Vital 05/30/2018 Blood Pressure 1: 132/70 Code: 8480-6 BMI: 37.6 Code: 46202-5 Heart Rate 1: 64 bpm Height: 5'4" SpO2: 96% Weight: 219 lbs 04/20/2017 Blood Pressure 1: 122/84 Code: 8480-6 BMI: 36.7 Code: 14472-2 Heart Rate 1: 75 bpm Height: 5'4" SpO2: 95% Weight: 214 lbs 03/10/2016 Blood Pressure 1: 120/86 Code: 8480-6 BMI: 36.6 Code: 22210-9 Heart Rate 1: 70 bpm Height: 5'4" SpO2: 96% Weight: 213 lbs 09/21/2015 Blood Pressure 1: 128/82 Code: 8480-6 BMI: 36.0 Code: 86937-2 Heart Rate 1: 74 bpm Height: 5'4" SpO2: 97% Weight: 210 lbs 07/23/2015 Blood Pressure 1: 120/80 Code: 8480-6 BMI: 36.7 Code: 16282-2 Heart Rate 1: 73 bpm Height: 5'4" SpO2: 96% Weight: 214 lbs 01/16/2015 Blood Pressure 1: 130/84 Code: 8480-6 BMI: 37.4 Code: 12273-6 Heart Rate 1: 60 bpm Height: 5'4" [...] Encounters Encounter Performer Loca tion Codes Date ([id number]) [id number] EST. P ATIENT, LEVEL IV Diagnosis: Essential (primary) hypertension[ICD10: I10] Diagnosis: Mixed hyperlipidemia[ICD10: E78.2] Diagnosis: Vitamin D deficiency, unspecified[ICD10: E55.9] Diagnosis: Impaired fasting glucose[ICD10: R73.01] [facility] CPT-4: 96341 04/20/2017 ([id number]) [id number] EST. P ATIENT, LEVEL IV Diagnosis: Essential (primary) hypertension[ICD10: I10] Diagnosis: Mixed hyperlipidemia[ICD10: E78.2] Diagnosis: Impaired fasting glucose[ICD10: R73.01] Diagnosis: Vitamin D deficiency, unspecified[ICD10: E55.9] [facility] CPT-4: 24748 03/10/2016 ([id number] EST. P ATIENT, LEVEL IV Diagnosis: Essential (primary) hypertension[ICD10: I10] Diagnosis: Mixed hyperlipidemia[ICD10: E78.2] Diagnosis: Vitamin D deficiency, unspecified[ICD10: E55.9] Diagnosis: Impaired fasting glucose[ICD10: R73.01] Diagnosis: Body mass index (BMI) 36.0-36.9, adult[ICD10: Z68.36] Jaycee Graves MD, [facility] CPT-4: 43293 09/21/2015 ([id number] EST. P ATIENT, LEVEL IV Diagnosis: Essential (primary) hypertension[ICD10: I10] Diagnosis: Mixed hyperlipidemia[ICD10: E78.2] Diagnosis: Other abnormal glucose[ICD10: R73.09] Diagnosis: Morbid (severe) obesity due to excess calories[ICD10: E66.01] Nkechi Graves MD, [facility] CPT-4: 25345 07/23/2015 ([id number]) OFFICE [facility] LEVEL 3 Diagnosis: ESSENTIAL HYPERTENSION[ICD9: 401.9] Diagnosis: Hyperlipidemia[ICD9: 272.4] Diagnosis: Elevated blood sugar[ICD9: 790.29] Diagnosis: VITAMIN D DEFICIENCY[ICD9: 268.9] Jaycee Graves MD, [facility] CPT- 4: 27383 01/16/2015 Plan of Care Planned Activity Notes C odes Status Date Patient Education: Patient Medication Summary Completed 05/30/2018 Appointment: Jaycee Trevino WPtel: [address] [place], [place] [phone] (30 min) [facility] 04/20/2017 Patient Education: Patient Medication Summary Completed 04/20/2017 Patient Education: Obesity Completed 04/20/2017 Patient Education: Hypertension Completed 04/20/2017 Care Plan: Comp Metabolic Pending 04/20/2017 Care Plan: Cbc With Differential Pending 04/20/2017 Care Plan: %Hba1C LOIN C : 54028-2 Pending 04/20/2017 Care Plan: Tsh Pending 04/20/2017 Care Plan: Lipid Pending 04/20/2017 Care Plan: Vitamin D 25 Oh Pending 04/20/2017 Appointment: Lab Draw 08/17/2016 [facility]ment[facility] [phone] [id number] [facility] - Welcome to Medicare visit 07/28/2016 Patient Education: Patient Medication Summary Completed 03/10/2016 Patient Education: Obesity Completed 03/10/2016 Appointment: Nkechi Graves [facility]el[facility] [phone] [id number] (30 min) Complex 09/23/2015 Appointment: (30 min) Complex 09/21/2015 Patient Education: Patient Medication Summary Completed 09/21/2015 Patient Education: Obesity Completed 09/21/2015 Patient Education: Hypertension Completed 09/21/2015 Care Plan: BMI Above normal followup ANGELA F-MGMT EDUC & TRAIN 1 PT Ordered 09/21/2015 App[facility]ment: [facility] [phone] [id number] (15 min) Moderate 07/23/2015 Appointment: [facility]ke[facility] Graves [facility] [phone] [facility] (30 min) Complex 07/23/2015 Patient Education: Patient Medication Summary Completed 07/23/2015 Patient Education: Hypertension Completed 07/23/2015 Appointment: (S) New Patient 01/16/2015 Patient Education: Patient Medication Summary Completed 01/16/2015 Patient Education: Hypertension Completed 01/16/2015 Instructions No Instructions
--- OUTSIDE RECORDS SUMMARY | 2019-12-09 09:56 | XMS REPORT | CCD ---
Author Author Leigh Ann Trevino Organization Nkechi Graves MD, [facility] Address [address] [place] [address] Phone Care Team Providers Care Manager Quality Improvement Name Role Phone PP Unavailable CCM Unavailable Summary Purpose Interface Exchange Insurance Providers Payer name Policy type / Coverage type Covered green party ID Effective Begin Date Effective End Date WPS Medicare Part B Medicare Part B [id number] Unknown [employer] [place] Medicare Part B [id number] Unknown Family history Brother Diagnosis Age At Onset Heart Attack Unknown Mother Diagnosis Age At Onset Dementia Unknown Father Diagnosis Age At Onset Heart Attack Unknown Social History Social History Element Codes Description Effective Dates Marital status Unknown M amina stanton 01/16/2015 Number of children Unknown 2 01/16/2015 Employment Unknown Retir ed 01/16/[address]: 668469037 Never smoker 01/16/[address]: 561176 Currently drinks alcohol 01/16/2015 Allergies, Adverse Reactions, [...] tive irbesartan 150 mg ta blet RxNorm: 180789 TAKE ONE TABLET BY MO UTH DAILY 08/16/2017 08/10/2018 Ac tive propranolol 60 mg ta blet RxNorm: 684760 1 Tablet(s) PO BID TA KE ONE TABLET BY MOUTH TWICE A DAY 04/20/2017 07/13/2018 Active propranolol 60 mg ta blet RxNorm: 549143 TAKE ONE TABLET BY MO UTH TWICE A DAY 04/18/2017 04/19/2017 In active irbesartan 150 mg ta blet RxNorm: 787665 TAKE ONE TABLET BY MO UTH DAILY 10/31/2016 07/27/2017 In active hydrochlorothiazide 12.5 mg capsule RxNorm: TAKE ONE CAPSULE BY M OUTH DAILY 10/31/2016 07/27/2017 In active propranolol 60 mg ta blet RxNorm: 899285 TAKE ONE TABLET BY MO UTH TWICE A DAY 10/26/2016 01/23/2017 In active Zithromax Z-Andres 250 mg tablet RxNorm: 192808 1 Tablet(s) PO UD 08/17/2016 04/17/2017 Inactive z pack as directed propranolol 60 mg ta blet RxNorm: 173502 1 Tablet(s) PO BID 04/19/2016 04/18/2016 Inactive propranolol 60 mg ta blet RxNorm: 576810 1 Tablet(s) PO BID 04/19/2016 08/16/2016 Inactive Contrave 8 mg-90 mg tablet,extended release RxNorm: 0645693 2 Tablet(s) PO BID 09/21/2015 03/09/2016 In active propranolol ER 120 m g capsule,24 hr,extended release RxNorm: 816948 1 Capsule(s) PO daily 07/23/2015 04/18/2016 Inactive irbesartan 150 mg ta blet RxNorm: 230005 1 Tablet(s) PO daily 07/23/2015 07/16/2016 Inactive hydrochlorothiazide 12.5 mg capsule RxNorm: 1 Capsule(s) PO daily 07/23/2015 07/16/2016 In active PLEASE GIVE PT 90 ON ALL MEDICINES Vitamin D3 2,000 uni t capsule RxNorm: 979706 1 Capsule(s) PO daily 07/23/2015 09/23/2015 Inactive Belviq 10 mg tablet RxNorm: 0654592 1 Tablet(s) PO BID 07/23/2015 09/20/2015 Inactive Vitamin D2 50,000 un it capsule RxNorm: 849187 1 Capsule(s) PO weekl y and 2000u daily of vit d 01/16/2015 04/15/2015 Inactive and take 2000 u daily of Vi t D as well Vitamin D2 50,000 un it capsule RxNorm: 561095 1 Capsule(s) PO weekly 01/16/2015 01/15/2015 Inactive and take 2000 u daily of Vit D as well propranolol ER 120 m g capsule,24 hr,extended release RxNorm: 036702 1 Capsule(s) PO daily 01/16/2015 07/14/2015 Inactive hydrochlorothiazide 12.5 mg capsule RxNorm: 370596 1 Capsule(s) PO daily 01/16/2015 07/14/2015 In active PLEASE GIVE PT 90 ON ALL MEDICINES hydrochlorothiazide 12.5 mg capsule RxNorm: 720901 1 Capsule(s) PO daily 01/16/2015 01/15/2015 In active propranolol ER 120 m g capsule,24 hr,extended release RxNorm: 411949 1 Capsule(s) PO daily 01/16/2015 01/15/2015 Inactive irbesartan 150 mg ta blet RxNorm: 214317 1 Tablet(s) PO daily 01/16/2015 07/14/2015 Inactive irbesartan 150 mg ta blet RxNorm: 20000314 1 Tablet(s) PO daily 01/16/2015 01/15/2015 Inactive Vitamin D3 5,000 uni t tablet RxNorm: 039840 1 Tablet(s) PO daily No Start Date Active Zithromax Z-Andres 250 mg tablet RxNorm: 359182 1 Tablet(s) PO UD No Start Date 08/16/2016 Inactive z pack as directed irbesartan 150 mg ta blet RxNorm: 729430 1 Tablet(s) PO daily No Start Date 01/15/2015 Inactive Vitamin D3 2,000 uni t capsule RxNorm: 163003 1 Capsule(s) PO daily No Start Date 07/22/2015 Inactive propranolol ER 120 m g capsule,24 hr,extended release RxNorm: 536346 1 Capsule(s) PO daily No Start Date 01/15/2015 Inactive hydrochlorothiazide 12.5 mg capsule RxNorm: 721659 1 Capsule(s) PO daily No Start Date [...] 30.5 pg 04/20/2017 Cbc With Differential Ord2 [place]% 7.2 % 04/20/2017 Cbc With Differential Ord2 [...] 2.21 K/ul 04/20/2017 Cbc With Differential Ord2 [place] ABS# 0.6 K/ul 04/20/2017 Cbc With Differential Ord2 Eos ABS# 0.1 K/ul 04/20/2017 Cbc With Differential Ord2 Baso ABS# 0.0 K/ul 04/20/2017 %Hba1C Lhx735 % HbA1c 75053-0 5.9 % 04/20/2017 %Hba1C Skw124 Gluc Ave 123 mg/dL 04/20/2017 Vitamin D 25 Oh Joq4781 VITAMIN D, 25 HYDROXY 53.49 ng/mL 04/20/2017 Comp Metabolic Knx969 NA 139 mEq/L 04/20/2017 Comp Metabolic Xlw761 K 4.4 mEq/L 04/20/2017 Comp Metabolic Gqw378 CL 100 mEq/L 04/20/2017 Comp Metabolic Qmn794 CO2 27.0 mEq/L 04/20/2017 Comp Metabolic Ksm252 AN ION GAP 16 04/20/2017 Comp Metabolic Pyx385 GL UCOSE 113 mg/dL 04/20/2017 Comp Metabolic Zlm865 Cr eat 0.8 mg/dL 04/20/2017 Comp Metabolic Upt470 eG FR 77 ml/min/1.73m2 04/20 Comp Metabolic Muk303 BUN 17 mg/dL 04/20/2017 Comp Metabolic Vos679 B/ C Ratio 21.5 Ratio 04/20/2017 Comp Metabolic Ipv910 CA LCIUM 9.9 mg/dL 04/20/2017 Comp Metabolic Tco460 AL K PHOS 69 U/L 04/20/2017 Comp Metabolic Osm484 T(SGOT) 16 U/L 04/20/2017 Comp Metabolic Efj558 AL T(SGPT) 13 U/L 04/20/2017 Comp Metabolic Lle631 BI LI T 0.7 mg/dL 04/20/2017 Comp Metabolic Nyo897 AL BUMIN 4.6 g/dL 04/20/2017 Comp Metabolic Idf979 TP RO 7.1 g/dL 04/20/2017 Comp Metabolic Wlu930 GL OB 2.6 g/dL 04/20/2017 Comp Metabolic Cmn752 A/ G Ratio 1.8 Ratio 04/20/2017 Comp Metabolic Lem536 Os mo 280 mOsmo 04/20/2017 Quick Strep Uhv3982 Quic k Strep Negative 08/17/2016 Influenza A+B Rol352 Inf anastacia A+B Negative 08/17/2016 Vitamin D 25 Oh Lan9240 VITAMIN D, 25 HYDROXY 43.92 ng/mL 03/11/2016 %Hba1C Pvs205 % HbA1c 59112-4 5.9 % 03/10/2016 %Hba1C Jol916 Gluc Ave 123 mg/dL 03/10/2016 Comp Metabolic Nab322 NA 136 mEq/L 03/10/2016 Comp Metabolic Fqi021 K 4.1 mEq/L 03/10/2016 Comp Metabolic Wcw499 CL 100 mEq/L 03/10/2016 Comp Metabolic Jnl440 CO2 29.0 mEq/L 03/10/2016 Comp Metabolic Qrb417 AN ION GAP 11 03/10/2016 Comp Metabolic Pvp991 GL UCOSE 110 mg/dL 03/10/2016 Comp Metabolic Ipg867 Cr eat 0.8 mg/dL 03/10/2016 Comp Metabolic Eak775 eG FR 74 ml/min/1.73m2 03/10 Comp Metabolic Bvu865 BUN 26 mg/dL 03/10/2016 Comp Metabolic Oxo694 B/ C Ratio 31.7 Ratio 03/10/2016 Comp Metabolic Nkk544 CA LCIUM 9.7 mg/dL 03/10/2016 Comp Metabolic Ifb734 AL K PHOS 62 U/L 03/10/2016 Comp Metabolic Aha077 T(SGOT) 17 U/L 03/10/2016 Comp Metabolic Jrv932 AL T(SGPT) 15 U/L 03/10/2016 Comp Metabolic Rbn885 BI LI T 0.6 mg/dL 03/10/2016 Comp Metabolic Axg088 AL BUMIN 4.4 g/dL 03/10/2016 Comp Metabolic Zny861 TP RO 7.0 g/dL 03/10/2016 Comp Metabolic Lxn892 GL OB 2.6 g/dL 03/10/2016 Comp Metabolic Liv865 A/ G Ratio 1.7 Ratio 03/10/2016 Comp Metabolic Rfm154 Os mo 277 mOsmo 03/10/2016 Lipid Ord30 [...] 59.3 % 03/10/2016 Cbc With Differential Ord2 Lymph% 31.0 % 03/10/2016 Cbc With Differential Ord2 MCV 93.2 fl 03/10/2016 Cbc With Differential Ord2 MCH 30.4 pg 03/10/2016 Cbc With Differential Ord2 [place]% 7.9 % 03/10/2016 Cbc With Differential Ord2 [...] 2.44 K/ul 03/10/2016 Cbc With Differential Ord2 [place] ABS# 0.6 K/ul 03/10/2016 Cbc With Differential Ord2 Eos ABS# 0.1 K/ul 03/10/2016 Cbc With Differential Ord2 Baso ABS# 0.0 K/ul 03/10/2016 Lipid Ord30 CHOL 196 mg/dL 09/21/2015 Lipid Ord30 HDL 34.0 mg/dl 09/21/2015 Lipid Ord30 TRIG 190 mg/dL 09/21/2015 Lipid Ord30 LDL 124 mg/dL 09/21/2015 Lipid Ord30 C/HDL 5.8 Ratio 09/21/2015 %Hba1C Nbt425 % HbA1c 04871-8 5.8 % 09/21/2015 %Hba1C Dhr871 Gluc Ave 120 mg/dL 09/21/2015 Vitamin D 25 Oh Eqn1105 VITAMIN D, 25 HYDROXY 32.62 ng/mL 09/21/2015 Comp Metabolic Gcw775 NA 139 mEq/L 09/21/2015 Comp Metabolic Ewm531 K 4.0 mEq/L 09/21/2015 Comp Metabolic Qyx701 CL 101 mEq/L 09/21/2015 Comp Metabolic Byz150 CO2 30.0 mEq/L 09/21/2015 Comp Metabolic Fko928 AN ION GAP 12 09/21/2015 Comp Metabolic Ujq977 GL UCOSE 98 mg/dL 09/21/2015 Comp Metabolic Fyc451 Cr eat 0.8 mg/dL 09/21/2015 Comp Metabolic Zqf241 eG FR 81 ml/min/1.73m2 09/20 Comp Metabolic Jrk086 BUN 14 mg/dL 09/21/2015 Comp Metabolic Yui102 B/ C Ratio 18.4 Ratio 09/21/2015 Comp Metabolic Cqk125 CA LCIUM 9.5 mg/dL 09/21/2015 Comp Metabolic Fbo614 AL K PHOS 57 U/L 09/21/2015 Comp Metabolic Kxc993 T(SGOT) 12 U/L 09/21/2015 Comp Metabolic Cfj805 AL T(SGPT) 10 U/L 09/21/2015 Comp Metabolic Emf925 BI LI T 0.7 mg/dL 09/21/2015 Comp Metabolic Gpl268 AL BUMIN 4.2 g/dL 09/21/2015 Comp Metabolic Gvm549 TP RO 6.7 g/dL 09/21/2015 Comp Metabolic Opi039 GL OB 2.5 g/dL 09/21/2015 Comp Metabolic Qms008 A/ G Ratio 1.7 Ratio 09/21/2015 Comp Metabolic Kfn305 Os mo 278 mOsmo 09/21/2015 Tsh Ord6 [...] 29.8 % 09/21/2015 Cbc With Differential Ord2 [place]% 8.7 % 09/21/2015 Cbc With Differential Ord2 [...] 2.33 K/ul 09/21/2015 Cbc With Differential Ord2 [place] ABS# 0.7 K/ul 09/21/2015 Cbc With Differential Ord2 Eos ABS# 0.1 K/ul 09/21/2015 Cbc With Differential Ord2 Baso ABS# 0.0 K/ul 09/21/2015 Cbc With Differential Ord2 New Analyzer Notice Please note new ref ranges s tarting 07-22-2015 due to implemntation of new five part differential hematolgy analyzer. 09/21/2015 Tsh Ord6 hTSH II 1.39 uIU/mL 01/16/2015 Comp Metabolic Ogo227 NA 137 mEq/L 01/16/2015 Comp Metabolic Rqn798 K 4.3 mEq/L 01/16/2015 Comp Metabolic Ijf837 CL 101 mEq/L 01/16/2015 Comp Metabolic Cdr904 CO2 30.0 mEq/L 01/16/2015 Comp Metabolic Uid403 AN ION GAP 10 01/16/2015 Comp Metabolic Hqm118 GL UCOSE 111 mg/dL 01/16/2015 Comp Metabolic Xyj961 Cr eat 0.8 mg/dL 01/16/2015 Comp Metabolic Bhv016 eG FR 78 ml/min/1.73m2 01/16 Comp Metabolic Buh670 BUN 14 mg/dL 01/16/2015 Comp Metabolic Ozr020 B/ C Ratio 17.7 Ratio 01/16/2015 Comp Metabolic Qmb122 CA LCIUM 9.8 mg/dL 01/16/2015 Comp Metabolic Xfp924 AL K PHOS 76 U/L 01/16/2015 Comp Metabolic Mvy530 T(SGOT) 12 U/L 01/16/2015 Comp Metabolic Kxq493 AL T(SGPT) 11 U/L 01/16/2015 Comp Metabolic Jln244 BI LI T 0.7 mg/dL 01/16/2015 Comp Metabolic Ryn191 AL BUMIN 4.3 g/dL 01/16/2015 Comp Metabolic Bhb600 TP RO 7.0 g/dL 01/16/2015 Comp Metabolic Bte961 GL OB 2.7 g/dL 01/16/2015 Comp Metabolic Hud787 A/ G Ratio 1.6 Ratio 01/16/2015 Comp Metabolic Wwm542 Os mo 275 mOsmo 01/16/2015 Vitamin D 25 Oh Ryh4031 VITAMIN D, 25 HYDROXY 19.37 ng/mL 01/16/2015 %Hba1C Xij603 % HbA1c 92745-0 5.8 % 01/16/2015 %Hba1C Sfh947 Gluc Ave 120 mg/dL 01/16/2015 Cbc With [...] 05/30/2018 ADMIN PNEUMOCOCCAL V ACCINE SNOMED CT: 37866984 CPT-4: G0009 05/30/2018 PNEUMOCOCCAL VACC [address]: 23570884 CPT-4: 78035 05/30/2018 Vital Signs Date Vital 05/30/2018 Blood Pressure 1: 132/70 Code: 8480-6 BMI: 37.6 Code: 35951-4 Heart Rate 1: 64 bpm Height: 5'4" SpO2: 96% Weight: 219 lbs 04/20/2017 Blood Pressure 1: 122/84 Code: 8480-6 BMI: 36.7 Code: 00190-7 Heart Rate 1: 75 bpm Height: 5'4" SpO2: 95% Weight: 214 lbs 03/10/2016 Blood Pressure 1: 120/86 Code: 8480-6 BMI: 36.6 Code: 79450-7 Heart Rate 1: 70 bpm Height: 5'4" SpO2: 96% Weight: 213 lbs 09/21/2015 Blood Pressure 1: 128/82 Code: 8480-6 BMI: 36.0 Code: 35910-4 Heart Rate 1: 74 bpm Height: 5'4" SpO2: 97% Weight: 210 lbs 07/23/2015 Blood Pressure 1: 120/80 Code: 8480-6 BMI: 36.7 Code: 52357-7 Heart Rate 1: 73 bpm Height: 5'4" SpO2: 96% Weight: 214 lbs 01/16/2015 Blood Pressure 1: 130/84 Code: 8480-6 BMI: 37.4 Code: 03465-4 Heart Rate 1: 60 bpm Height: 5'4" [...] Condition s cardiac disease 04/20/2017 dad from [place] age 49, brother also with heart attack [...] Condition s cardiac disease 03/10/2016 dad from [place] age 49, brother also with heart attack [...] Condition s cardiac disease 07/23/2015 dad from [place] age 49, brother also with heart attack hypertension Triggers no known associated factors 07/23/2015 None hypertension Alleviating Factors medication 07/23/2015 None hypertension Pertinent Findings Denies dizziness 07/23/2015 None hypertension Pertinent Findings Denies dyspnea 07/23/2015 None hypertension Pertinent Findings Denies edema 07/23/2015 None hypertension Onset and Resolution ongoing 01/16/2015 None hypertension Significant Medical Condition s cardiac disease 01/16/2015 dad from [place] age 49, brother also with heart attack [...] Encounters Encounter Performer Loca tion Codes Date ([id number]) 98426 EST. P ATIENT, LEVEL IV Diagnosis: Essential (primary) hypertension[ICD10: I10] Diagnosis: Mixed hyperlipidemia[ICD10: E78.2] Diagnosis: Vitamin D deficiency, unspecified[ICD10: E55.9] Diagnosis: Impaired fasting glucose[ICD10: R73.01] [facility] CPT-4: 88493 04/20/2017 ([id number]) 95298 EST. P ATIENT, LEVEL IV Diagnosis: Essential (primary) hypertension[ICD10: I10] Diagnosis: Mixed hyperlipidemia[ICD10: E78.2] Diagnosis: Impaired fasting glucose[ICD10: R73.01] Diagnosis: Vitamin D deficiency, unspecified[ICD10: E55.9] [facility] CPT-4: 97468 03/10/2016 ([id number]) 52375 EST. P ATIENT, LEVEL IV Diagnosis: Essential (primary) hypertension[ICD10: I10] Diagnosis: Mixed hyperlipidemia[ICD10: E78.2] Diagnosis: Vitamin D deficiency, unspecified[ICD10: E55.9] Diagnosis: Impaired fasting glucose[ICD10: R73.01] Diagnosis: Body mass index (BMI) 36.0-36.9, adult[ICD10: Z68.36] Jaycee Graves MD, [facility] CPT-4: 50951 09/21/2015 ([id number]) 41037 EST. P ATIENT, LEVEL IV Diagnosis: Essential (primary) hypertension[ICD10: I10] Diagnosis: Mixed hyperlipidemia[ICD10: E78.2] Diagnosis: Other abnormal glucose[ICD10: R73.09] Diagnosis: Morbid (severe) obesity due to excess calories[ICD10: E66.01] Nkechi Graves MD, [facility] CPT-4: 86046 07/23/2015 ([id number]) OFFICE [facility] - LEVEL 3 Diagnosis: ESSENTIAL HYPERTENSION[ICD9: 401.9] Diagnosis: Hyperlipidemia[ICD9: 272.4] Diagnosis: Elevated blood sugar[ICD9: 790.29] Diagnosis: VITAMIN D DEFICIENCY[ICD9: 268.9] Jaycee Graves MD, [facility] CPT- 4: 40143 01/16/2015 Plan of Care Planned Activity Notes [...] DOPA paperwork for health care surrogate. 05/30/2018 Patient Education: Patient Medication Summary Completed [...] Hgb A1c 04/20/2017 Appointment: Jaycee Trevino WPtel: [id number] [place] [address] (30 min) Complex 04/20/2017 Patient Education: Patient Medication Summary Completed 04/20/2017 Patient Education: Obesity Completed 04/20/2017 Patient Education: Hypertension Completed 04/20/2017 Care Plan: Comp Metabolic Pending 04/20/2017 Care Plan: Cbc With Differential Pending 04/20/2017 Care Plan: %Hba1C LOIN C : 49234-6 Pending 04/20/2017 Care Plan: Tsh Pending 04/20/2017 Care Plan: Lipid Pending 04/20/2017 Care Plan: Vitamin D 25 Oh Pending 04/20/2017 Appointment: Lab Draw 08/17/2016 Appointment: Sel[facility] Roche [facility]el[facility] [facility] - Welcome to Medicare visit 07/28/2016 Visit [...] Completed 03/10/2016 App[facility]ment[facility]ke[facility] Graves [phone] [facility] (30 min) Complex 09/23/2015 Visit Plan: Hypertension [...] check. 07/23/2015 Appointment: Nkechi Graves WPtel: [phone] [facility] (15 min) Moderate 07/23/2015 Appointment: Nkechi Graves WPtel: [phone] [facility] (30 min) Complex 07/23/2015 Patient Education: Patient Medication Summary Completed 07/23/2015 Patient Education: Hypertension Completed 07/23/2015 Visit Plan: Hypertension - well hieu madrigal - continue with current medications, [...]
--- OUTSIDE RECORDS SUMMARY | 2019-12-09 09:57 | XMS REPORT | Continuity of Care Document ---
Author Organization Unknown Address Unknown Phone Unavailable Allergies Active Description Code Type Severity Reaction Onset Reported/Identified Relationship to Patient Clinical Status Yes Penicillins Drug Allergy 03/16/2012 Yes Penicillins Drug Allergy N/A N/A 03/16/2012 Medications There is no data. Problems Date Dx Coded Attending Type Code Diagnosis Diagnosed By 03/16/2012 MISHA STEWART APRNYL A 461.9 SINUSITIS ACUTE 03/16/2012 PAT SENIOR TELECOMMUNICATIONS CONSULTANT, DE A 786.2 COUGH 03/16/2012 ABBYE SENIOR TELECOMMUNICATIONS CONSULTANT, DE A 461.9 SINUSITIS ACUTE 03/16/2012 PAT SENIOR TELECOMMUNICATIONS CONSULTANT, DE A 786.2 COUGH 03/16/2012 461.9 SINU SITIS ACUTE 03/16/2012 786.2 COUGH 05/18/2012 HUBERTBRODY NAVA, DE A V04.81 FLU DX (3 YRS AND ABOVE, IM) 05/18/2012 ABBYE ELIJAH, DE A V05.8 ZOSTAVAX DX 05/18/2012 HUBERTVEROE SENIOR TELECOMMUNICATIONS CONSULTANT, DE A V04.81 FLU DX (3 YRS AND ABOVE, IM) 05/18/2012 ABBYE SENIOR TELECOMMUNICATIONS CONSULTANT, DE A V05.8 ZOSTAVAX DX 05/18/2012 V04.81 FLU DX (3 YRS AND ABOVE, IM) 05/18/2012 V05.8 ZOST AVAX DX 11/18/2013 HUBERTBRODY NAVA DE A 381.81 EUSTACHIAN TUBE DYSFUNCTION Procedures There is no data. Results There is no data. Encounters ACCT No. Visit Date/Time Discharge Status Pt. Type Provider Facility Loc./Unit Complaint [id number] 04/20/2017 09:21:29 04/20/2017 23:59:5 9 CLS Outpatient [id number] 11/18/2013 13:38:00 11/18/2013 23:59: 59 CLS Outpatient DE STEWART APRN [id number] 05/06/2013 09:40:00 05/06/2013 23:59: 59 CLS Outpatient DE STEWART APRN [id number] 05/18/2012 15:28:00 05/18/2012 23:59:5 9 CLS Outpatient [id number] 01/27/2014 14:21:00 23:59:59 CLS Outpatient [id number] 01/21/2014 06:47:00 09:50:00 DIS Outpatient [id number] 01/16/2014 07:37:00 23:59:59 CLS Outpatient [id number] 01/07/2014 10:38:00 23:59:59 CLS Outpatient
--- OUTSIDE RECORDS SUMMARY | 2019-12-09 09:57 | XMS REPORT | CCD ---
Author Author Leigh Ann Trevino Organization Nkechi Graves MD, [facility] Address [address] [place] [address] Phone Care Team Providers Care Veterinary Livestock Inspector Name Role Phone PP Unavailable CCM Unavailable Summary Purpose Interface Exchange Insurance Providers Payer name Policy type / Coverage type Covered constitution party ID Effective Begin Date Effective End Date WPS Medicare Part B Medicare Part B [id number] Unknown [employer] Medicare Part B [id number] Unknown Family history Brother Diagnosis Age At Onset Heart Attack Unknown Mother Diagnosis Age At Onset Dementia Unknown Father Diagnosis Age At Onset Heart Attack Unknown Social History Social History Element Codes Description Effective Dates Marital status Unknown M amina stanton 01/16/2015 Number of children Unknown 2 01/16/2015 Employment Unknown Retir ed 01/16/[address]: 683904626 Never smoker 01/16/[address]: 904233 Currently drinks alcohol 01/16/2015 Allergies, Adverse Reactions, Alerts Substance Reaction Codes Entered Date Inactivated Date Status diarrhea Unknown 01/16/2015 No In active Date Active Past Medical History Illness Codes Condition Status Onset Date Resolved Date Essential (primary) hypertension ICD-9: 401.9 ICD-10: I10 [...] Condition Codes Effectiv e Dates Condition Status Essential (primary) hypertension ICD-9: 401.9 ICD-10: I10 [...] Fill Instructions hydrochlorothiazide 12.5 mg capsule RxNorm: 841376 TAKE ONE CAPSULE BY M OUTH DAILY 08/16/2017 08/10/2018 Ac tive irbesartan 150 mg ta blet RxNorm: 803448 TAKE ONE TABLET BY MO UTH DAILY 08/16/2017 08/10/2018 Ac tive propranolol 60 mg ta blet RxNorm: 009003 1 Tablet(s) PO BID TA KE ONE TABLET BY MOUTH TWICE A DAY 04/20/2017 07/13/2018 Active propranolol 60 mg ta blet RxNorm: 225259 TAKE ONE TABLET BY MO UTH TWICE A DAY 04/18/2017 04/19/2017 In active irbesartan 150 mg ta blet RxNorm: 808854 TAKE ONE TABLET BY MO UTH DAILY 10/31/2016 07/27/2017 In active hydrochlorothiazide 12.5 mg capsule RxNorm: TAKE ONE CAPSULE BY M OUTH DAILY 10/31/2016 07/27/2017 In active propranolol 60 mg ta blet RxNorm: 471133 TAKE ONE TABLET BY MO UTH TWICE A DAY 10/26/2016 01/23/2017 In active Zithromax Z-Andres 250 mg tablet RxNorm: 314023 1 Tablet(s) PO UD 08/17/2016 04/17/2017 Inactive z pack as directed propranolol 60 mg ta blet RxNorm: 112932 1 Tablet(s) PO BID 04/19/2016 04/18/2016 Inactive propranolol 60 mg ta blet RxNorm: 982580 1 Tablet(s) PO BID 04/19/2016 08/16/2016 Inactive Contrave 8 mg-90 mg tablet,extended release RxNorm: 4124903 2 Tablet(s) PO BID 09/21/2015 03/09/2016 In active propranolol ER 120 m g capsule,24 hr,extended release RxNorm: 511835 1 Capsule(s) PO daily 07/23/2015 04/18/2016 Inactive irbesartan 150 mg ta blet RxNorm: 057811 1 Tablet(s) PO daily 07/23/2015 07/16/2016 Inactive hydrochlorothiazide 12.5 mg capsule RxNorm: 1 Capsule(s) PO daily 07/23/2015 07/16/2016 In active PLEASE GIVE PT 90 ON ALL MEDICINES Vitamin D3 2,000 uni t capsule RxNorm: 470423 1 Capsule(s) PO daily 07/23/2015 09/23/2015 Inactive Belviq 10 mg tablet RxNorm: 7485143 1 Tablet(s) PO BID 07/23/2015 09/20/2015 Inactive Vitamin D2 50,000 un it capsule RxNorm: 332692 1 Capsule(s) PO weekl y and 2000u daily of vit d 01/16/2015 04/15/2015 Inactive and take 2000 u daily of Vi t D as well Vitamin D2 50,000 un it capsule RxNorm: 695305 1 Capsule(s) PO weekly 01/16/2015 01/15/2015 Inactive and take 2000 u daily of Vit D as well propranolol ER 120 m g capsule,24 hr,extended release RxNorm: 959759 1 Capsule(s) PO daily 01/16/2015 07/14/2015 Inactive hydrochlorothiazide 12.5 mg capsule RxNorm: 824201 1 Capsule(s) PO daily 01/16/2015 07/14/2015 In active PLEASE GIVE PT 90 ON ALL MEDICINES hydrochlorothiazide 12.5 mg capsule RxNorm: 779507 1 Capsule(s) PO daily 01/16/2015 01/15/2015 In active propranolol ER 120 m g capsule,24 hr,extended release RxNorm: 851147 1 Capsule(s) PO daily 01/16/2015 01/15/2015 Inactive irbesartan 150 mg ta blet RxNorm: 20000314 1 Tablet(s) PO daily 01/16/2015 07/14/2015 Inactive irbesartan 150 mg ta blet RxNorm: 20000314 1 Tablet(s) PO daily 01/16/2015 01/15/2015 Inactive Vitamin D3 5,000 uni t tablet RxNorm: 135119 1 Tablet(s) PO daily No Start Date Active Zithromax Z-Andres 250 mg tablet RxNorm: 013680 1 Tablet(s) PO UD No Start Date 08/16/2016 Inactive z pack as directed irbesartan 150 mg ta blet RxNorm: 20000314 1 Tablet(s) PO daily No Start Date 01/15/2015 Inactive Vitamin D3 2,000 uni t capsule RxNorm: 477924 1 Capsule(s) PO daily No Start Date 07/22/2015 Inactive propranolol ER 120 m g capsule,24 hr,extended release RxNorm: 643832 1 Capsule(s) PO daily No Start Date 01/15/2015 Inactive hydrochlorothiazide 12.5 mg capsule RxNorm: 418106 1 Capsule(s) PO daily No Start Date 01/15/2015 Inactive Medication Administered No Medication Administered data Immunizations No Immunization data Assessments Condition Codes Effectiv e Dates Mixed hyperlipidemia ICD-10: E78.2 ICD-9: 272.4 04/20/2017 Vitamin D deficiency, unspecified IC D-10: E55.9 ICD-9: 268.9 04/20/2017 Impaired fasting glucose ICD-10: R73 .01 ICD-9: 790.21 04/20/2017 Essential (primary) hypertension ICD -10: I10 ICD-9: 401.9 04/20/2017 Body mass index (BMI) 36.0-36.9, adult ICD-10: Z68.36 ICD-9: V85.36 09/21/2015 Other abnormal glucose ICD-10: R73.0 9 ICD-9: 790.29 07/23/2015 Morbid (severe) obesity due to excess calories ICD-10: E66.01 ICD-9: 278.01 07/23/2015 Hyperlipidemia ICD-9: 272.4 01/16/2015 VITAMIN D DEFICIENCY ICD-9: 268.9 01/16/2015 ESSENTIAL HYPERTENSION ICD-9: 401.9 01/16/2015 Elevated blood sugar ICD-9: 790.29 01/16/2015 Reason For Visit Reason For Visit Effective Dates Notes hypertension 04/20/2017 hypertension 03/10/2016 weight loss 09/21/2015 [...] 30.5 pg 04/20/2017 Cbc With Differential Ord2 Glenn% 7.2 % 04/20/2017 Cbc With Differential Ord2 [...] 2.21 K/ul 04/20/2017 Cbc With Differential Ord2 Glenn ABS# 0.6 K/ul 04/20/2017 Cbc With Differential Ord2 Eos ABS# 0.1 K/ul 04/20/2017 Cbc With Differential Ord2 Baso ABS# 0.0 K/ul 04/20/2017 %Hba1C Xml129 % HbA1c 80384-3 5.9 % 04/20/2017 %Hba1C Xsh548 Gluc Ave 123 mg/dL 04/20/2017 Vitamin D 25 Oh Ssw7284 VITAMIN D, 25 HYDROXY 53.49 ng/mL 04/20/2017 Comp Metabolic Smd823 NA 139 mEq/L 04/20/2017 Comp Metabolic Qsl829 K 4.4 mEq/L 04/20/2017 Comp Metabolic Vzy872 CL 100 mEq/L 04/20/2017 Comp Metabolic Nqe518 CO2 27.0 mEq/L 04/20/2017 Comp Metabolic Ukp107 AN ION GAP 16 04/20/2017 Comp Metabolic Jzv145 GL UCOSE 113 mg/dL 04/20/2017 Comp Metabolic Quw471 Cr eat 0.8 mg/dL 04/20/2017 Comp Metabolic Nvn054 eG FR 77 ml/min/1.73m2 04/20 Comp Metabolic Qrw040 BUN 17 mg/dL 04/20/2017 Comp Metabolic Xmr737 B/ C Ratio 21.5 Ratio 04/20/2017 Comp Metabolic Esf725 CA LCIUM 9.9 mg/dL 04/20/2017 Comp Metabolic Utm636 AL K PHOS 69 U/L 04/20/2017 Comp Metabolic Gqw998 T(SGOT) 16 U/L 04/20/2017 Comp Metabolic Gis038 AL T(SGPT) 13 U/L 04/20/2017 Comp Metabolic Qiv000 BI LI T 0.7 mg/dL 04/20/2017 Comp Metabolic Elg728 AL BUMIN 4.6 g/dL 04/20/2017 Comp Metabolic Yro014 TP RO 7.1 g/dL 04/20/2017 Comp Metabolic Nbj842 GL OB 2.6 g/dL 04/20/2017 Comp Metabolic Ucg636 A/ G Ratio 1.8 Ratio 04/20/2017 Comp Metabolic Utq637 Os mo 280 mOsmo 04/20/2017 Quick Strep Roz1681 Quic k Strep Negative 08/17/2016 Influenza A+B Wad677 Inf anastacia A+B Negative 08/17/2016 Vitamin D 25 Oh Xnj2121 VITAMIN D, 25 HYDROXY 43.92 ng/mL 03/11/2016 %Hba1C Nfv906 % HbA1c 72524-9 5.9 % 03/10/2016 %Hba1C Uwc784 Gluc Ave 123 mg/dL 03/10/2016 Comp Metabolic Ucr949 NA 136 mEq/L 03/10/2016 Comp Metabolic Pir453 K 4.1 mEq/L 03/10/2016 Comp Metabolic Wss496 CL 100 mEq/L 03/10/2016 Comp Metabolic Gpa476 CO2 29.0 mEq/L 03/10/2016 Comp Metabolic Tva091 AN ION GAP 11 03/10/2016 Comp Metabolic Lea407 GL UCOSE 110 mg/dL 03/10/2016 Comp Metabolic Cet510 Cr eat 0.8 mg/dL 03/10/2016 Comp Metabolic Qvj545 eG FR 74 ml/min/1.73m2 03/10 Comp Metabolic Thc312 BUN 26 mg/dL 03/10/2016 Comp Metabolic Odg199 B/ C Ratio 31.7 Ratio 03/10/2016 Comp Metabolic Ugc419 CA LCIUM 9.7 mg/dL 03/10/2016 Comp Metabolic Bfg157 AL K PHOS 62 U/L 03/10/2016 Comp Metabolic Tjc261 T(SGOT) 17 U/L 03/10/2016 Comp Metabolic Gzy697 AL T(SGPT) 15 U/L 03/10/2016 Comp Metabolic Vho256 BI LI T 0.6 mg/dL 03/10/2016 Comp Metabolic Pol636 AL BUMIN 4.4 g/dL 03/10/2016 Comp Metabolic Bkz069 TP RO 7.0 g/dL 03/10/2016 Comp Metabolic Ghp428 GL OB 2.6 g/dL 03/10/2016 Comp Metabolic Yxi660 A/ G Ratio 1.7 Ratio 03/10/2016 Comp Metabolic Ske935 Os mo 277 mOsmo 03/10/2016 Lipid Ord30 [...] 44.2 % 03/10/2016 Cbc With Differential Ord2 Lymph% 31.0 % 03/10/2016 Cbc With Differential Ord2 MCV 93.2 fl 03/10/2016 Cbc With Differential Ord2 Glenn% 7.9 % 03/10/2016 Cbc With Differential Ord2 MCH 30.4 pg 03/10/2016 Cbc With Differential Ord2 Eos% [...] 2.44 K/ul 03/10/2016 Cbc With Differential Ord2 Glenn ABS# 0.6 K/ul 03/10/2016 Cbc With Differential Ord2 Eos ABS# 0.1 K/ul 03/10/2016 Cbc With Differential Ord2 Baso ABS# 0.0 K/ul 03/10/2016 Lipid Ord30 CHOL 196 mg/dL 09/21/2015 Lipid Ord30 HDL 34.0 mg/dl 09/21/2015 Lipid Ord30 TRIG 190 mg/dL 09/21/2015 Lipid Ord30 LDL 124 mg/dL 09/21/2015 Lipid Ord30 C/HDL 5.8 Ratio 09/21/2015 %Hba1C Lwl333 % HbA1c 43124-8 5.8 % 09/21/2015 %Hba1C Zec509 Gluc Ave 120 mg/dL 09/21/2015 Vitamin D 25 Oh Jip9980 VITAMIN D, 25 HYDROXY 32.62 ng/mL 09/21/2015 Comp Metabolic Svj063 NA 139 mEq/L 09/21/2015 Comp Metabolic Sci550 K 4.0 mEq/L 09/21/2015 Comp Metabolic Cfc681 CL 101 mEq/L 09/21/2015 Comp Metabolic Kio065 CO2 30.0 mEq/L 09/21/2015 Comp Metabolic Buv224 AN ION GAP 12 09/21/2015 Comp Metabolic Lek270 GL UCOSE 98 mg/dL 09/21/2015 Comp Metabolic Okh796 Cr eat 0.8 mg/dL 09/21/2015 Comp Metabolic Psx060 eG FR 81 ml/min/1.73m2 09/20 Comp Metabolic Ftw828 BUN 14 mg/dL 09/21/2015 Comp Metabolic Vym360 B/ C Ratio 18.4 Ratio 09/21/2015 Comp Metabolic Fgt483 CA LCIUM 9.5 mg/dL 09/21/2015 Comp Metabolic Guj078 AL K PHOS 57 U/L 09/21/2015 Comp Metabolic Cza317 T(SGOT) 12 U/L 09/21/2015 Comp Metabolic Yif804 AL T(SGPT) 10 U/L 09/21/2015 Comp Metabolic Fih774 BI LI T 0.7 mg/dL 09/21/2015 Comp Metabolic Xml128 AL BUMIN 4.2 g/dL 09/21/2015 Comp Metabolic Plq674 TP RO 6.7 g/dL 09/21/2015 Comp Metabolic Hxt927 GL OB 2.5 g/dL 09/21/2015 Comp Metabolic Pir104 A/ G Ratio 1.7 Ratio 09/21/2015 Comp Metabolic Coh731 Os mo 278 mOsmo 09/21/2015 Tsh Ord6 [...] 29.8 % 09/21/2015 Cbc With Differential Ord2 Glenn% 8.7 % 09/21/2015 Cbc With Differential Ord2 [...] 2.33 K/ul 09/21/2015 Cbc With Differential Ord2 Glenn ABS# 0.7 K/ul 09/21/2015 Cbc With Differential Ord2 Eos ABS# 0.1 K/ul 09/21/2015 Cbc With Differential Ord2 Baso ABS# 0.0 K/ul 09/21/2015 Cbc With Differential Ord2 New Analyzer Notice Please note new ref ranges s tarting 07-22-2015 due to implemntation of new five part differential hematolgy analyzer. 09/21/2015 Tsh Ord6 hTSH II 1.39 uIU/mL 01/16/2015 Comp Metabolic Udp758 NA 137 mEq/L 01/16/2015 Comp Metabolic Ywo160 K 4.3 mEq/L 01/16/2015 Comp Metabolic Kan973 CL 101 mEq/L 01/16/2015 Comp Metabolic Tbc968 CO2 30.0 mEq/L 01/16/2015 Comp Metabolic Unu530 AN ION GAP 10 01/16/2015 Comp Metabolic Kjm255 GL UCOSE 111 mg/dL 01/16/2015 Comp Metabolic Idv424 Cr eat 0.8 mg/dL 01/16/2015 Comp Metabolic Asr812 eG FR 78 ml/min/1.73m2 01/16 Comp Metabolic Vaw381 BUN 14 mg/dL 01/16/2015 Comp Metabolic Yfr721 B/ C Ratio 17.7 Ratio 01/16/2015 Comp Metabolic Mrh606 CA LCIUM 9.8 mg/dL 01/16/2015 Comp Metabolic Wdg516 AL K PHOS 76 U/L 01/16/2015 Comp Metabolic Ffv917 T(SGOT) 12 U/L 01/16/2015 Comp Metabolic Dlk777 AL T(SGPT) 11 U/L 01/16/2015 Comp Metabolic Arv156 BI LI T 0.7 mg/dL 01/16/2015 Comp Metabolic Cnp261 AL BUMIN 4.3 g/dL 01/16/2015 Comp Metabolic Vle059 TP RO 7.0 g/dL 01/16/2015 Comp Metabolic Vmk180 GL OB 2.7 g/dL 01/16/2015 Comp Metabolic Usp241 A/ G Ratio 1.6 Ratio 01/16/2015 Comp Metabolic Gzx236 Os mo 275 mOsmo 01/16/2015 Lipid Ord30 CHOL 229 mg/dL 01/16/2015 Lipid Ord30 HDL 35.0 mg/dl 01/16/2015 Lipid Ord30 TRIG 282 mg/dL 01/16/2015 Lipid Ord30 LDL 138 mg/dL 01/16/2015 Lipid Ord30 C/HDL 6.5 Ratio 01/16/2015 Cbc With Differential Ord2 WBC 10.0 [...] With Differential Ord2 RDW 13.5 % 01/16/2015 %Hba1C Grm184 % HbA1c 54279-4 5.8 % 01/16/2015 %Hba1C Mjf753 Gluc Ave 120 mg/dL 01/16/2015 Vitamin D 25 Oh Jpb0234 VITAMIN D, 25 HYDROXY 19.37 ng/mL 01/16/2015 Review of Systems System Result Effective Dates Constitutional No recent illness 04/20/2017 Constitutional No [...] to light and accomodation 01/16/2015 None Procedures No Procedures data Vital Signs Date Vital 04/20/2017 Blood Pressure 1: 122/84 Code: 8480-6 BMI: 36.7 Code: 26446-5 Heart Rate 1: 75 bpm Height: 5'4" SpO2: 95% Weight: 214 lbs 03/10/2016 Blood Pressure 1: 120/86 Code: 8480-6 BMI: 36.6 Code: 56837-1 Heart Rate 1: 70 bpm Height: 5'4" SpO2: 96% Weight: 213 lbs 09/21/2015 Blood Pressure 1: 128/82 Code: 8480-6 BMI: 36.0 Code: 81409-1 Heart Rate 1: 74 bpm Height: 5'4" SpO2: 97% Weight: 210 lbs 07/23/2015 Blood Pressure 1: 120/80 Code: 8480-6 BMI: 36.7 Code: 33753-3 Heart Rate 1: 73 bpm Height: 5'4" SpO2: 96% Weight: 214 lbs 01/16/2015 Blood Pressure 1: 130/84 Code: 8480-6 BMI: 37.4 Code: 03820-2 Heart Rate 1: 60 bpm Height: 5'4" Weight: 218 lbs Functional Status No Functional Status data History of Present Illness Symptom Name Status Resu lt Effective Date Notes hypertension Quality chr onic 04/20/2017 None hypertension Onset and Resolution ongoing 04/20/2017 None hypertension Onset of Symptom during adulthood 04/20/2017 None hypertension Severity mi ld 04/20/2017 None hypertension Frequency of Episodes unchanged 04/20/2017 None hypertension Significant Medical Condition s cardiac disease 04/20/2017 dad from [place] age 49, brother also with heart attack [...] Condition s cardiac disease 03/10/2016 dad from [place] age 49, brother also with heart attack [...] Condition s cardiac disease 07/23/2015 dad from [place] age 49, brother also with heart attack hypertension Triggers no known associated factors 07/23/2015 None hypertension Alleviating Factors medication 07/23/2015 None hypertension Pertinent Findings Denies dizziness 07/23/2015 None hypertension Pertinent Findings Denies dyspnea 07/23/2015 None hypertension Pertinent Findings Denies edema 07/23/2015 None hypertension Onset and Resolution ongoing 01/16/2015 None hypertension Significant Medical Condition s cardiac disease 01/16/2015 dad from [place] age 49, brother also with heart attack [...] Encounters Encounter Performer Loca tion Codes Date ([id number]) [id number] EST. P ATIENT, LEVEL IV Diagnosis: Essential (primary) hypertension[ICD10: I10] Diagnosis: Mixed hyperlipidemia[ICD10: E78.2] Diagnosis: Vitamin D deficiency, unspecified[ICD10: E55.9] Diagnosis: Impaired fasting glucose[ICD10: R73.01] Jaycee Graves MD, [facility] CPT-4: 10582 04/20/2017 ([id number]) 79162 EST. P ATIENT, LEVEL IV Diagnosis: Essential (primary) hypertension[ICD10: I10] Diagnosis: Mixed hyperlipidemia[ICD10: E78.2] Diagnosis: Impaired fasting glucose[ICD10: R73.01] Diagnosis: Vitamin D deficiency, unspecified[ICD10: E55.9] Jaycee Graves MD, [facility] CPT-4: 22372 03/10/2016 ([id number]) 79282 EST. P ATIENT, LEVEL IV Diagnosis: Essential (primary) hypertension[ICD10: I10] Diagnosis: Mixed hyperlipidemia[ICD10: E78.2] Diagnosis: Vitamin D deficiency, unspecified[ICD10: E55.9] Diagnosis: Impaired fasting glucose[ICD10: R73.01] Diagnosis: Body mass index (BMI) 36.0-36.9, adult[ICD10: Z68.36] Jaycee Graves MD, [facility] CPT-4: 43728 09/21/2015 ([id number]) 50423 EST. P ATIENT, LEVEL IV Diagnosis: Essential (primary) hypertension[ICD10: I10] Diagnosis: Mixed hyperlipidemia[ICD10: E78.2] Diagnosis: Other abnormal glucose[ICD10: R73.09] Diagnosis: Morbid (severe) obesity due to excess calories[ICD10: E66.01] [facility] CPT-4: 46831 07/23/2015 ([id number]) OFFICE VISI T, NEW - LEVEL 3 Diagnosis: ESSENTIAL HYPERTENSION[ICD9: 401.9] Diagnosis: Hyperlipidemia[ICD9: 272.4] Diagnosis: Elevated blood sugar[ICD9: 790.29] Diagnosis: VITAMIN D DEFICIENCY[ICD9: 268.9] [facility] CPT- 4: 58706 01/16/2015 Plan of Care Planned Activity Notes C odes Status Date Appointment: Jaycee Trevino WPtel: [address] [place], [place] [phone] (30 min) Complex 04/20/2017 Patient Education: Patient Medication Summary Completed 04/20/2017 Patient Education: Obesity Completed 04/20/2017 Patient Education: Hypertension Completed 04/20/2017 Care Plan: Comp Metabolic Pending 04/20/2017 Care Plan: Cbc With Differential Pending 04/20/2017 Care Plan: %Hba1C LOIN C : 16428-6 Pending 04/20/2017 Care Plan: Tsh Pending 04/20/2017 Care Plan: Lipid Pending 04/20/2017 Care Plan: Vitamin D 25 Oh Pending 04/20/2017 Appointment: Lab Draw 08/17/2016 Appointment: Selene Roche WPtel: [address] [place], [place] [phone] [facility] - Welcome to Medicare visit 07/28/2016 Patient Education: Patient Medication Summary Completed 03/10/2016 Patient Education: Obesity Completed 03/10/2016 Appointment: Nkechi Graves WPtel: [address] [place], [place] [phone] (30 min) Complex 09/23/2015 Appointment: (30 min) Complex 09/21/2015 Patient Education: Patient Medication Summary Completed 09/21/2015 Patient Education: Obesity Completed 09/21/2015 Patient Education: Hypertension Completed 09/21/2015 Care Plan: BMI Above normal followup ANGELA F-MGMT EDUC & TRAIN 1 PT Ordered 09/21/2015 [facility] [phone] [phone] ([facility] min) Moderate 07/23/2015 App[facility]ment[facility] [phone] [phone] (30 min) Complex 07/23/2015 Patient Education: Patient Medication Summary Completed 07/23/2015 Patient Education: Hypertension Completed 07/23/2015 Appointment: (S) New Patient 01/16/2015 Patient Education: Patient Medication Summary Completed 01/16/2015 Patient Education: Hypertension Completed 01/16/2015 Instructions No Instructions
== END 2019-12-09 09:57 | disposition left against medical advice (07) ==
LOC: EDUNIT# 09:16 → ER 09:17
DX: S01.91XA Laceration without foreign body of unspecified part of head, initial encounter (principal); W19.XXXA Unspecified fall, initial encounter